=== PATIENT | female | born 1960 | race Caucasian/White ===

== ENCOUNTER 2021-06-15 12:10 | Outpatient (REF) | payer MEDICARE, BC, SELFPAY ==
[2021-06-15 14:09] LABS: Appearance Urine CLEAR; Color Urine YELLOW; Glucose Urine UA NEG (NEG); Leukocyte Esterase Urine NEG (NEG); Nitrite Urine NEG (NEG); Urine Blood NEG (NEG); Urine Ketones NEG (NEG); Urine Protein NEG (NEG-TRACE)
== END 2021-06-15 12:11 | disposition home or self-care (01) ==
LOC: HO.MANLNP 12:10
PROVIDERS: PCP Internal Medicine; Visit Provider Physician Assistant
DX: R30.9 Painful micturition, unspecified (principal)
CPT/HCPCS: 81003; 87086

== ENCOUNTER 2022-06-24 08:03 | Outpatient (REF) | payer MEDICARE, BC, SELFPAY ==
--- NOTE | ~2022-06-24 | XR_ITS ---
EXAMINATION: XR SHOULDER, LEFT CLINICAL INFORMATION: Pain COMPARISON: None TECHNIQUE: Three views of the left shoulder. FINDINGS: Bone alignment is normal. No fracture or dislocation is seen. There are small osteophytes along the inferior glenohumeral joint. Joint spaces are otherwise normal. Soft tissues are normal. XR/XR shoulder LT min 2V IMPRESSION: Mild degenerative changes.
== END 2022-06-24 08:04 | disposition home or self-care (01) ==
LOC: HO.HOSX 08:03
PROVIDERS: Visit Provider Orthopaedic Surgery
DX: M19.012 Primary osteoarthritis, left shoulder (principal); M77.8 Other enthesopathies, not elsewhere classified
CPT/HCPCS: 20610; 73030; 99202; J1100

== ENCOUNTER 2024-04-29 06:45 | Outpatient (REF) | payer MEDICARE, BC, SELFPAY ==
--- NOTE | ~2024-04-29 | XR_ITS ---
EXAMINATION: XR SHOULDER, RIGHT CLINICAL INFORMATION: Pain. COMPARISON: Radiographs dated 11 22. TECHNIQUE: AP external rotation, Grashey, scapular Y, and axillary views of the right shoulder. FINDINGS: There is mild bony demineralization. The glenohumeral joint is intact and shows moderate osteoarthritic change, with exuberant peripheral osteophyte formation at inferior articular surface of the humeral head. The acromioclavicular and coracoclavicular levels are normal. There is a distal acromial undersurface osteophyte, and there is cortical irregularity of the proximal right humerus. No fracture or dislocation is seen. This no focal soft tissue, gas or foreign body. XR/XR shoulder RT min 2V IMPRESSION: 1. There is marked osteoarthritic change of the right glenohumeral joint. 2. Findings suggest right rotator cuff impingement, without nellie calcific tendinitis noted.
== END 2024-04-29 06:46 | disposition home or self-care (01) ==
LOC: HO.HOSX 06:45
PROVIDERS: Visit Provider Orthopaedic Surgery
DX: M19.011 Primary osteoarthritis, right shoulder (principal)
CPT/HCPCS: 20610; 73030; 99212; J0665; J1100

== ENCOUNTER 2024-04-29 13:02 | Outpatient (AMB) | payer MEDICARE, BC, SELFPAY ==
--- NOTE | 2024-04-29 13:06 | A.OFFVIS_ITS ---
Vital Signs 04/29/24 13:10 Height 5 ft 6 in Weight 287 lb BMI 46.3 Intake Visit Reasons: New Prob - Right Shoulder Pain Intake Note: Bernarda is a 63 year old right hand dominant female who presents today for a new problem visit with complaints of right shoulder pain. No injury. She was last seen for her left shoulder on 06/24/22 where the left shoulder was injected which was helpful . MRI done at [facility] of the right shoulder on 03/12/24: Impression: 1. Severe arthritic changes at GH Joint 2. Diffuse Labral Tearing 3. No evidence of RTC tearing 4. Subluxation of tendon of the long head of the biceps, perched upon the anterior lip of the biciptal groove, exhibiting diffuse tendinopathy without full thickness diruption. Allergies walnut Allergy (Severe, Verified 06/24/22 09:06) THROAT SWELLING oxycodone [OXYCODONE] Allergy (Mild, Verified 06/24/22 09:06) ITCHING walnuts Allergy (Unknown, Uncoded 06/24/22 09:06) Anaphylaxis HPI HPI New Prob - Right Shoulder Pain: Details: Bernarda is a 63 year old right hand dominant female who presents today for a new problem visit with complaints of right shoulder pain. No injury. She was last seen for her left shoulder on 06/24/22 where the left shoulder was injected which was helpful . She describes right shoulder discomfort for months. She has been doing home exercises but describes pain at night and with overhead activity. [facility] Medical History (Updated 05/03/24 @ 10:35 by Jt Shannon MD) Rheumatoid arthritis Hypertension Surgical History (Updated 06/24/22 @ 09:09 by Catrina Mann CMA) Status post left breast lumpectomy H/O shoulder surgery H/O right mastectomy Previous section Social History (Updated 06/24/22 @ 09:09 by Catrina Mann CMA) Current occupational status: disabled Physical Exam Vital Signs: BMI result Body Mass Index 46.3 Extrem Other: /hp 4+/5 EC +H/N Results Reviewed Results Reviewed: MRI done at [facility] of the right shoulder on 03/12/24: Impression: 1. Severe arthritic changes at GH Joint 2. Diffuse Labral Tearing 3. No evidence of RTC tearing 4. Subluxation of tendon of the long head of the biceps, perched upon the anterior lip of the biciptal groove, exhibiting diffuse tendinopathy without full thickness diruption. Assessment & Plan Assessment & Plan (1) Primary osteoarthritis, right shoulder: Code(s): M19.011 - Primary osteoarthritis, right shoulder Category: Medical Plan: Bernarda is a 63 yo F iwth right shoulder OA. I injected her SAS as she is having night pain and pain with overhead activity. We discussed PT. At this point she can return to see me PRN. Arthroplasty is an option but not one that she is currently interested in. Orders: Orders XR shoulder RT min 2V 04/29/24 M25.519 - Pain in unspecified shoulder Coding Level of Care Code Est Pt Level 4 (03429) Diagnoses Primary osteoarthritis, right shoulder M19.011
[2024-04-29 13:10] VITALS: BMI 46.3
== END 2024-04-29 14:20 | disposition home or self-care (01) ==
PROVIDERS: PCP Internal Medicine; Visit Provider Orthopaedic Surgery
DX: M19.011 Primary osteoarthritis, right shoulder (principal)
CPT/HCPCS: 99214

== ENCOUNTER 2025-08-17 18:41 | Outpatient (REF) | payer MEDICARE, BC, SELFPAY ==
[2025-08-17 18:43] LABS: MANUAL DIFF FLAG NO
--- OUTSIDE RECORDS SUMMARY | 2025-08-17 18:47 | XMS_ITS | Encounter Summary ---
Author Organization [facility] Address [address] [place] [address] Phone Care Team Providers Care Lpn Or Medical Assistant Name Role Phone Kilo Horowitz MD Unavailable [email or web address] Bhavana Espinoza NP Unavailable [phone] BigLuciano quinn DO Primary Care Provider + Adrianne Mehta MD Unavailable [phone] Danielle Wright VENEER STACKER Unavailable [phone] Ashley Cabello MD Unavailable Jyoti Stone MD Unavailable [phone] Adrianne Mehta MD Unavailable [phone] Luciano Yuen DO Unavailable + Luciano Yuen DO Primary Care Provider + Luciano Yuen DO Unavailable + Encounter Details Date Type Department Care Team (Late st Contact Info) Description 06/15/2021 Procedure Pass [address] [address] Social History Tobacco Use Types Packs/Day Years Used Date Smoking Tobacco: Former Cigarettes 0.8 5 1 988 - 1992 Smokeless Tobacco: Never Alcohol Use Standard Drinks/Week Comments Yes 1 (1 standard drink = 0.6 oz pure alcohol) occasional glass of wine every few months Comments No Sex and Gender Information Value Date Recorded Sex Assigned at Not on file Legal Sex Female 9:48 PM EDT Gender Identity Not on file Sexual Orientation Not on file documented as of this encounter Plan of Treatment Upcoming Encounters Date Type Department Care Team (Late st Contact Info) Description 09/14/2025 2:00 PM EDT Office Visit [facility] [address] [place] [address] Adrianne Mehta MD [address] [place] [address] 09/28/2025 8:00 AM EST Office Visit [facility] [address] [facility] 3rd Floor, [address] [address] Felix Harvey MD [address] [place] [address] 10/14/2025 8:40 AM EST Office Visit [facility] Rhe[facility]ology [address] [place] [address] Katerine Velazquez MD, MPH [address] [place] [address] documented as of this encounter Visit Diagnoses Not on filedocumented in this encounter Care Teams Lpn Or Medical Assistant Relationship Specialty Start Date End Date Luciano Yuen DO [address] [place] [address] PCP - General Internal Medicine 03/18/19 12/09/24 Luciano Yuen DO [address] [place] [address] [place] [address] PCP - General Internal Medicine 12/10/24 Kilo Horowitz MD [email or web address] Historical LMR Provider 09/06/17 Bhavana Espinoza NP [address] [place] [address] Historical LMR Provider 09/06/17 2 Adrianne Mehta MD [address] [place] [address] [email or web address] Primary Oncologist Medical Oncology 06/13/21 06/11/22 Danielle Wright FNP [address] [place] [address] [email or web address] Nurse Practitioner Medical Oncology 09/07/21 Ashley Cabello MD [address] [place] [address] [address] [place] [address] [email or web address] General Surgery 09/11/21 Jyoti Stone MD [address] [place] [address] [email or web address] Oncology 01/01/22 Adrianne Mehta MD [address] [place] [address] Primary Oncologist Medical Oncology 06/13/21 Luciano Yuen DO [address] [place] [address] [place] [address] [email or web address] Insurance Assigned Provider 02/21/24 11/22/24 Luciano Yuen DO [address] [place] [address] [email or web address] Insurance Assigned Provider 02/20/25 documented as of this encounter Additional Source Comments The information contained in this document represents components of the legal health record. It is not the complete legal health record.[facility]
--- OUTSIDE RECORDS SUMMARY | 2025-08-17 18:47 | XMS_ITS | Encounter Summary ---
Author Organization [facility] Address [address] [place] [address] Phone Care Team Providers Care Manager Culture Name Role Phone Kilo Horowitz MD Unavailable [email or web address] Adrianne Mehta MD Unavailable [phone] Bhavana Espinoza MANAGER GROUP HOME Unavailable Bigda, Luciano A DO Primary Care Provider +[phone] Bigda, Luciano A DO Primary Care Provider + Bigda, Luciano A DO Unavailable Adrianne Mehta MD Unavailable [phone] Danielle Wright CAR VARNISHER Unavailable [phone] Ashley Cabello MD Unavailable Jyoti Stone MD Unavailable [phone] Adrianne Mehta MD Unavailable [phone] Bigda, Luciano A DO Unavailable + Bigda, Luciano A DO Primary Care Provider +[phone] Bigda, Luciano A DO Unavailable + Reason for Referral * MRI/CAT Scan - Closed Specialty Diagnoses / Procedures Referred By Contac t Referred To Contact Radiology Diagnoses Peripheral tear of medial meniscus of right knee as current injury, initial encounter Procedures MRI Knee (Right) Luciano Yuen DO Phone: tel: fax: [email or web address] Referral ID Status Reason Start Date Expiration Date Visits Re quested Visits Authorized [id number] Closed 04/08/2018 06/06/2018 1 1 Encounter Details Date Type Department Care Team (Late Contact Info) Description 04/07/2018 Ancillary Orders Virtual Department [address] [place] [address] Luciano Yuen DO [address] [facility] [place] [address] [place] [address] [email or web address] Peripheral tear of medial meniscus of right knee as current injury, initial encounter Social History Tobacco Use Types Packs/Day Years Used Date Smoking Tobacco: Never Smokeless Tobacco: Never Alcohol Use Standard Drinks/Week Comments No 0 (1 standard drink = 0.6 oz pur e alcohol) Comments No Sex and Gender Information Value Date Recorded Sex Assigned at Not on file Legal Sex Female 9:48 PM EDT Gender Identity Not on file Sexual Orientation Not on file documented as of this encounter Plan of Treatment Upcoming Encounters Date Type Department Care Team (Late Contact Info) Description 09/14/2025 2:00 PM EDT Office Visit [facility] at [address] [address] Adrianne Mehta MD [address] [place] [address] 09/28/2025 8:00 AM EST Office Visit [facility] [address] [place] [address] 3rd Floor, [address] [place] [address] Felix Harvey MD [address] [place] [address] 10/14/2025 8:40 AM EST Office Visit [facility] Rhe[facility] [address] [place] [address] Katerine Velazquez MD, MPH [address] [facility], [address] [place] [address] [email or web address] documented as of this encounter Results * MRI KNEE WITHOUT CONTRAST (RIGHT) (04/12/2018 8:50 AM EDT) Anatomical Region Laterality Modality Knee Right Magnetic Resonan ce 04/12/2018 4:39 PM EDT Impressions 04/12/2018 6:42 PM EDT 1. Limited study as described above. 2. Extrusion of the remaining posterior horn of the lateral meniscus. 3. Extrusion of the remaining anterior horn of the medial meniscus. 4. Probably complete tear of the anterior cruciate ligament. 5. Advanced tricompartmental cartilage loss with adjacent degenerative type changes of the bones as described above. 6. Focal longitudinal tear of the medial collateral ligament. 7. Suggestion of partial thickness tear of the lateral collateral ligament and popliteal tendon attachment as described above. POS - [id number] Edited by: Steffi Brantley on 04/12/2018 6:36 PM Narrative 04/12/2018 6:42 PM EDT EXAM: MRI KNEE WITHOUT CONTRAST (RIGHT) COMPARISON: Radiograph of the bilateral knees on March 03, 2017. TECHNIQUE: Exam performed on a 1.5 Telma high-field MRI scanner. Axial proton density with fat suppression, coronal proton density and proton density with fat suppression, sagittal T1, oblique sagittal proton density and proton density with fat suppression parallel to the plane of the ACL sequences were obtained. FINDINGS: Motion artifact partially limits evaluation. BONES AND SOFT TISSUES: No fracture or dislocation. Cystic changes surrounded by mild edema involving the medial femoral condyle and medial tibial plateau. Areas of bone marrow edema surrounding cystic changes are also noted in the anterior nonweight bearing and weight bearing aspects of lateral femoral condyle. Mild soft tissue swelling in the medial aspect of the knee. CARTILAGE: Patellofemoral compartment: Irregularity of the cartilage overlying the patella and trochlear region. Medial compartment: Near complete loss of the cartilage overlying the medial femoral condyle and medial tibial plateau. Lateral compartment: Near complete loss of the cartilage in the medial aspect of the lateral femoral condyle and lateral tibial plateau. FLUID: Small suprapatellar joint effusion. TENDONS AND LIGAMENTS: Longitudinal focal tear of the medial collateral ligament. Iliotibial band appears intact. Suggestion of partial thickness tear of the lateral collateral ligament at insertion of the lateral femoral condyle. Suggestion of partial thickness tear of the popliteal tendon attachment into the lateral femoral condyle. Posterior cruciate ligament is intact. The fibers of the anterior cruciate ligament are not identified. The quadriceps and patellar tendons are intact. MENISCI: Lateral meniscus: The anterior horn and body of the lateral meniscus are not seen, probably completely torn. Extrusion of the posterior horn of the meniscus. Medial meniscus: Extrusion of the anterior horn of the medial meniscus. Very small amount of residual meniscal material of the body and posterior horn. Procedure Note Zoë Alfaro MD - 04/12/2018 EXAM: MRI KNEE WITHOUT CONTRAST (RIGHT) COMPARISON: Radiograph of the bilateral knees on March 03, 2017. TECHNIQUE: Exam performed on a 1.5 Telma high-field MRI scanner. Axialproton density with fat suppression, coronal proton density and protondensity with fat suppression, sagittal T1, oblique sagittal proton densityand proton density with fat suppression parallel to the plane of the ACLsequences were obtained. FINDINGS: Motion artifact partially limits evaluation. BONES AND SOFT TISSUES: No fracture or dislocation. Cystic changessurrounded by mild edema involving the medial femoral condyle and medialtibial plateau. Areas of bone marrow edema surrounding cystic changes arealso noted in the anterior nonweight bearing and weight bearing aspects oflateral femoral condyle. Mild soft tissue swelling in the medial aspect ofthe knee. CARTILAGE: Patellofemoral compartment: Irregularity of the cartilage overlying thepatella and trochlear region. Medial compartment: Near complete loss of the cartilage overlying themedial femoral condyle and medial tibial plateau. Lateral compartment: Near complete loss of the cartilage in the medialaspect of the lateral femoral condyle and lateral tibial plateau. FLUID: Small suprapatellar joint effusion. TENDONS AND LIGAMENTS: Longitudinal focal tear of the medial collateral ligament. Iliotibial bandappears intact. Suggestion of partial thickness tear of the lateralcollateral ligament at insertion of the lateral femoral condyle.Suggestion of partial thickness tear of the popliteal tendon attachmentinto the lateral femoral condyle. Posterior cruciate ligament is intact. The fibers of the anterior cruciateligament are not identified. The quadriceps and patellar tendons are intact. MENISCI: Lateral meniscus: The anterior horn and body of the lateral meniscus arenot seen, probably completely torn. Extrusion of the posterior horn of themeniscus. Medial meniscus: Extrusion of the anterior horn of the medial meniscus.Very small amount of residual meniscal material of the body and posteriorhorn. IMPRESSION: 1. Limited study as described above. 2. Extrusion of the remaining posterior horn of the lateral meniscus. 3. Extrusion of the remaining anterior horn of the medial meniscus. 4. Probably complete tear of the anterior cruciate ligament. 5. Advanced tricompartmental cartilage loss with adjacent degenerativetype changes of the bones as described above. 6. Focal longitudinal tear of the medial collateral ligament. 7. Suggestion of partial thickness tear of the lateral collateralligament and popliteal tendon attachment as described above. POS - [id number] Edited by: Steffi Brantley on 04/12/2018 6:36 PM Luciano Yuen DO IM MR EXTREMITY Final Result documented in this encounter Visit Diagnoses Diagnosis Peripheral tear of medial meniscus of right knee as current injury, initial encounter Peripheral tear of medial meniscus of right knee as current injury, initial encounter documented in this encounter Care Teams Manager Culture Relationship Specialty Start Date End Date Luciano Yuen DO [address] [place] [address] PCP - General 10/16/17 03/17/19 Luciano Yuen DO [address] [place] [address] PCP - General Internal Medicine 03/18/19 12/09/24 Luciano Yuen DO [address] [place] [address] PCP - General Internal Medicine 12/10/24 Kilo Horowitz MD [email or web address] Historical LMR Provider 09/06/17 Adrianne Mehta MD [address] [place] [address] [email or web address] Historical LMR Provider 09/06/17 06/12/21 Bhavana Espinoza NP [address] [place] [address] Historical LMR Provider 09/06/17 2 Luciano Yuen DO [address] [place] [address] [email or web address] Insurance Assigned Provider 03/20/19 06/12/21 Adrianne Mehta MD [address] [place] [address] Primary Oncologist Medical Oncology 06/13/21 06/11/22 Danielle Wright, CAR VARNISHER [address] [place] [address] Nurse Practitioner Medical Oncology 09/07/21 Ashley Cabello MD [address] [facility] 8 [place] [address] [email or web address] General Surgery 09/11/21 Jyoti Stone MD [address] [place] [address] [email or web address] Radiation Oncology 01/01/22 Adrianne Mehta MD [address] [place] [address] [email or web address] Primary Oncologist Medical Oncology 06/13/21 Luciano Yuen DO [address] [place] [address] [email or web address] Insurance Assigned Provider 02/21/24 11/22/24 Luciano Yuen DO [address] [place] [address] [email or web address] Insurance Assigned Provider 02/20/25 documented as of this encounter Additional Source Comments The information contained in this document represents components of the legal health record. It is not the complete legal health record.[facility]
--- OUTSIDE RECORDS SUMMARY | 2025-08-17 18:47 | XMS_ITS | Encounter Summary ---
Author Organization [facility] Address [address] [place] [address] [address] [place] [address] Phone Care Team Providers Care Child Support Officer Name Role Phone Kilo Horowitz MD Unavailable [email or web address] Adrianne Mehta MD Unavailable [phone] Bhavana Espinoza MUSEUM SPECIALIST Unavailable Bigda, Luciano A DO Primary Care Provider [phone] Bigda, Luciano A DO Primary Care Provider [phone] Bigda, Luciano A DO Unavailable Adrianne Mehta MD Unavailable [phone] Danielle Wright TOPOGRAPHICAL SURVEYOR Unavailable [phone] Ashley Cabello MD Unavailable Jyoti Stone MD Unavailable [phone] Adrianne Mehta MD Unavailable [phone] Bigda, Luciano A DO Unavailable Bigda, Luciano A DO Primary Care Provider [phone] Bigda, Luciano A DO Unavailable Encounter Details Date Type Department Care Team (Late st Contact Info) Description 04/07/2018 Procedure Pass [facility], [address] [id number] Social History Tobacco Use Types Packs/Day Years [...] on file documented as of this encounter Last Filed Vital Signs Vital Sign Reading Time Taken Comments Blood Pressure - - Pulse - - Temperature - - Respiratory Rate - - Oxygen Saturation - - Inhaled Oxygen Concentration - - Weight 111.1 kg (245 lb) 04/09/2018 9:32 AM EDT Height 170.2 cm (5' 7 ) 04/09/2018 9:32 AM EDT Body Mass Index 38.37 04/09/2018 9:32 AM EDT documented in this encounter Plan of Treatment Upcoming Encounters Date Type Department Care Team (Late st Contact Info) Description 09/14/2025 2:00 PM EDT Office Visit [facility] at [address] [address] Adrianne Mehta MD [address] [place] [address] 09/28/2025 8:00 AM EST Office Visit [facility] [address] [place] [address] Dr 3rd Floor, [address] [address] Felix Harvey MD [address] [place] [address] 10/14/2025 8:40 AM EST Office Visit [facility] Rheumatology [address] [place] [address] [place] [address] Katerine Velazquez MD, MPH [address] [place] [address] documented as of this encounter Visit Diagnoses Not on filedocumented in this encounter Care Teams Child Support Officer Relationship Specialty Start Date End Date Luciano uYen DO [address] [place] [address] PCP - General 10/16/17 03/17/19 FrandyLuciano quinnDO [address] [place] [address] PCP - General Internal Medicine 03/18/19 12/09/24 Alpa Luciano JinDO [address] [place] [address] PCP - General Internal Medicine 12/10/24 Kilo Horowitz MD [email or web address] Historical LMR Provider 09/06/17 Adrianne Mehta MD [address] [place] [address] Historical LMR Provider 09/06/17 06/12/21 Bhavana Espinoza NP [address] [place] [address] Historical LMR Provider 09/06/17 Luciano Yuen DO [address] [place] [address] Insurance Assigned Provider 03/20/19 06/12/21 Adrianne Mehta MD [address] [place] [address] Primary Oncologist Medical Oncology 06/13/21 06/11/22 Danielle Wright FNP [address] [place] [address] [email or web address] Nurse Practitioner Medical Oncology 09/07/21 Ashley Cabello MD [address] [facility] [address] [place] [address] [email or web address] General Surgery 09/11/21 Jyoti Stone MD [address] [place] [address] [email or web address] Oncology 01/01/22 Adrianne Mehta MD [address] [place] [address] [email or web address] Primary Oncologist Medical Oncology 06/13/21 Luciano Yuen DO [address] [place] [address] [email or web address] Insurance Assigned Provider 02/21/24 11/22/24 Luciano Yuen DO [address] [place] [address] Insurance Assigned Provider 02/20/25 documented as of this encounter Additional Source Comments The information contained in this document represents components of the legal health record. It is not the complete legal health record.[facility]
--- OUTSIDE RECORDS SUMMARY | 2025-08-17 18:47 | XMS_ITS | Encounter Summary ---
Author Organization [facility] Address [address] [place] [address] [address] [place] [address] Phone Care Team Providers Care Planting Material Carrier Name Role Phone Alpa, Luciano A DO Unavailable Kilo Horowitz MD Unavailable [email or web address] Adrianne Mehta MD Unavailable Bhavana Espinoza NP Unavailable Bigda, Luciano A DO Primary Care Provider [phone] Bigda, Luciano A DO Primary Care Provider [phone] Bigda, Luciano A DO Unavailable Adrianne Mehta MD Unavailable Danielle Wright MACHINE FILLER SHREDDER Unavailable [phone] Ashley Cabello MD Unavailable Jyoti Stone MD Unavailable [phone] Adrianne Mehta MD Unavailable Bigda, Luciano A DO Unavailable Bigda, Luciano A DO Primary Care Provider [phone] Bigda, Luciano A DO Unavailable Encounter Details Date Type Department Care Team (Late st Contact Info) Description 12/08/2017 Ancillary Orders [facility] External Provider Virtual Department [address] [place] [address] Andres Gamez [address] [place] [phone] [email or web address] Social History Tobacco Use Types Packs/Day Years [...] Description 09/14/2025 2:00 PM EDT Office Visit [facility] at [address] [address] Adrianne Mehta MD [address] [place] [address] 09/28/2025 8:00 AM EST Office Visit [facility] [address] [place] [address] 3rd Floor, [address] [place] [address] Felix Harvey MD [address] [place] [address] 10/14/2025 8:40 AM EST Office Visit [facility] Rheumatology [address] [place] [address] Katerine Velazquez MD, MPH [address] [place] [address], [address] [address] documented as of this encounter Visit Diagnoses Not on filedocumented in this encounter Care Teams Planting Material Carrier Relationship Specialty Start Date End Date Luciano Yuen DO [address] [place] [address] PCP - General 10/16/17 03/17/19 Luciano Yuen DO [address] [place] [address] [email or web address] PCP - General Internal Medicine 03/18/19 12/09/24 Luciano Yuen DO [address] [place] [address] PCP - General Internal Medicine 12/10/24 Luciano Yuen DO [address] [place] [address] Historical LMR Provider 09/06/17 12/08/17 Kilo Horowitz MD [email or web address] Historical LMR Provider 09/06/17 Adrianne Mehta MD [address] [place] [address] [email or web address] Historical LMR Provider 09/06/17 06/12/21 Bhavana Espinoza NP [address] [place] [address] Historical LMR Provider 09/06/17 Luciano Yuen DO [address] [place] [address] [email or web address] Insurance Assigned Provider 03/20/19 06/12/21 Adrianne Mehta MD [address] [place] [phone] [email or web address] Primary Oncologist Medical Oncology 06/13/21 06/11/22 Danielle Wright FNP [address] [place] [address] Nurse Practitioner Medical Oncology 09/07/21 Ashley Cabello MD [address] [place] [address] [address] [place] [address] General Surgery 09/11/21 Jyoti Stone MD [address] [place] [address] [email or web address] Oncology 01/01/22 Adrianne Mehta MD [address] [place] [address] [email or web address] Primary Oncologist Medical Oncology 06/13/21 Luciano Yuen DO [address] [place] [address] Insurance Assigned Provider 02/21/24 11/22/24 Luciano Yuen DO [address] [place] [address] Insurance Assigned Provider 02/20/25 documented as of this encounter Additional Source Comments The information contained in this document represents components of the legal health record. It is not the complete legal health record.[facility]
--- OUTSIDE RECORDS SUMMARY | 2025-08-17 18:47 | XMS_ITS | Encounter Summary ---
Author Organization [facility] Address [address] [place] [address] [address] [place] [address] Phone Care Team Providers Care Travertine Installer Name Role Phone Kilo Horowitz MD Unavailable [email or web address] Adrianne Mehta MD Unavailable Bhavana Espinoza HEALTH CENTER MANAGER Unavailable Bigda, Luciano A DO Primary Care Provider [phone] Bigda, Luciano A DO Primary Care Provider [phone] Bigda, Luciano A DO Unavailable Adrianne Mehta MD Unavailable Danielle Wright CROP SETTING OUT MACHINE OPERATOR Unavailable [phone] Ashley Cabello MD Unavailable Jyoti Stone MD Unavailable [phone] Adrianne Mehta MD Unavailable Bigda, Luciano A DO Unavailable Bigda, Luciano A DO Primary Care Provider [phone] Bigda, Luciano A DO Unavailable Encounter Details Date Type Department Care Team (Late st Contact Info) Description 02/08/2019 Ancillary Orders Virtual Department [address] [place] [address] Luciano Yuen DO [address] [facility] [place] [address] [place] [address] Breast screening Social History Tobacco Use Types Packs/Day Years [...] Description 09/14/2025 2:00 PM EDT Office Visit [facility] at [address] [address] Adrianne Mehta MD [address] [place] [address] 09/28/2025 8:00 AM EST Office Visit [facility] [address] [place] [address] 3rd Floor, [address] [place] [address] Felix Harvey MD [address] [place] [address] 10/14/2025 8:40 AM EST Office Visit [facility] Rheumatology [address] [place] [address] Katerine Velazquez MD, MPH [address] [place] [address], [address] [address] documented as of this encounter Results * BI MAMMOGRAM SCREENING WITH TOMOSYNTHESIS WITH CAD (LEFT) (02/10/2019 12:48 PM EDT) Anatomical Region Laterality Modality Breast Left, Breast Bilateral Left Ma mmography 02/10/2019 5:01 PM EDT Impressions 02/10/2019 5:05 PM EDT LEFT BREAST: Negative, no evidence of malignancy. Normal interval follow-up is recommended in 12 months. Bi-RAD: BI-RADS CATEGORY: 1 - Negative. DENSITY: The breast tissue is heterogeneously dense, an appearance which lowers the sensitivity of mammography. POS - [id number] Narrative 02/10/2019 5:05 PM EDT STUDY: Unilateral left screening mammography with tomosynthesis and CAD History: Status post right mastectomy in 2002 for breast cancer. TECHNIQUE: Unilateral left full-field digital screening mammography is obtained and read in conjunction with computer-aided detection. Tomosynthesis as well as 2-D C view imaging were obtained. COMPARISON: Comparison made to multiple prior, most recent December 08, 2017, and most remote April 14, 2012. BREAST COMPOSITION: The breast is heterogeneously dense, which may obscure small masses. LEFT BREAST: No significant masses, calcifications or other abnormalities are seen. Procedure Note Zoë Alfaro MD - 02/10/2019 STUDY: Unilateral left screening mammography with tomosynthesis and CAD History: Status post right mastectomy in 2002 for breast cancer. TECHNIQUE: Unilateral left full-field digital screening mammography isobtained and read in conjunction with computer-aided detection.Tomosynthesis as well as 2-D C view imaging were obtained. COMPARISON: Comparison made to multiple prior, most recent November, and most remote April 14, 2012. BREAST COMPOSITION: The breast is heterogeneously dense, which may obscuresmall masses. LEFT BREAST: No significant masses, calcifications or otherabnormalities are seen. IMPRESSION: LEFT BREAST: Negative, no evidence of malignancy. Normal intervalfollow-up is recommended in 12 months. Bi-RAD: BI-RADS CATEGORY: 1 - Negative. DENSITY: The breast tissue is heterogeneously dense, an appearance whichlowers the sensitivity of mammography. POS - [id number] us Luciano A Bigda DO IMG MG EXAMS Final Result documented in this encounter Visit Diagnoses Diagnosis Breast screening Breast screening, unspecified Breast screening Breast screening, unspecified documented in this encounter Care Teams Travertine Installer Relationship Specialty Start Date End Date Luciano Yuen DO [address] [place] [address] PCP - General 10/16/17 03/17/19 Luciano Yuen DO [address] [place] [address] PCP - General Internal Medicine 03/18/19 12/09/24 Luciano Yuen DO [address] [place] [address] PCP - General Internal Medicine 12/10/24 Kilo Horowitz MD [email or web address] Historical LMR Provider 09/06/17 Adrianne Mehta MD [address] [place] [address] Historical LMR Provider 09/06/17 06/12/21 Bhavana Espinoza NP [address] [place] [address] Historical LMR Provider 09/06/17 2 Luciano Yuen DO [address] [place] [address] [email or web address] Insurance Assigned Provider 03/20/19 06/12/21 Adrianne Mehta MD [address] [place] [address] Primary Oncologist Medical Oncology 06/13/21 06/11/22 Danielle Wright FNP [address] [place] [address] [email or web address] Nurse Practitioner Medical Oncology 09/07/21 Ashley Cabello MD [address] [facility] [address] [place] [address] [email or web address] Surgery 09/11/21 Jyoti Stone MD [address] [place] [address] [email or web address] 01/01/22 Adrianne Mehta MD [address] [place] [address] [email or web address] Primary Oncologist Medical Oncology 06/13/21 Luciano Yuen DO [address] [place] [address] [email or web address] Insurance Assigned Provider 02/21/24 11/22/24 Luciano Yuen DO [address] [place] [address] [email or web address] Insurance Assigned Provider 02/20/25 documented as of this encounter Additional Source Comments The information contained in this document represents components of the legal health record. It is not the complete legal health record.[facility]
--- OUTSIDE RECORDS SUMMARY | 2025-08-17 18:47 | XMS_ITS | Clinical Summary ---
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 pending clinical course and findings of hand and foot plain films. Assessment & Plan (10/08/2022 10:31 PM EST): Seropositive RA Previously treated with TNFi Current tx MTX 20 mg weekly and Plaquenil 200 mg BID RA is active Will need to consider addition of biologic with permission from oncologist (remote hx of breast Cancer and recent hx of DCIS) I would favor Rituxan or perhaps consider Samson Pt will discuss with her oncologist and let me know decision For now continue MTX and Plaquenil Lab monitoring today Eye exam UTD Recommend UTD vaccinations Assessment & Plan (06/23/2022 2:48 PM EDT): Carries dx of seropositive RA Previously treated with TNF I Current tx MTX 17.5 mg weekly and Plaquenil 200 mg BID Appears RA somewhat active , (new CTS bilateral and tender joint Some pain 2/2 to osteoarthritis- :ow back , knees Tolerating low dose cymbalta 20 mg /day but has not noticed any improvement in pain. Increase dose to 30 mg/day - AE discussed and patient will let me know of any effects on mood - prednisone -restart at 5 mg day, taper after one month - Increase MTX 20 mg po weekly- split dose to help with absorption - Continue folic acid 1mg daily - Continue hydroxychloroquine -eye exam UTD - Monitoring labs due today Assessment & Plan (06/13/2021 9:54 AM EDT): Patient's rheumatoid arthritis is active but stable. Only extra-articular manifestation of xerostomia. She will remain on methotrexate. She will remain on folic acid. No evidence of toxicity. She may continue to use hydrocodone. Hospital Outpatient Visit on 04/12/2021 Component Date Value Ref Range Status 25 OH VIT D (TOTAL) 04/12/2021 35 30 - 60 ng/mL Final SODIUM 04/12/2021 139 133 - 146 mmol/L Final POTASSIUM 04/12/2021 4.7 3.3 - 5.1 mmol/L Final CHLORIDE 04/12/2021 104 96 - 108 mmol/L Final CO2 04/12/2021 27 21 - 35 mmol/L Final BUN 04/12/2021 22* 6 - 19 mg/dL Final CREATININE 04/12/2021 1.00 0.5 - 1.5 mg/dL Final GLUCOSE 04/12/2021 102* 70 - 99 mg/dL Final ALBUMIN 04/12/2021 3.7* 3.9 - 4.8 g/dL Final TOTAL PROTEIN 04/12/2021 7.4 6.5 - 8.0 g/dL Final CALCIUM 04/12/2021 9.3 8.4 - 10.3 mg/dL Final ALKALINE PHOSPHATASE 04/12/2021 93 39 - 117 U/L Final TOTAL BILIRUBIN 04/12/2021 0.3 0.0 - 1.2 mg/dL Final AST 04/12/2021 25 0 - 37 U/L Final ALT 04/12/2021 21 0 - 40 U/L Final GLOBULIN 04/12/2021 3.7 1 - 4.8 g/dL Final EGFR 04/12/2021 61 >59 mL/min/1.73m2 Final Estimated glomerular filtration rate calculated using the CKD-EPI equation. ANION GAP 04/12/2021 13 10 - 20 mmol/L Final C REACTIVE PROTEIN 04/12/2021 15.2* 0.0 - 4.0 mg/L Final WBC 04/12/2021 5.03 4.00 - 11.00 K/uL Final RBC 04/12/2021 4.10 3.72 - 5.30 M/uL Final HGB 04/12/2021 11.9 11.4 - 15.9 g/dL Final HCT 04/12/2021 37.0 34.2 - 46.8 % Final PLT 04/12/2021 316 140 - 430 K/uL Final MCV 04/12/2021 90.2 78.0 - 97.0 fL Final MCH 04/12/2021 29.0 25.0 - 33.0 pg Final MCHC 04/12/2021 32.2 32.0 - 36.0 g/dL Final RDW 04/12/2021 13.7 11.0 - 16.0 % Final MPV 04/12/2021 9.6 8.4 - 12.8 fl Final NRBC 04/12/2021 0.00 0 /100 WBCs Final ABSOLUTE NRBC 04/12/2021 0.00 0 K/uL Final DIFF METHOD 04/12/2021 Auto Final NEUTS 04/12/2021 60.6 43.0 - 75.0 % Final LYMPHS 04/12/2021 28.6 18.2 - 47.4 % Final MONOS 04/12/2021 7.4 4.00 - 11.00 % Final EOS 04/12/2021 2.4 0.0 - 8.0 % Final BASOS 04/12/2021 0.8 0.0 - 2.0 % Final Granulocytes, immature (%) 04/12/2021 0.2 0.0 - 0.9 % Final ABSOLUTE NEUTS 04/12/2021 3.05 1.80 - 7.70 K/uL Final ABSOLUTE LYMPHS 04/12/2021 1.44 1.00 - 3.10 K/uL Final ABSOLUTE MONOS 04/12/2021 0.37 0.20 - 0.80 K/uL Final ABSOLUTE EOS 04/12/2021 0.12 0.00 - 0.80 K/uL Final ABSOLUTE BASOS 04/12/2021 0.04 0.00 - 0.09 K/uL Final Granulocytes, immature 04/12/2021 0.01 0.00 - 0.05 K/uL Final Assessment & Plan (04/12/2021 9:34 AM EDT): Polyarticular erosive disease affecting large and small joints in the upper and lower portions of her body doing well on methotrexate at 20 mg weekly. No side effects. Spoke about potential side effects including hepatotoxicity and interstitial lung disease. She has had none of these. We will check her lab test. Previous lab work was reviewed. She will stay on the same dose. She will continue on folic acid. No visits with results within 3 Month(s) from this visit. Latest known visit with results is: Hospital Outpatient Visit on 01/03/2021 Component Date Value Ref Range Status 25 OH VIT D (TOTAL) 01/03/2021 35 30 - 60 ng/mL Final SODIUM 01/03/2021 135 133 - 146 mmol/L Final POTASSIUM 01/03/2021 4.4 3.3 - 5.1 mmol/L Final CHLORIDE 01/03/2021 100 96 - 108 mmol/L Final CO2 01/03/2021 28 21 - 35 mmol/L Final BUN 01/03/2021 17 6 - 19 mg/dL Final CREATININE 01/03/2021 0.90 0.5 - 1.5 mg/dL Final GLUCOSE 01/03/2021 96 70 - 99 mg/dL Final ALBUMIN 01/03/2021 3.7* 3.9 - 4.8 g/dL Final TOTAL PROTEIN 01/03/2021 6.8 6.5 - 8.0 g/dL Final CALCIUM 01/03/2021 9.7 8.4 - 10.3 mg/dL Final ALKALINE PHOSPHATASE 01/03/2021 87 39 - 117 U/L Final TOTAL BILIRUBIN 01/03/2021 0.2 0.0 - 1.2 mg/dL Final AST 01/03/2021 22 0 - 37 U/L Final ALT 01/03/2021 23 0 - 40 U/L Final GLOBULIN 01/03/2021 3.1 1 - 4.8 g/dL Final EGFR 01/03/2021 69 >59 mL/min/1.73m2 Final Estimated glomerular filtration rate calculated using the CKD-EPI equation. ANION GAP 01/03/2021 11 10 - 20 mmol/L Final C REACTIVE PROTEIN 01/03/2021 5.7* 0.0 - 4.0 mg/L Final Assessment & Plan (01/03/2021 11:50 AM EST): Her polyarticular seropositive erosive rheumatoid arthritis is active but stable. No extra-articular manifestations of disease. No toxicity to methotrexate. Previous lab work was reviewed and new lab work will be ordered for today. After full discussion risk and benefits methotrexate will be increased from 10 mg to 15 mg a week. Follow-up phone call to assess efficacy in 4 weeks. Understands risks of long- term use of methotrexate including possibility of interstitial lung disease, hepatotoxicity, and osteopenia as well as immunosuppression. Assessment & Plan (10/31/2020 11:02 AM EST): Seropositive rheumatoid arthritis affecting large and small joints in the upper and lower portions of her body. After full discussion risk and benefits start methotrexate 10 mg weekly with 1 mg of folic acid daily and continue on naproxen 500 g twice daily and Plaquenil 400 mg daily. Risks and benefits were discussed. Combination therapy reviewed. Lab work will be done prior to next visit. Previous lab work reviewed. No visits with results within 3 Month(s) from this visit. Latest known visit with results is: Hospital Outpatient Visit on 06/27/2020 Component Date Value Ref Range Status 25 OH VIT D (TOTAL) 06/27/2020 24* 30 - 60 ng/mL Final TSH 06/27/2020 1.47 0.27 - 4.20 uIU/mL Final C REACTIVE PROTEIN 06/27/2020 6.8* 0.0 - 4.0 mg/L Final WBC 06/27/2020 5.94 4.00 - 11.00 K/uL Final Note Reference Range updates to all CBC and Differential results. RBC 06/27/2020 4.36 3.72 - 5.30 M/uL Final HGB 06/27/2020 12.4 11.4 - 15.9 g/dL Final Note updated Reference Ranges for all CBC and Differential results. HCT 06/27/2020 38.7 34.2 - 46.8 % Final PLT 06/27/2020 298 140 - 430 K/uL Final MCV 06/27/2020 88.8 78.0 - 97.0 fL Final MCH 06/27/2020 28.4 25.0 - 33.0 pg Final MCHC 06/27/2020 32.0 32.0 - 36.0 g/dL Final RDW 06/27/2020 13.2 11.0 - 16.0 % Final MPV 06/27/2020 10.0 8.4 - 12.8 fl Final NRBC 06/27/2020 0.00 0 /100 WBCs Final ABSOLUTE NRBC 06/27/2020 0.00 0 K/uL Final DIFF METHOD 06/27/2020 Auto Final NEUTS 06/27/2020 49.1 43.0 - 75.0 % Final LYMPHS 06/27/2020 37.9 18.2 - 47.4 % Final MONOS 06/27/2020 9.4 4.00 - 11.00 % Final EOS 06/27/2020 2.7 0.0 - 8.0 % Final BASOS 06/27/2020 0.7 0.0 - 2.0 % Final Granulocytes, immature (%) 06/27/2020 0.2 0.0 - 0.9 % Final ABSOLUTE NEUTS 06/27/2020 2.92 1.80 - 7.70 K/uL Final ABSOLUTE LYMPHS 06/27/2020 2.25 1.00 - 3.10 K/uL Final ABSOLUTE MONOS 06/27/2020 0.56 0.20 - 0.80 K/uL Final ABSOLUTE EOS 06/27/2020 0.16 0.00 - 0.80 K/uL Final ABSOLUTE BASOS 06/27/2020 0.04 0.00 - 0.09 K/uL Final Granulocytes, immature 06/27/2020 0.01 0.00 - 0.05 K/uL Final SODIUM 06/27/2020 138 133 - 146 mmol/L Final POTASSIUM 06/27/2020 4.5 3.3 - 5.1 mmol/L Final CHLORIDE 06/27/2020 102 96 - 108 mmol/L Final CO2 06/27/2020 27 21 - 35 mmol/L Final BUN 06/27/2020 19 6 - 19 mg/dL Final CREATININE 06/27/2020 1.00 0.5 - 1.5 mg/dL Final GLUCOSE 06/27/2020 98 70 - 99 mg/dL Final ALBUMIN 06/27/2020 4.1 3.9 - 4.8 g/dL Final TOTAL PROTEIN 06/27/2020 7.2 6.5 - 8.0 g/dL Final CALCIUM 06/27/2020 9.7 8.4 - 10.3 mg/dL Final ALKALINE PHOSPHATASE 06/27/2020 79 39 - 117 U/L Final TOTAL BILIRUBIN 06/27/2020 0.3 0.0 - 1.2 mg/dL Final AST 06/27/2020 23 0 - 37 U/L Final ALT 06/27/2020 15 0 - 40 U/L Final GLOBULIN 06/27/2020 3.1 1 - 4.8 g/dL Final EGFR 06/27/2020 62 >59 mL/min/1.73m2 Final Estimated glomerular filtration rate calculated using the CKD-EPI equation. ANION GAP 06/27/2020 14 10 - 20 mmol/L Final Assessment & Plan (08/01/2020 2:53 PM EDT): Polyarticular active disease without extra-articular manifestations in a patient with a history of severe bilateral knee osteoarthritis and a history of breast cancer and moderate obesity. She will continue on hydrocodone 10 mg every 8 hours as needed. She will continue on 400 with a grams of hydroxychloroquine daily. She understands the long-term risks and she will get yearly eye exams to rule out retinal toxicity. Laboratory work was reviewed. Hospital Outpatient Visit on 06/27/2020 Component Date Value Ref Range Status 25 OH VIT D (TOTAL) 06/27/2020 24* 30 - 60 ng/mL Final TSH 06/27/2020 1.47 0.27 - 4.20 uIU/mL Final C REACTIVE PROTEIN 06/27/2020 6.8* 0.0 - 4.0 mg/L Final WBC 06/27/2020 5.94 4.00 - 11.00 K/uL Final Note Reference Range updates to all CBC and Differential results. RBC 06/27/2020 4.36 3.72 - 5.30 M/uL Final HGB 06/27/2020 12.4 11.4 - 15.9 g/dL Final Note updated Reference Ranges for all CBC and Differential results. HCT 06/27/2020 38.7 34.2 - 46.8 % Final PLT 06/27/2020 298 140 - 430 K/uL Final MCV 06/27/2020 88.8 78.0 - 97.0 fL Final MCH 06/27/2020 28.4 25.0 - 33.0 pg Final MCHC 06/27/2020 32.0 32.0 - 36.0 g/dL Final RDW 06/27/2020 13.2 11.0 - 16.0 % Final MPV 06/27/2020 10.0 8.4 - 12.8 fl Final NRBC 06/27/2020 0.00 0 /100 WBCs Final ABSOLUTE NRBC 06/27/2020 0.00 0 K/uL Final DIFF METHOD 06/27/2020 Auto Final NEUTS 06/27/2020 49.1 43.0 - 75.0 % Final LYMPHS 06/27/2020 37.9 18.2 - 47.4 % Final MONOS 06/27/2020 9.4 4.00 - 11.00 % Final EOS 06/27/2020 2.7 0.0 - 8.0 % Final BASOS 06/27/2020 0.7 0.0 - 2.0 % Final Granulocytes, immature (%) 06/27/2020 0.2 0.0 - 0.9 % Final ABSOLUTE NEUTS 06/27/2020 2.92 1.80 - 7.70 K/uL Final ABSOLUTE LYMPHS 06/27/2020 2.25 1.00 - 3.10 K/uL Final ABSOLUTE MONOS 06/27/2020 0.56 0.20 - 0.80 K/uL Final ABSOLUTE EOS 06/27/2020 0.16 0.00 - 0.80 K/uL Final ABSOLUTE BASOS 06/27/2020 0.04 0.00 - 0.09 K/uL Final Granulocytes, immature 06/27/2020 0.01 0.00 - 0.05 K/uL Final SODIUM 06/27/2020 138 133 - 146 mmol/L Final POTASSIUM 06/27/2020 4.5 3.3 - 5.1 mmol/L Final CHLORIDE 06/27/2020 102 96 - 108 mmol/L Final CO2 06/27/2020 27 21 - 35 mmol/L Final BUN 06/27/2020 19 6 - 19 mg/dL Final CREATININE 06/27/2020 1.00 0.5 - 1.5 mg/dL Final GLUCOSE 06/27/2020 98 70 - 99 mg/dL Final ALBUMIN 06/27/2020 4.1 3.9 - 4.8 g/dL Final TOTAL PROTEIN 06/27/2020 7.2 6.5 - 8.0 g/dL Final CALCIUM 06/27/2020 9.7 8.4 - 10.3 mg/dL Final ALKALINE PHOSPHATASE 06/27/2020 79 39 - 117 U/L Final TOTAL BILIRUBIN 06/27/2020 0.3 0.0 - 1.2 mg/dL Final AST 06/27/2020 23 0 - 37 U/L Final ALT 06/27/2020 15 0 - 40 U/L Final GLOBULIN 06/27/2020 3.1 1 - 4.8 g/dL Final EGFR 06/27/2020 62 >59 mL/min/1.73m2 Final Estimated glomerular filtration rate calculated using the CKD-EPI equation. ANION GAP 06/27/2020 14 10 - 20 mmol/L Final Assessment & Plan (06/27/2020 10:18 AM EDT): Severe polyarticular rheumatoid arthritis. Patient is Plaquenil be increased to 400 mg daily and she will remain stable on 500 g of naproxen sodium twice daily and 10 mg of hydrocodone as a rescue. Laboratory work was reviewed. No visits with results within 3 Month(s) from this visit. Latest known visit with results is: Hospital Outpatient Visit on 10/11/2019 Component Date Value Ref Range Status TSH 10/11/2019 1.24 0.27 - 4.20 uIU/mL Final C REACTIVE PROTEIN 10/11/2019 5.5* 0.0 - 4.0 mg/L Final ALKALINE PHOSPHATASE 10/11/2019 99 39 - 117 U/L Final TOTAL BILIRUBIN 10/11/2019 0.4 0.0 - 1.2 mg/dL Final DIRECT BILIRUBIN 10/11/2019 <0.2 0 - 0.3 mg/dL Final Bilirubin (Indirect) 10/11/2019 NOT CALCULATED 0 - 1.5 mg/dL Final AST 10/11/2019 19 0 - 37 U/L Final ALT 10/11/2019 19 0 - 40 U/L Final TOTAL PROTEIN 10/11/2019 7.3 6.5 - 8.0 g/dL Final ALBUMIN 10/11/2019 4.1 3.9 - 4.8 g/dL Final GLOBULIN 10/11/2019 3.2 1 - 4.8 g/dL Final A/G Ratio 10/11/2019 1.28 1.00 - 4.80 RATIO Final Assessment & Plan (01/05/2020 10:35 AM EST): Given this patient's ongoing cardiac risk factors I am going to stop the Xeljanz. We may consider using Cimzia. For now she will stay on hydroxychloroquine at 200 mg daily and naproxen sodium at 500 mg daily. She understands the potential interaction between that and Xarelto. No extra-articular manifestations of disease. Prior lab work was reviewed with her. Greater than 50% of this 28-minute visit was spent in [id number] conversation with the patient discussing the natural history and treatment of rheumatoid arthritis as well as risk factors regarding the Xeljanz and going over her history with biologic agents. Hospital Outpatient Visit on 10/11/2019 Component Date Value Ref Range Status TSH 10/11/2019 1.24 0.27 - 4.20 uIU/mL Final C REACTIVE PROTEIN 10/11/2019 5.5* 0.0 - 4.0 mg/L Final ALKALINE PHOSPHATASE 10/11/2019 99 39 - 117 U/L Final TOTAL BILIRUBIN 10/11/2019 0.4 0.0 - 1.2 mg/dL Final DIRECT BILIRUBIN 10/11/2019 <0.2 0 - 0.3 mg/dL Final Bilirubin (Indirect) 10/11/2019 NOT CALCULATED 0 - 1.5 mg/dL Final AST 10/11/2019 19 0 - 37 U/L Final ALT 10/11/2019 19 0 - 40 U/L Final TOTAL PROTEIN 10/11/2019 7.3 6.5 - 8.0 g/dL Final ALBUMIN 10/11/2019 4.1 3.9 - 4.8 g/dL Final GLOBULIN 10/11/2019 3.2 1 - 4.8 g/dL Final A/G Ratio 10/11/2019 1.28 1.00 - 4.80 RATIO Final Assessment & Plan (10/04/2019 10:04 AM EST): Polyarticular severe erosive rheumatoid arthritis. She will remain on Plaquenil and Xeljanz. She is doing well. We talked about potential toxicity of these medications. Laboratory work will be checked today. Previous laboratory work was reviewed. She has not had a flu vaccine yet. She is at risk. She understands the need for vaccination this week. Hospital Outpatient Visit on 09/30/2019 Component Date Value Ref Range Status Ventricular Rate EKG/MIN 09/30/2019 64 BPM Final Atrial Rate 09/30/2019 64 BPM Final ID Interval 09/30/2019 240 ms Final QRS Duration 09/30/2019 80 ms Final QT Interval 09/30/2019 412 ms Final QTC Interval 09/30/2019 425 ms Final P [place] 09/30/2019 53 degrees Final R Wave [place] 09/30/2019 16 degrees Final T Wave [place] 09/30/2019 32 degrees Final Ventricular Rate EKG/MIN 09/30/2019 69 BPM Final Atrial Rate 09/30/2019 68 BPM Final QRS Duration 09/30/2019 74 ms Final QT Interval 09/30/2019 390 ms Final QTC Interval 09/30/2019 417 ms Final R Wave [place] 09/30/2019 9 degrees Final T Wave [place] 09/30/2019 14 degrees Final Hospital Outpatient Visit on 09/29/2019 Component Date Value Ref Range Status WBC 09/29/2019 7.22 3.40 - 11.20 K/uL Final RBC 09/29/2019 4.35 3.80 - 4.80 M/uL Final HGB 09/29/2019 12.6 12.0 - 15.0 g/dL Final HCT 09/29/2019 39.3 36.0 - 46.0 % Final PLT 09/29/2019 355 130 - 400 K/uL Final MCV 09/29/2019 90.3 79.0 - 98.0 fL Final MCH 09/29/2019 29.0 27.0 - 34.8 pg Final MCHC 09/29/2019 32.1 31.5 - 36.0 g/dL Final RDW 09/29/2019 13.5 10.8 - 14.6 % Final MPV 09/29/2019 9.7 9.4 - 12.4 fl Final NRBC 09/29/2019 0.00 0.00 /100 WBCs Final ABSOLUTE NRBC 09/29/2019 0.00 0.00 K/uL Final DIFF METHOD 09/29/2019 Auto Final NEUTS 09/29/2019 46.2 45.30 - 77.70 % Final LYMPHS 09/29/2019 42.4* 12.30 - 39.70 % Final MONOS 09/29/2019 8.9 4.10 - 12.80 % Final EOS 09/29/2019 1.4 0 - 7.2 % Final BASOS 09/29/2019 0.7 0 - 2.80 % Final Granulocytes, immature (%) 09/29/2019 0.4 0.0 - 0.9 % Final ABSOLUTE NEUTS 09/29/2019 3.34 1.40 - 7.70 K/uL Final ABSOLUTE LYMPHS 09/29/2019 3.06 0.60 - 3.20 K/uL Final ABSOLUTE MONOS 09/29/2019 0.64* 0.11 - 0.59 K/uL Final ABSOLUTE EOS 09/29/2019 0.10 0.01 - 0.50 K/uL Final ABSOLUTE BASOS 09/29/2019 0.05 0.00 - 0.08 K/uL Final Granulocytes, immature 09/29/2019 0.03 0.00 - 0.05 K/uL Final SODIUM 09/29/2019 140 133 - 146 mmol/L Final CHLORIDE 09/29/2019 103 96 - 108 mmol/L Final POTASSIUM 09/29/2019 4.6 3.3 - 5.1 mmol/L Final CO2 09/29/2019 25 21 - 35 mmol/L Final BUN 09/29/2019 22* 6 - 19 mg/dL Final CREATININE 09/29/2019 1.00 0.5 - 1.5 mg/dL Final GLUCOSE 09/29/2019 98 70 - 99 mg/dL Final CALCIUM 09/29/2019 9.7 8.4 - 10.3 mg/dL Final EGFR 09/29/2019 62 >59 mL/min/1.73m2 Final If patient is black, multiply result by 1.159. Estimated glomerular filtration rate calculated using the CKD-EPI equation. ANION GAP 09/29/2019 17 10 - 20 mmol/L Final Hospital Outpatient Visit on 07/16/2019 Component Date Value Ref Range Status WBC 07/16/2019 6.76 3.40 - 11.20 K/uL Final RBC 07/16/2019 4.73 3.80 - 4.80 M/uL Final HGB 07/16/2019 13.7 12.0 - 15.0 g/dL Final HCT 07/16/2019 42.1 36.0 - 46.0 % Final PLT 07/16/2019 324 130 - 400 K/uL Final MCV 07/16/2019 89.0 79.0 - 98.0 fL Final MCH 07/16/2019 29.0 27.0 - 34.8 pg Final MCHC 07/16/2019 32.5 31.5 - 36.0 g/dL Final RDW 07/16/2019 13.4 10.8 - 14.6 % Final MPV 07/16/2019 9.7 9.4 - 12.4 fl Final NRBC 07/16/2019 0.00 0.00 /100 WBCs Final ABSOLUTE NRBC 07/16/2019 0.00 0.00 K/uL Final DIFF METHOD 07/16/2019 Auto Final NEUTS 07/16/2019 56.3 45.30 - 77.70 % Final LYMPHS 07/16/2019 32.7 12.30 - 39.70 % Final MONOS 07/16/2019 8.0 4.10 - 12.80 % Final EOS 07/16/2019 2.1 0 - 7.2 % Final BASOS 07/16/2019 0.6 0 - 2.80 % Final Granulocytes, immature (%) 07/16/2019 0.3 0.0 - 0.9 % Final ABSOLUTE NEUTS 07/16/2019 3.81 1.40 - 7.70 K/uL Final ABSOLUTE LYMPHS 07/16/2019 2.21 0.60 - 3.20 K/uL Final ABSOLUTE MONOS 07/16/2019 0.54 0.11 - 0.59 K/uL Final ABSOLUTE EOS 07/16/2019 0.14 0.01 - 0.50 K/uL Final ABSOLUTE BASOS 07/16/2019 0.04 0.00 - 0.08 K/uL Final Granulocytes, immature 07/16/2019 0.02 0.00 - 0.05 K/uL Final SODIUM 07/16/2019 139 133 - 146 mmol/L Final CHLORIDE 07/16/2019 102 96 - 108 mmol/L Final POTASSIUM 07/16/2019 4.5 3.3 - 5.1 mmol/L Final CO2 07/16/2019 27 21 - 35 mmol/L Final BUN 07/16/2019 27* 6 - 19 mg/dL Final CREATININE 07/16/2019 1.30 0.5 - 1.5 mg/dL Final GLUCOSE 07/16/2019 94 70 - 99 mg/dL Final CALCIUM 07/16/2019 10.1 8.4 - 10.3 mg/dL Final EGFR 07/16/2019 45* >59 mL/min/1.73m2 Final If patient is black, multiply result by 1.159. Estimated glomerular filtration rate calculated using the CKD-EPI equation. ANION GAP 07/16/2019 15 10 - 20 mmol/L Final Assessment & Plan (08/23/2019 9:15 AM EDT): Severe polyarticular seropositive disease affecting both large and small joints. While her CRP was moderately elevated 2 months ago I do not feel that she has active enough disease to warrant change in strategy. She will stay on 5 mg of Xeljanz twice daily pending review of lab work. She will avoid NSAIDs. She may increase the Vicodin to 3 times daily as needed at the discretion of her primary care physician given her increased pain. Laboratory tests were reviewed. Hospital Outpatient Visit on 07/16/2019 Component Date Value Ref Range Status WBC 07/16/2019 6.76 3.40 - 11.20 K/uL Final RBC 07/16/2019 4.73 3.80 - 4.80 M/uL Final HGB 07/16/2019 13.7 12.0 - 15.0 g/dL Final HCT 07/16/2019 42.1 36.0 - 46.0 % Final PLT 07/16/2019 324 130 - 400 K/uL Final MCV 07/16/2019 89.0 79.0 - 98.0 fL Final MCH 07/16/2019 29.0 27.0 - 34.8 pg Final MCHC 07/16/2019 32.5 31.5 - 36.0 g/dL Final RDW 07/16/2019 13.4 10.8 - 14.6 % Final MPV 07/16/2019 9.7 9.4 - 12.4 fl Final NRBC 07/16/2019 0.00 0.00 /100 WBCs Final ABSOLUTE NRBC 07/16/2019 0.00 0.00 K/uL Final DIFF METHOD 07/16/2019 Auto Final NEUTS 07/16/2019 56.3 45.30 - 77.70 % Final LYMPHS 07/16/2019 32.7 12.30 - 39.70 % Final MONOS 07/16/2019 8.0 4.10 - 12.80 % Final EOS 07/16/2019 2.1 0 - 7.2 % Final BASOS 07/16/2019 0.6 0 - 2.80 % Final Granulocytes, immature (%) 07/16/2019 0.3 0.0 - 0.9 % Final ABSOLUTE NEUTS 07/16/2019 3.81 1.40 - 7.70 K/uL Final ABSOLUTE LYMPHS 07/16/2019 2.21 0.60 - 3.20 K/uL Final ABSOLUTE MONOS 07/16/2019 0.54 0.11 - 0.59 K/uL Final ABSOLUTE EOS 07/16/2019 0.14 0.01 - 0.50 K/uL Final ABSOLUTE BASOS 07/16/2019 0.04 0.00 - 0.08 K/uL Final Granulocytes, immature 07/16/2019 0.02 0.00 - 0.05 K/uL Final SODIUM 07/16/2019 139 133 - 146 mmol/L Final CHLORIDE 07/16/2019 102 96 - 108 mmol/L Final POTASSIUM 07/16/2019 4.5 3.3 - 5.1 mmol/L Final CO2 07/16/2019 27 21 - 35 mmol/L Final BUN 07/16/2019 27* 6 - 19 mg/dL Final CREATININE 07/16/2019 1.30 0.5 - 1.5 mg/dL Final GLUCOSE 07/16/2019 94 70 - 99 mg/dL Final CALCIUM 07/16/2019 10.1 8.4 - 10.3 mg/dL Final EGFR 07/16/2019 45* >59 mL/min/1.73m2 Final If patient is black, multiply result by 1.159. Estimated glomerular filtration rate calculated using the CKD-EPI equation. ANION GAP 07/16/2019 15 10 - 20 mmol/L Final Hospital Outpatient Visit on 07/01/2019 Component Date Value Ref Range Status Body Surface Area 07/01/2019 2.3 m2 Final Height 07/01/2019 170 cm Final Weight 07/01/2019 124 kg Final Systolic BP 07/01/2019 128 mmHg Final Diastolic BP 07/01/2019 82 mmHg Final Interventricular Septum Thickness 07/01/2019 12 mm Final Left Ventricle Internal Diameter E* 07/01/2019 46 37 - 52 mm Final Left Ventricle Internal Diameter E* 07/01/2019 30 22 - 35 mm Final LVOT VTI REST 07/01/2019 139 mm Final Left Ventricular Outflow Tract Gil* 07/01/2019 0.7 m/s Final Left Ventricular Outflow Tract Deric* 07/01/2019 2 mmHg Final Left Ventricular Posterior Wall Th* 07/01/2019 11 mm Final Ejection Fraction 07/01/2019 57 50 - 75 Percent Final Left Atrium Dimension Anterior-Pos* 07/01/2019 39 15 - 40 mm Final Aortic Valve Peak Velocity 07/01/2019 115.0 cm/s Final Aortic Valve Peak Gradient 07/01/2019 5 mmHg Final Aortic Sinus Diameter 07/01/2019 26 mm Final Ascending Aorta Diameter 07/01/2019 29 mm Final Inferior Vena Cava Diameter 07/01/2019 16 0.0 - 21 mm Final Mitral Valve Deceleration Time 07/01/2019 162 ms Final Mitral Valve E Wave Speed 07/01/2019 79.1 cm/s Final Right Ventricle Basal Diameter 07/01/2019 30.4 25 - 41 mm Final Tricuspid Valve Peak Velocity 07/01/2019 1.8 m/s Final Raw LV EF% 07/01/2019 57 % Final Right Ventricle Peak Systolic Pres* 07/01/2019 16 mmHg Final Right Atrium Pressure Estimated 07/01/2019 3 mmHg Final Right Ventricle to Right Atrium Pr* 07/01/2019 13 mmHg Final Aortic Valve Sinus Index 1 07/01/2019 11 19 - 27 mm Final Ascending Aorta Diameter 07/01/2019 13 mm Final Aortic Sinus Diameter 07/01/2019 11 mm Final Ascending Aorta Index 07/01/2019 13 mm Final Left Atrial Volume 07/01/2019 58 mL Final Left Atrial Volume Index 07/01/2019 25.22 mL/m2 Final Assessment & Plan (05/13/2019 12:41 PM EDT): Continue Xeljanz 5 mg twice daily and hydrocodone as rescue medication mostly for relief of knee and neck pain. 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 Lab work will be checked and previous lab work was reviewed. No toxicity from medication. She understands the need for flu vaccine in the fall. I will see her back in July. No visits with results within 3 Month(s) from this visit. Latest known visit with results is: Hospital Outpatient Visit on 02/09/2019 Component Date Value Ref Range Status C REACTIVE PROTEIN 02/09/2019 9.4* 0.0 - 4.0 mg/L Final WBC 02/09/2019 6.30 3.40 - 11.20 K/uL Final RBC 02/09/2019 4.76 3.80 - 4.80 M/uL Final HGB 02/09/2019 13.2 12.0 - 15.0 g/dL Final HCT 02/09/2019 41.6 36.0 - 46.0 % Final PLT 02/09/2019 318 130 - 400 K/uL Final MCV 02/09/2019 87.4 79.0 - 98.0 fL Final MCH 02/09/2019 27.7 27.0 - 34.8 pg Final MCHC 02/09/2019 31.7 31.5 - 36.0 g/dL Final RDW 02/09/2019 12.6 10.8 - 14.6 % Final MPV 02/09/2019 9.1* 9.4 - 12.4 fl Final NRBC 02/09/2019 0.00 0.00 /100 WBCs Final ABSOLUTE NRBC 02/09/2019 0.00 0.00 K/uL Final DIFF METHOD 02/09/2019 Auto Final NEUTS 02/09/2019 59.6 45.30 - 77.70 % Final LYMPHS 02/09/2019 28.7 12.30 - 39.70 % Final MONOS 02/09/2019 7.1 4.10 - 12.80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 the age of 50, Z-scores (comparison to age, gender, and ethnicity matched reference population) are used: Above expected range for age (Z-score >= 2.0), Within expected range of age (Z-score 1.9 to -1.9), or Below expected range for age (Z-score <= -2.0). - The Bone Health and Osteoporosis Foundation recommends that treatment be considered in men aged more than 50 years and in postmenopausal women with ANY of the following: Prior hip or vertebral fractures; T-score of <= -2.5 at the PA spine or hip; or 10 year fracture probability by FRAX of >= 3% for the hip or >= 20% for major osteoporotic fracture. - The FRAX algorithm (https://www.ronan.ac.uk/FRAX/tool.aspx) is designed to predict 10-year fracture risk in treatment-naive adults between the ages of 40 and 90. It is not intended to be used in those receiving pharmacologic osteoporosis treatment. - Including race/ethnicity in the generation of T- or Z-scores or in the FRAX calculation is complicated, and currently undergoing active review to ensure that we can give patients the best information on their risk of fracture. -Some prior studies may not be compatible with our comparison software. -Click on View Full Report to see subsequent pages with images and prior bone density results. Reviewed By: Aravind Odonnell MD on 12/10/2024 08:42:55 Procedure Note Aravind Odonnell MD - 12/10/2024 Referred By: ANTHONY HAWKINS Indications: Postmenopausal Scanner: datapine A with serial# of [id number] located at [facility] Bone Density Scan (DXA) 12/10/24 Details of prior DXA scans are available by clicking View Image BMD T- Z- Skeletal Site gm/cm2 score score BMD Change Since Prior Scan ------ ----- PA Spine (L1 L3 L4) 1.194 1.30 3.00 N/A Total Hip (Left) 0.856 -0.70 0.50 N/A Femoral Neck (Left) 0.737 -1.00 0.50 N/A Total Hip (Right) 0.830 -0.90 0.30 N/A Femoral Neck (Right) 0.739 -1.00 0.50 N/A ------ ----- * Denotes significant change when >= 0.022 g/cm2 for the spine, 0.027g/cm2 for the total hip, 0.029 g/cm2 for the femoral neck. Interpretation: Normal bone mineral density. Technical Quality: The PA Spine scan was of marginal quality because of sclerosis or fracture (which increase BMD). FRAX: A FRAX(r) score is not provided because the patient has normal bone density. Additional Information: -World Health Organization criteria classify adults based on lowestT-score at PA spine, hip or forearm: Normal (T-score >= -1.0), Osteopenia (T-score between -1 and -2.5), or Osteoporosis (T-score <= -2.5). At [facility], T-scores are compared to peak bone density of a young white gender matched reference population. - For premenopausal women and men under the age of 50, Z-scores(comparison to age, gender, and ethnicity matched reference population) are used:Above expected range for age (Z-score >= 2.0), Within expected range of age (Z-score 1.9 to -1.9), or Below expected range for age (Z-score <= -2.0). - The Bone Health and Osteoporosis Foundation recommends that treatment be considered in men aged more than 50 years and in postmenopausal women with ANY of the following: Prior hip or vertebral fractures; T-score of <= -2.5 at the PA spine or hip; or 10 year fracture probability by FRAX of >= 3%for the hip or >= 20% for major osteoporotic fracture. - The FRAX algorithm (https://www.ronan.ac.uk/FRAX/tool.aspx) is designed to predict 10-year fracture risk in treatment-naive adultsbetween the ages of 40 and 90. It is not intended to be used in those receiving pharmacologic osteoporosis treatment. - Including race/ethnicity in the generation of T- or Z-scores or in the FRAX calculation is complicated, and currently undergoing active review to ensure that we can give patients the best information on their risk of fracture. -Some prior studies may not be compatible with our comparison software. -Click on View Full Report to see subsequent pages with images and prior bone density results. Reviewed By: Aravind Odonnell MD on 12/10/2024 08:42:55 IMPRESSION: Interpretation: Normal bone mineral density. us Anthony Hawkins MD, MPH IMG BD BONE DENSITY DEXA Final Result * (ABNORMAL) Lipid panel (01/03/2023 8:04 AM EST) HDL 57 mg/dL [facility] Comment: Interpretation <40 mg/dL: Low HDL cholesterol (major risk factor for CHD) Greater than or equal to 60 mg/dL: High HDL cholesterol ( negative risk factor for CHD) HDL - cholesterol is affected by a number of factors, e.g. smoking, excerise, hormones, sex and age. CHOLESTEROL 168 0 - 240 mg/dL [facility] TRIGLYCERIDES 156 30 - 160 mg/dL [facility] LDL 80 50 - 129 mg/dL [facility] Comment: LDL levels in terms of risk for coronary heart disease: <100 mg/dL: Optimal 100-129 mg/dL: Near or above optimal 130-159 mg/dL: Borderline high 160-189 mg/dL: High >190 mg/dL: Very High CARDIAC RISK RATIO 2.9(L) 3.3 - 4.4 C [facility] Blood 01/03/2023 8:04 AM EST 01/03/2023 8:10 AM EST us Felix Harvey MD LAB BLOOD ORDERABLES Final Result [address] [address] * ENDOSCOPY, COLON (05/04/2019 11:42 AM EDT) Narrative Transcriptions Burton Morales MD - 05/04/2019 11:42 AM EDT Patient Name: Bernarda Gentile Attending MD:: BURTON MORALES MD Procedure Date: 05/04/2019 11:42 AM Date of : 1960 Age: 58 Admit Type: Outpatient Gender: Female Room: [place] [address] Referring MD: ANGELICA GALE DO Exam Type: Colonoscopy Indications: Screening for colorectal malignant neoplasm, Screeningin patient at increased risk: Colorectal cancer in sister before age 60 Medications: Monitored Anesthesia Care Procedure: Informed consent was obtained from the patient after discussion of the indications, limitations,alternatives, benefits, and risks of the procedure. Risksspecifically discussed include but are not limited to medication reactions, missed lesions, bleeding, perforation, orthe need for emergent surgery. Throughout the procedure, the patient's blood pressure, pulse, end-tidal CO2, and oxygen saturations were monitored continuously. The Olympus adult variable colonoscope [id number] #5 was introduced through the anus and advanced to the cecum, identified by the appendiceal orifice. The colonoscopywas performed without difficulty. The patient tolerated the procedure well. The quality of the bowel preparationwas good. Complications: No immediate complications. Estimated blood loss:None. Findings: The perianal and digital rectal examinations werenormal. A 3 mm polyp was found in the rectum. The polyp was sessile. The polyp was removed with a cold biopsyforceps. Resection and retrieval were complete. The recto-sigmoid colon, sigmoid colon, descendingcolon, splenic flexure, transverse colon, hepatic flexure, ascending colon, cecum, appendiceal orifice, ileocecal valve, rectum (on retroflexion) and ascending colon (on retroflexion) appeared normal. Impression: - One 3 mm polyp in the rectum, removed with a coldbiopsy forceps. Resected and retrieved. - The recto-sigmoid colon, sigmoid colon, descending colon, splenic flexure, transverse colon, hepaticflexure, ascending colon, cecum, appendiceal orifice, ileocecal valve and rectum are normal. Recommendation: - Discharge patient to home. - Resume previous diet. - Continue present medications. - Await pathology results. - Repeat colonoscopy in 5 years for surveillance. - I will send you pathology results by letter. If youdo not get results in 3 weeks telephone my office. BURTON MORALES MD 05/04/2019 12:40:30 PM This report has been signed electronically. Number of Addenda: 0 Note Initiated On: 05/04/2019 11:42 AM Procedure Code(s): --- Professional --- 54173, Colonoscopy, flexible; with biopsy, single or multiple --- Technical --- 55920, Colonoscopy, flexible; with biopsy, single or multiple Diagnosis Code(s): --- Professional --- Z12.11, Encounter for screening for malignant neoplasm of colon Z80.0, Family history of malignant neoplasm of digestive organs K62.1, Rectal polyp --- Technical --- Z12.11, Encounter for screening for malignant neoplasm of colon Z80.0, Family history of malignant neoplasm of digestive organs K62.1, Rectal polyp CPT copyright 2016 [employer]. All rights reserved. The codes documented in this report are preliminary and upon unix analyst reviewmay be revised to meet current compliance requirements. [address] [place] [address] us Angelica Gale DO GI PROCEDURE ORDERABLES Final Re sult * Hepatitis C antibody, qualitative (11/25/2017 12:52 PM EST) HCV Negative Negative [facility] Comment: This is a screening test and should be confirmed with molecular testing Blood 11/25/2017 12:5 2 PM EST 11/25/2017 12:58 PM EST us Kilo Horowitz MD LAB BLOOD ORDERABLES Final Result [facility] [address] [place] [address] from Last 3 Months or Most Recently Relevant to Health Maintenance Insurance MEDICARE PART A & B [facility] MEDICARE PART A & [place] [address] [place] [address] MEDICARE PART A & B [facility] MEDICARE PART A & B [facility] MEDICARE PART A & B [facility] MEDICARE PART A & B [facility] MEDIC[facility] PART A & B [facility] Care Teams Stone Splitter Relationship Specialty Start Date End Date Angelica Gale DO [address] [place] [address] [email or web address] PCP - General Internal Medicine 12/10/24 Kilo Horowitz MD [email or web address] Historical LMR Provider 09/06/17 Danielle Wright FNP [address] [place] [address] [email or web address] Nurse Practitioner Medical Oncology 09/07/21 Ashley Cabello MD [address] [place] [address] [address] [place] [address] [email or web address] General Surgery 09/11/21 Jyoti Stone MD [address] [place] [address] [email or web address] Oncology 01/01/22 Adrianne Mehta MD [address] [place] [address] Primary Oncologist Medical Oncology 06/13/21 Angelica Gale DO [address] [place] [address] [email or web address] Insurance Assigned Provider 02/20/25 Additional Source Comments The information contained in this document represents components of the legal health record. It is not the complete legal health record.[facility]
--- OUTSIDE RECORDS SUMMARY | 2025-08-17 18:48 | XMS_ITS | Encounter Summary ---
Author Organization [facility] Address [address] [place] [address] [address] [place] [address] Phone Care Team Providers Care Conductor Pullman Name Role Phone FrandyLuciano quinn A DO Unavailable Kilo Horowitz MD Unavailable [email or web address] Adrianne Mehta MD Unavailable [phone] Bhavana Espinoza NP Unavailable Pcp, Unknown Primary Care Provider Unavailabl e Bigda, Luciano A DO Primary Care Provider [phone] Bigda, Luciano A DO Primary Care Provider [phone] Bigda, Luciano A DO Unavailable Adrianne Mehta MD Unavailable [phone] Danielle Wright MILLWORK ESTIMATOR Unavailable [phone] Ashley Cabello MD Unavailable Jyoti Stone MD Unavailable [phone] Adrianne Mehta MD Unavailable Bigda, Luciano A DO Unavailable Bigda, Luciano A DO Primary Care Provider [phone] Bigda, Luciano A DO Unavailable Encounter Details Date Type Department Care Team (Late st Contact Info) Description 09/06/2017 Ancillary Orders [facility] [address] [place] [address] Adrianne Mehta MD [address] [place] [address] Visit for screening mammogram Social History Tobacco Use Types Packs/Day Years Used Date Smoking Tobacco: Never Assessed Comments Unknown Sex and Gender Information Value Date Recorded Sex Assigned at Not on file Legal Sex Female 9:48 PM EDT Gender Identity Not on file Sexual Orientation Not on file documented as of this encounter Plan of Treatment Upcoming Encounters Date Type Department Care Team (Late st Contact Info) Description 09/14/2025 2:00 PM EDT Office Visit [facility] at [address] [address] Adrianne Mehta MD [address] [place] [address] 09/28/2025 8:00 AM EST Office Visit [facility] [address] [place] [address] 3rd Floor, [address] [place] [address] Felix Harvey MD [address] [place] [address], [address] [place] [address] 10/14/2025 8:40 AM EST Office Visit [facility] Rheumatology [address] [place] [address] Katerine Velazquez MD, MPH [address] [place] [address], [address] [place] [address] documented as of this encounter Results * BI MAMMOGRAM SCREENING WITH TOMOSYNTHESIS WITH CAD (LEFT) (12/08/2017 3:50 PM EST) Anatomical Region Laterality Modality Breast Left, Breast Bilateral Left Ma mmography 12/08/2017 8:51 PM EST Impressions 12/08/2017 8:53 PM EST No findings worrisome for malignancy. Annual unilateral screening is recommended. BI-RADS CATEGORY: 1 - Negative. DENSITY: There are scattered fibroglandular densities. POS [id number] Narrative 12/08/2017 8:53 PM EST COMPARISON: 04/10/2011 through 12/06/2016. Digital 3-D tomosynthesis with 2-D reconstructions in the CC and MLO view of the breast was obtained. Computer-aided detection system also utilized. The overall appearance is unchanged. No new mass, asymmetry, architectural distortion or worrisome calcifications have become apparent on this side. Procedure Note Torito Hernandez MD - 12/08/2017 COMPARISON: 04/10/2011 through 12/06/2016. Digital 3-D tomosynthesis with 2-D reconstructions in the CC and MLO viewof the breast was obtained. Computer-aided detection system alsoutilized. The overall appearance is unchanged. No new mass, asymmetry, architectural distortion or worrisomecalcifications have become apparent on this side. IMPRESSION: No findings worrisome for malignancy. Annual unilateral screening isrecommended. BI-RADS CATEGORY: 1 - Negative. DENSITY: There are scattered fibroglandular densities. POS CDHMAM2 Adrianne Mehta MD [facility] Final Result documented in this encounter Visit Diagnoses Diagnosis Visit for screening mammogram Visit for screening mammogram documented in this encounter Care Teams Conductor Pullman Relationship Specialty Start Date End Date Pcp, Unknown PCP - General 09/06/17 10/15/17 Luciano Yuen DO PCP - General 10/16/17 03/17/19 Luciano Yuen DO PCP - General Internal Medicine 03/18/19 12/09/24 Alpa Luciano DO Davin [address] [place] [address] [email or web address] PCP - General Internal Medicine 12/10/24 Luciano Yuen DO [address] [place] [address] [email or web address] Historical LMR Provider 09/06/17 12/08/17 Kilo Horowitz MD [email or web address] Historical LMR Provider 09/06/17 Adrianne Mehta MD [address] [place] [email or web address] Historical LMR Provider 09/06/17 06/12/21 Bhavana Espinoza NP [address] [place] [address] Historical LMR Provider 09/06/17 2 Luciano Yuen DO [address] [place] [address] [email or web address] Insurance Assigned Provider 03/20/19 06/12/21 Adrianne Mehta MD [address] [place] [address] [email or web address] Primary Oncologist Medical Oncology 06/13/21 06/11/22 Danielle Wright, MILLWORK ESTIMATOR [address] [place] [address] Nurse Practitioner Medical Oncology 09/07/21 Ashley Cabello MD [address] [place] [address] 8 [place] [address] General Surgery 09/11/21 Jyoti Stone MD [address] [place] [address] [email or web address] Oncology 01/01/22 Adrianne Mehta MD [address] [place] [address] Primary Oncologist Medical Oncology 06/13/21 Luciano Yuen DO [address] [place] [address] Insurance Assigned Provider 02/21/24 11/22/24 Luciano Yuen DO [address] [place] [address] Insurance Assigned Provider 02/20/25 documented as of this encounter Additional Source Comments The information contained in this document represents components of the legal health record. It is not the complete legal health record.[facility]
--- OUTSIDE RECORDS SUMMARY | 2025-08-17 18:48 | XMS_ITS | Data Portability ---
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) MDM MODERATE MUST MEET 2 OUT OF 3 ELEMENTS: PROBLEMS, DATA OR RISK ELEMENT 1: PROBLEMS ADDRESSED 1 OR MORE CHRONIC ILLNESS WITH EXACERBATION OR 2 OR MORE STABLE CHRONIC ILLNESSES OR 1 UNDIAGNOSED NEW PROBLEM OR 1 ACUTE ILLNESS W/SYMPTOMS OR 1 ACUTE COMPLICATED INJURY ELEMENT 2: DATA MUST MEET 1 OF 3 CATEGORIES CATEGORY 1: REVIEW OF PRIOR EXTERNAL NOTES, REVIEW OF RESULTS, ORDERING OF EACH TEST, ASSESSMENT REQUIRING INDEPENDENT HISTORIAN OR CATEGORY 2: INDEPENDENT INTERPRETATION OF TESTS BY ANOTHER PHYSICIAN OR SPECIALIST OR CATEGORY 3: DISCUSSION OF MGT OR TEST INTERPRETATION W/EXTERNAL PHYSICIAN OR SPECIALIST ELEMENT 3: RISK RISK OF COMPLICATIONS AND/OR MORBIDITY OR MORTALITY OF PATIENT MANAGEMENT PROVIDER MUST THOROUGHLY DOCUMENT EACH ELEMENT THAT IS COVERED Not available 07/11/2023 11:39:44 01/26/2024 01/26/2024 Patient agreed and verbally consents to this audio and video Telehealth appt via a secure platform [email or web address] Not available 01/26/2024 11:58:24 10/22/2024 10/22/2024 [id number] [place] [id number] (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) MDM HIGH MUST MEET 2 OUT OF 3 ELEMENTS: PROBLEMS, DATA OR RISK ELEMENT 1: PROBLEMS 1 OR MORE CHRONIC ILLNESS W/SEVERE EXACERBATION, PROGRESSION MAY REQUIRE HOSPITAL LEVEL CARE OR 1 ACUTE OR CHRONIC ILLNESS OR INJURY THAT POSES A THREAT TO LIFE OR BODILY FUNCTION ELEMENT 2: DATA: MUST MEET 2 OF 3 CATEGORIES CATEGORY 1 REVIEW OF PRIOR EXTERNAL NOTES REVIEW OF THE RESULTS ORDERING OF EACH TEST ASSESSMENT REQUIRING INDEPENDENT HISTORIAN(S) CATEGORY 2: INDEPENDENT INTERPRETATION OF TESTS BY ANOTHER PROVIDER/SPECIALI ST CATEGORY 3: DISCUSSION OF MGT OR TEST INTERPRETATION W/EXTERNAL PHYSICIAN/SPECIAL IST ELEMENT 3: RISK HIGH RISK OF MORBIDITY FROM ADDITIONAL DIAGNOSTIC TESTING OR TREATMENT PROVIDER MUST THOROUGHLY DOCUMENT EACH ELEMENT THAT IS COVERED Not available 10/22/2024 10:19:32 08/17/2025 08/17/2025 Patient presente d to office today for their Medicare Annual Wellness Visit. note she was spoken t about need for vaccine updates but pt is not interested . despite my warnings Education was provided on healthy nutrition, including a diet rich in fruits and vegetables, minimizing simple carbohydrates, salt, and saturated fats. Encouraged regular cardiovascular exercise such as walking at least 30 minutes daily, 5 times per week. Emphasized preventive health measures and educated pt on fall prevention and community-based lifestyle interventions to help reduce health risks and promote healthy living. Not available 08/17/2025 10:56:00 Plan of Treatment Reminders Order Date Submit Date Provider Last Modified By Organization Details Last Modified Time Details Appointments MEDICARE ANNUAL WELLNESS 2024 10:30A M DR GALE Not available Not available Not available Lab lipid panel, blood 2024 025 [facility], [address] [place] [address], [id number], 08/17/2025 10:58:29 CBC w/ auto diff 2024 025 [facility], [address] [place] [address], [place], [address], 08/17/2025 10:58:29 CMP, serum or plasma 2024 025 [facility], [address] [place] [address], [id number], 08/17/2025 10:58:29 vitamin D, 25-hydrox y, total, serum 2024 025 [facility], [address] [place] [address], [id number], 08/17/2025 10:59:00 lipid panel, blood 2022 023 [facility], [address] [place] [address], [address], 07/11/2023 11:45:25 CMP, serum or plasma 2022 023 [facility], [address] [place] [address], [address], 09/11/2023 17:11:06 Referral hand surgeon referral 2023 024 jose Andrea MD, [address] [place] [address], [id number], 11/02/2024 08:46:55 Procedures None recorded. Surgeries None recorded. Imaging XR, shoulder, 2 or more view 2023 024 [facility] Not available 01/30/2024 11:19:00 Medication Orders pramipexo le 0.5 mg tablet 2024 025 [facility], [address] [place], [address], 04/25/2025 10:01:19 Medrol (Omar) 4 mg tablets in a dose pack 2024 025 [place] [facility], [address] [place], [address], 08/17/2025 10:17:27 amoxicill in 400 mg/5 mL oral suspensio n 2024 025 [place] [facility], [address] [place], [address], 08/17/2025 10:17:12 tizanidin e 4 mg capsule 2023 024 [facility], [address] [place], [address], 08/17/2025 10:17:45 hydrocodo ne 10 mg-acetam inophen 325 mg tablet 2023 024 [facility], [address] [place], [address], 01/26/2024 12:01:24 Patient TargetsNo targets recorded. Patient Instructions Encounter Date Encounter Id Patient Instructions Last Modified By Organization Details Last Modified Time 10/22/2024 [id number] carpal tunnel syndrome: care instructions Not available 10/22/2024 10:18:03 carpal tunnel syndrome: exercises Not available 10/22/2024 10:18:04 pulse oximetry* Not available 10/22/2024 10:18:04 atrial fibrillation: care instructions Not available 10/22/2024 10:18:04 08/17/2025 [id number] pulse oximetry* [facility] Not available 08/17/2025 12:31:01 advance care planning: care instructions Not available 08/17/2025 10:57:02 Discussed and explained advance directives such as standard forms to the . Face to face discussion lasted for a duration of ___ minutes. [email or web address] Not available 08/01/2025 12:12:30 Reason for Referral Hand Surgeon Referral for Ca rpal tunnel syndrome of left wrist Referring Physician: Luciano Gale, Internal Medicine, Encounter Date: 10/22/2024 Results Created Date Observation Date Name Description Value Unit Range Abnormal Flag Note LastModifiedBy Organization Detail LastModifiedTime 10/22/20 24 10/22/2024 pulse oxime try* Result 98% Not Available [facility] [address] [facility] [address], [place], [address], 10/20/2024 16:47:56 08/17/20 25 08/17/2025 pulse oxime try* Result 96 Not Available [facility] [address] [facility] [address], [place], [address], 08/01/2025 12:15:45 01/30/20 24 01/26/2024 XR, shoul tutu, 2 or more view No observ ation record ed. [facility] [address] [place] [address], [address], 02/02/2024 10:23:09 03/16/20 24 03/14/2024 MRI, shoul tutu, w/o contr ast No observ ation record ed. [address], [address], 03/17/2024 10:23:46 04/12/20 25 04/08/2025 MAMMO , scree orsana, digit al, bilat eral No observ ation record ed. [facility] - Callback Orders Only [address] [place] [address], [id number], 04/12/2025 16:11:12 Result Notes None recorded. 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 732014195 Active 2017 Kim contreras [facility] 8 09:23:09 Cervical spondylo sis 392990634 Active 2017 M47.812 Kim contreras [facility] 8 09:24:53 Sleep disorder 39703980 [facility] 2017 [facility] 09:24[facility]06 Hyperten sive disorder 51723006 [facility] 2017 [facility] 09:24:19 Osteoart hritis of knee 064283156 Active 2017 Luciano Gale, DO [address] [place] [address], [address], [facility] 8 16:03:19 Degenera tion of cervical interver tebral disc 88562158 Active 2017 Luciano Gale, DO [address] [place] [address], [address], [facility] 8 12:23:48 Depressi ve disorder 60981878 Active 2018 Luciano Gale DO [address] [place] [address], [address], [facility] 9 10:07:00 Edema of lower extremit y 567067094 Active 2018 Luciano Gale DO [address] [place] [address], [address], [facility] 9 12:10:52 Atrial fibrilla tion 06631520 Active 2018 Luciano Gale DO [address] [place] [address], [address], [facility] 9 16:23:16 Follicul itis 12536739 Active 2018 Lcuiano Gale DO [address] [place] [address], [address], [facility] 9 11:30:18 Nummular eczema 78778468 Active 2020 Luciano Gale DO [address] [place] [address], [address], [facility] 1 11:47:46 Mass of soft tissue of left upper limb 42211612424 600020 Active 2021 KADY JULIAN [address] [place], [address], [facility] 2 11:21:11 Pain of shoulder region 37723208 Active 2021 KADY JULIAN [address] [place], [address], [facility] 2 11:23:48 Pain of shoulder region 33703645 Active 2021 KADY JULIAN [address] [place], [address], [facility] 2 11:23:54 Longitud inal split nail 69191292 Active 2021 KADY UJLIAN [address] [place], [address], [facility] 2 11:24:59 Pain of left shoulder joint 23331480103 619118 Active 2021 KADY JULIAN [address] [place], [address], [facility] 2 10:12:11 Subscapu fany tendinit is 215564495 Active 2021 KADY JULIAN [address] [place], [address], [facility] 2 13:58:19 Restless legs syndrome 44812271 Active 2022 KADY JULIAN [address] [place], [address], [facility] 5 09:59:43 Chronic kidney disease stage 2 132832363 Active 2022 KADY JULIAN [address] [place], [address], [facility] 3 09:42:38 Pain of right shoulder joint 83497429526 979255 Active 2023 KADY JULIAN [address] [facility], [address], [facility] 4 11:58:13 Glenoid labrum tear 382750520 Active 2023 KADY JULIAN [address] [place] [address], [address], [facility] 4 10:24:35 Carpal tunnel syndrome of left wrist 48507639367 9102 Active 2023 Luciano Gale DO [address] [place] [address], [address], [facility] 4 10:13:04 Lumbago with sciatica 243111458 Active 2023 Luciano Gale DO [address] [place] [address], [address], [facility] 4 10:16:31 Acute pharyngi tis 969270984 Active 2024 KADY JULIAN [address] [place] [address], [address], [facility] 5 09:57:29 Acute cough Active 2024 KADY JULIAN [address] [place] [address], [address], [facility] 5 09:57:40 Problem Notes None recorded. Medical Equipment None Reported. Allergies Allergen ID Allergen Name Allergen Category Reaction Reaction Severity Criticality Documentation Date Start Date Code Code System Note Provider Name and Address Organization Details Recorded Time 2989 oxycodone medicatio n itching Not available Not available 03/09/2019 7804 [facility] 9 11:44:44 Medications Name Sig Start Date Stop Date Status Note LastModified by Organization Details LastModified Time cyclobenz aprine 10 mg tablet Take 1 tablet 3 times a day by oral route as needed. 09/10 completed Not Available Not Available Not Available desonide 0.05 % topical cream APPLY SPARINGL Y AND RUB GENTLY INTO THE AFFECTED AREA(S) BY TOPICAL ROUTE 2 TIMES PER DAY 07/03 completed Not Available Not Available Not Available silver sulfadiaz ine 1 % topical cream APPLY A 1/16 INCH (1.5 MM) THICK LAYER TO ENTIRE BURN AREA BY TOPICAL ROUTE 2 TIMES A DAY. 08/17 completed Not Available Not Available Not Available clotrimaz ole-betam ethasone 1-0.5 % topical cream as needed 07/03 completed Not Available Not Available Not Available clonidine HCl 0.1 mg tablet TAKE ONE TABLET BY MOUTH TWICE A DAY active Not Available Not Available No t Available prednison e 10 mg tablet 03/25 completed Not Available Not Available Not Available citalopra m 40 mg tablet 03/25 completed Not Available Not Available Not Available diltiazem CD 180 mg capsule,e xtended release 24 hr TAKE TWO CAPSULES BY MOUTH EVERY DAY 07/03 completed Not Available Not Available Not Available tizanidin e 4 mg tablet 08/17 completed Not Available Not Available Not Available citalopra m 10 mg tablet 03/25 completed Not Available Not Available Not Available hydrocodo ne 5 mg-acetam inophen 325 mg tablet Take 2 tablets every 8 hours by oral route as needed. 06/07 completed Not Available Not Available Not Available diltiazem CD 240 mg capsule,e xtended release 24 hr Take 1 capsule every day by oral route for 30 days. 08/10 completed Not Available Not Available Not Available meloxicam 15 mg tablet 03/25 completed Not Available Not Available Not Available clonazepa m 0.5 mg tablet TAKE ONE TABLET BY MOUTH DAILY AT BEDTIME active Not Available Not Available No t Available prednison e 5 mg tablet TAKE ONE TABLET BY MOUTH EVERY DAY WITH BREAKFAS T 01/22 completed Not Available Not Available Not Available verapamil ER (SR) 180 mg tablet,ex tended release Take one tablet twice a day. 11/20 completed Not Available Not Available Not Available clobetaso l 0.05 % topical cream APPLY A THIN LAYER TO THE AFFECTED AREA(S) TOPICALL Y TWO TIMES A DAY 07/11 completed Not Available Not Available Not Available sulfameth oxazole 800 mg-trimet hoprim 160 mg tablet TAKE ONE TABLET BY MOUTH EVERY 12 HOURS FOR 7 DAYS 04/17 completed Not Available Not Available Not Available hydrocodo ne 10 mg-acetam inophen 325 mg tablet TAKE ONE TABLET BY MOUTH THREE TIMES A DAY. 2024 active the patient s UTD Not Available Not Available Not Available aspirin 81 mg tablet,de layed release Take 1 tablet every day by oral route. active Not Available Not Available No t Available tramadol 50 mg tablet Take 2 tablets every 6 hours by oral route for 7 days. 11/24 completed Not Available Not Available Not Available triamtere ne 37.5 mg-hydroc hlorothia zide 25 mg capsule 1 PO QD 07/03 completed Not Available Not Available Not Available pramipexo le 0.5 mg tablet TAKE ONE TABLET BY MOUTH EVERY DAY AT BEDTIME active Not Available Not Available No t Available oxycodone -acetamin ophen 5 mg-325 mg tablet 03/25 completed Not Available Not Available Not Available citalopra m 20 mg tablet 03/25 completed Not Available Not Available Not Available Vitamin C 1,000 mg tablet Take 1 tablet every day by oral route. active Not Available Not Available No t Available lorazepam 0.5 mg tablet TAKE ONE TABLET BY MOUTH THREE TIMES A DAY NEEDED FOR 7 DAYS 04/25 completed Not Available Not Available Not Available methocarb yudi 750 mg tablet Take 1 tablet every day by oral route at bedtime for 30 days. 06/25 completed Not Available Not Available Not Available methotrex ate sodium 2.5 mg tablet TAKE 5 TABLETS BY MOUTH 12.5MG TOTAL) ONCE A WEEK active Not Available Not Available No t Available baclofen 10 mg tablet Take 1 tablet 3 times a day by oral route as needed for 30 days. 10/29 completed Not Available Not Available Not Available hydrocodo ne 7.5 mg-acetam inophen 325 mg tablet TAKE ONE TABLET BY MOUTH EVERY 6 HOURS WITH MEALS FOR 7 DAYS 09/15 completed Not Available Not Available Not Available prednison e 2.5 mg tablet TAKE TWO TABLETS BY MOUTH EVERY DAY 04/17 completed Not Available Not Available Not Available cephalexi n 500 mg capsule Take 1 capsule 3 times a day by oral route for 10 days. 07/03 completed Not Available Not Available Not Available ropinirol e 0.5 mg tablet TAKE ONE TABLET BY MOUTH AT BEDTIME 04/25 completed Not Available Not Available Not Available clotrimaz ole-betam ethasone 1 %-0.05 % topical cream APPLY TO THE AFFECTED & SURROUND ING AREAS OF SKIN 2 TIMES A DAY (IN THE MORNING & EVENING) FOR 3 WEEKS. 01/22 completed Not Available Not Available Not Available lisinopri l 10 mg tablet TAKE 1 TABLET BY MOUTH EVERY DAY. active Not Available Not Available No t Available indometha nayan 50 mg capsule TAKE ONE CAPSULE BY MOUTH TWICE A DAY WITH MEALS NEEDED FOR PAIN active Not Available Not Available No t Available pramipexo le 0.25 mg tablet 03/25 completed Not Available Not Available Not Available omeprazol e 20 mg capsule,d elayed release Take as needed. 11/24 completed Not Available Not Available Not Available folic acid 1 mg tablet TAKE 1 TABLET BY MOUTH DAILY; EXCEPT THE DAY YOU TAKE YOUR METHOTRE XATE. active Not Available Not Available No t Available zinc 50 mg tablet Take 1 tablet every day by oral route. active Not Available Not Available No t Available lisinopri l 5 mg tablet Take one tablet by mouth every day with 10mg tablet for total of 15mg every day. 11/24 completed Not Available Not Available Not Available amoxicill in 400 mg/5 mL oral suspensio n TAKE 6.25 ML BY MOUTH EVERY 8 HOURS FOR 7 DAYS DISCARD BALANCE AFTER 7 DAYS)). 08/17 completed Not Available Not Available Not Available zolpidem 5 mg tablet 08/03 completed Not Available Not Available Not Available mirtazapi ne 15 mg tablet Take 1 tablet every day by oral route at bedtime for 30 days. 08/10 completed Not Available Not Available Not Available metoprolo l succinate ER 25 mg tablet,ex tended release 24 hr TAKE ONE TABLET BY MOUTH EVERY DAY active Not Available Not Available No t Available hydroxych loroquine 200 mg tablet TAKE ONE TABLET BY MOUTH TWICE A DAY active Not Available Not Available No t Available oxycodone -acetamin ophen 7.5 mg-325 mg tablet 03/25 completed Not Available Not Available Not Available methylpre dnisolone 4 mg tablets in a dose pack TAKE SIX TABLETS FOR 1 DAY, THEN FIVE TABLETS FOR 1 DAY, THEN FOUR TABLETS FOR 1 DAY,THEN THREE TABLETS FOR 1 DAY, THEN TWO TABLETS FOR 1 DA 08/17 completed Not Available Not Available Not Available Vitamin D2 1,250 mcg (50,000 unit) capsule TAKE 1 CAPSULE BY MOUTH ONCE A WEEK active Not Available Not Available No t Available etodolac 500 mg tablet Take one tablet twice a day. 11/24 completed Not Available Not Available Not Available naproxen 500 mg tablet TAKE ONE TABLET BY MOUTH TWICE A DAY WITH MEALS NEEDED FOR JOINT PAIN. 08/17 completed Not Available Not Available Not Available rosuvasta tin 20 mg tablet TAKE ONE TABLET BY MOUTH EVERY DAY active Not Available Not Available No t Available metoprolo l tartrate 25 mg tablet 09/10 completed Not Available Not Available Not Available duloxetin e 20 mg capsule,d elayed release TAKE ONE CAPSULE BY MOUTH AT BEDTIME 01/22 completed Not Available Not Available Not Available duloxetin e 30 mg capsule,d elayed release TAKE 1 CAPSULE BY MOUTH DAILY 10/22 completed Not Available Not Available Not Available duloxetin e 60 mg capsule,d elayed release TAKE ONE CAPSULE BY MOUTH EVERY DAY active Not Available Not Available No t Available tizanidin e 4 mg capsule Take 1 capsule every 6 hours by oral route as needed for 10 days. 08/17 completed Not Available Not Available Not Available [facility] 100,000 unit/gram topical powder APPLY TO THE AFFECTED AREA TOPICALL Y 2 TIMES A DAY. 08/17 completed Not Available Not Available Not Available multivita min take 1 tablet by mouth once a day 10/29 completed Not Available Not Available Not Available Humira Pen 40 mg/0.8 mL subcutane ous kit One pen twice a month. 11/24 completed Not Available Not Available Not Available Enbrel SureClick 50 mg/mL (1 mL) subcutane ous pen injector 03/25 completed Not Available Not Available Not Available oxycodone 10 mg tablet Take 1 tablet every 4 hours by oral route for 7 days. 08/03 completed Not Available Not Available Not Available bromelain s 100 mg chewable tablet Take 1 tablet every day by oral route. 04/17 completed Not Available Not Available Not Available Xarelto 20 mg tablet Take 1 tablet every day by oral route for 60 days. 07/03 completed Not Available Not Available Not Available Xeljanz 5 mg tablet Take 2 tablets twice a day by oral route for 30 days. 07/03 completed Not Available Not Available Not Available Afluria Quad 60 mcg (15 mcg x 4)/0.5 mL IM suspensio n 11/24 completed Not Available Not Available Not Available Fluzone Quad (PF) 60 mcg (15 mcg x 4)/0.5 mL IM syringe 07/03 completed Not Available Not Available Not Available Vitals Date Recorded Body height Body mass index (BMI) Body weight Heart rate Oxygen saturation Oxygen saturation in Arterial blood by Pulse oximetry Systolic And Diastolic Provider Name and Address Organization Details Last Updated DateTime 3 168.28 cm 46 kg/m2 404085. 01 g 88 /min 97 % 97 % 130/80 mm[Hg] Catrina Gomez [facility] 3 11:13:46 Date Recorded Body height Body mass index (BMI) Body weight Heart rate Oxygen saturation Oxygen saturation in Arterial blood by Pulse oximetry Systolic And Diastolic Provider Name and Address Organization Details Last Updated DateTime 5 168.91 cm 45.8 kg/m2 639910. 6 g 65 /min 96 % 96 % 144/92 mm[Hg] Salma Love [facility] 5 10:33:25 Date Recorded Body height Body mass index (BMI) Body weight Heart rate Oxygen saturation Oxygen saturation in Arterial blood by Pulse oximetry Systolic And Diastolic Provider Name and Address Organization Details Last Updated DateTime 4 168.91 cm 45.8 kg/m2 797671. 6 g 70 /min 98 % 98 % 138/86 mm[Hg] Luciano Gale, DO [address] [place], [address] [place] [address] Internal Medicine 4 09:55:25 Social History Question Answer Notes LastModified by Organizat ion Details LastModified Time Tobacco Smoking Status Former Smoker Not Available [facility] 09/19/2020 03:36:23 What Was The Date Of Your Most Recent Tobacco Screening? 08/17/2025 [email or web address] Information not available 08/17/2025 Sex: Unknown Functional Status Question Answer Note LastModified by Organization D etails LastModified Time Do you or have you ever used any other forms of tobacco or nicotine? 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 Family History Nothing Reported. Medical History No medical history recorded. Gynecological HistoryNo gynecological history recorded. Obstetrics History GPAL:G 0 P 0 0 0 0 Immunizations Vaccine Type Date Status Note Provider Nam e and Address Organization Details Recorded Time Tdap 6 completed Aileen contreras [facility] 08/11/2018 08:31:23 Influenza, split virus, quadrivalent, preservative 8 completed Aileen contreras [facility] 11/24/2018 13:52:49 Influenza, split virus, quadrivalent, preservative 0 completed Aileen contreras [facility] 01/18/2020 13:40:46 Past Encounters Encounter ID Performer Location Encounter Start Date Encounter Closed Date Diagnosis/Indication Diagnosis SNOMED-CT Code Diagnosis ICD10 Code Diagnosis IMO Codes Diagnosis Note [id number] Luciano Gale [facility] [address], [place] [address] 03/25/2018 11:33:30 03/25/2018 15:12:34 Hypertensive disorder 54202268 I10 will maintain and follow bp let me know if chelsie starts dropping and stays down Hypercholesterolemia 136 78527 E78.00 rechk next vist Sleep disorder 75699978 G47.9 doing great on her supplement s states going to use exclusivel y [id number] Luciano Gale DO [address], [place] [address] 04/06/2018 10:55:58 04/06/2018 13:21:41 Current tear of medial cartilage AND/OR meniscus of knee [id number] S83.211S needs referral joe 8310 Luciano Gale [facility] [address], [place] [address] 08/03/2018 11:47:58 08/03/2018 14:27:08 Osteoarthritis of knee 090507693 M17.0 is completely disabled by the end stage osteoarthr itis of knees both are i need of replacemen t encouraged to get disability Hypertensive disorder 38 828945 I10 will maintain and follow bp let me know if bp starts dropping and stays down Degenerati on of cervical intervertebral disc 40855760 M50.30 will need to pursue PT but she is in such pain that she will need to go back to pain management and will eventually need an MRI to assess the degree of impairment [id number] Luciano Gale DO [facility] Medicine [address] [facility],[place] [address] 09/01/2018 15:31:11 09/02/2018 09:37:56 Osteoarthritis of knee 466221215 M17.0 is completely disabled by the end stage osteoarthr itis of knees both are i need of replacemen t encouraged to get disability waiting for appt for knee replace surgery will be on e30th will provide with pain med for now is no longer able to take nsaids cleared for surgery Morbid obesity 183902523 E66.01 Hypertensive disorder 38 982069 I10 will maintain and follow bp let me know if bp starts dropping and stays down [id number] Luciano Gale [facility] Medicine [address] [facility],[place] [address] 11/24/2018 13:47:33 11/24/2018 16:48:29 Osteoarthritis of knee 758879207 M17.0 is completely disabled by the end stage osteoarthr itis of knees both are i need of replacemen t encouraged to get disability is unable to get surgery due to poor dentition condition await this and in meantime must wean off vicodin and find other means of treatment long discuss of how to wean slowly off vicodin cutting down 1 pill pe r weak will provide with adjunct treatment to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
--- OUTSIDE RECORDS SUMMARY | 2025-08-17 18:48 | XMS_ITS | Encounter Summary ---
Author Organization [facility] Address [address] [place] [address] [place] [address] Phone Care Team Providers Care Ribbon Lap Machine Tender Name Role Phone Kilo Horowitz MD Unavailable [email or web address] Luciano Yuen DO Primary Care Provider +41 Danielle Wright CAR INSPECTOR Unavailable [phone] Ashley Cabello MD Unavailable Jyoti Stone MD Unavailable [phone] Adrianne Mehta MD Unavailable [phone] Luciano Yuen DO Unavailable Luciano Yuen DO Primary Care Provider + Frandyda, Luciano Jin DO Unavailable Encounter Details Date Type Department Care Team (Late st Contact Info) Description 08/06/2022 Procedure Pass [facility], [facility] 30 [place] [address] Social History Tobacco Use Types Packs/Day Years [...] 09/14/2025 2:00 PM EDT Office Visit [facility] 30 [place] [address] Adrianne Mehta MD 30 [place] [address] [email or web address] 09/28/2025 8:00 AM EST Office Visit [facility] [address] [place] [address] 3rd Floor, [address] [address] Felix Harvey MD [address] [place] [address] [email or web address] 10/14/2025 8:40 AM EST Office Visit [facility] Rheumatology 22 [place] [address] Katerine Velazquez MD, MPH [address] [place] [address], [address] [address] documented as of this encounter Visit Diagnoses Not on filedocumented in this encounter Care Teams Ribbon Lap Machine Tender Relationship Specialty Start Date End Date Luciano Yuen DO PCP - General Internal Medicine 03/18/19 12/09/24 Luciano Yuen DO [address] [place] [address] [place] [address] PCP - General Internal Medicine 12/10/24 Kilo Horowitz MD [email or web address] Historical LMR Provider 09/06/17 Danielle Wright FNP 30 [place] [address] Nurse Practitioner Medical Oncology 09/07/21 Ashley Cabello MD [address] [facility], [address] [place] [address] [email or web address] General Surgery 09/11/21 Jyoti Stone MD [address] [place] [address] [email or web address] du Radiation Oncology 01/01/22 Adrianne Mehta MD 30 [place] [address] Primary Oncologist Medical Oncology 06/13/21 Luciano Yuen DO 179 [place] [address] Insurance Assigned Provider 02/21/24 11/22/24 Luciano Yuen DO 179 [place] [address] Insurance Assigned Provider 02/20/25 documented as of this encounter Additional Source Comments The information contained in this document represents components of the legal health record. It is not the complete legal health record.[facility]
--- OUTSIDE RECORDS SUMMARY | 2025-08-17 18:48 | XMS_ITS | Encounter Summary ---
Author Organization [facility] Address [address] [place] [address] [address] [place] [address] Phone Care Team Providers Care Cto Name Role Phone Kilo Horowitz MD Unavailable [email or web address] Luciano Yuen DO Primary Care Provider +95 Danielle Wright MATZO FORMING MACHINE OPERATOR Unavailable [phone] Ashley Cabello MD Unavailable Jyoti Stone MD Unavailable [phone] Adrianne Mehta MD Unavailable [phone] Luciano Yuen DO Unavailable Luciano Yuen DO Primary Care Provider + Bigda, Luciano Jin DO Unavailable Encounter Details Date Type Department Care Team (Late st Contact Info) Description 09/05/2023 Procedure Pass [facility], [facility] 30 [place] [address] Social History Tobacco Use Types Packs/Day Years Used Date Smoking Tobacco: Former Cigarettes 0.8 5 1 8 - 1992 Smokeless Tobacco: Never Alcohol Use Standard Drinks/Week Comments Not Currently [...] Description 09/14/2025 2:00 PM EDT Office Visit [facility] at [address] [address] Adrianne Mehta MD [address] [place] [address] [email or web address] 09/28/2025 8:00 AM EST Office Visit [facility] [address] [place] [address] 3rd Floor, [address] [address] Felix Harvey MD [address] [place] [address] 10/14/2025 8:40 AM EST Office Visit [facility] Medical [facility] Rheumatology [address] [place] [address] Katerine Velazquez MD, MPH [address] [place] [address] documented as of this encounter Visit Diagnoses Not on filedocumented in this encounter Care Teams Cto Relationship Specialty Start Date End Date Luciano Yuen DO PCP - General Internal Medicine 03/18/19 12/09/24 Luciano Yuen DO [address] [place] [address] [place] [address] [email or web address] PCP - General Internal Medicine 12/10/24 Kilo Horowitz MD [email or web address] Historical LMR Provider 09/06/17 Danielle Wright FNP [address] [place] [address] [email or web address] Nurse Practitioner Medical Oncology 09/07/21 Ashley Cabello MD [address] [place] [address] [email or web address] General Surgery 09/11/21 Jyoti Stone MD [address] [place] [address] [email or web address] Radiation Oncology 01/01/22 Adrianne Mehta MD [address] [place] [address] [email or web address] Primary Oncologist Medical Oncology 06/13/21 Luciano Yuen DO 179 [place] [address] [email or web address] Insurance Assigned Provider 02/21/24 11/22/24 Luciano Yuen DO 179 [place] [address] [email or web address] Insurance Assigned Provider 02/20/25 documented as of this encounter Additional Source Comments The information contained in this document represents components of the legal health record. It is not the complete legal health record.[facility]
--- OUTSIDE RECORDS SUMMARY | 2025-08-17 18:48 | XMS_ITS | Encounter Summary ---
Author Organization [facility] Address [address] [place] [address] Phone Care Team Providers Care Medical Interpreter Name Role Phone Kilo Horowitz MD Unavailable [email or web address] Bhavana Espinoza NP Unavailable [phone] BigLuciano quinn DO Primary Care Provider +52 Adrianne Mehta MD Unavailable Danielle Wright VASC TECH Unavailable Ashley Cabello MD Unavailable Jyoti Stone MD Unavailable [phone] Adrianne Mehta MD Unavailable [phone] Luciano Yuen DO Unavailable Luciano Yuen DO Primary Care Provider +[phone] Luciano Yuen DO Unavailable Encounter Details Date Type Department Care Team (Latest Contact Info) Description 06/15/2021 Transcribe Orders Virtual Department 30 [place] [address] Ellen Johnson PA [address] [place] [address] [place] [address] LLQ pain (Primary Dx) Social History Tobacco Use Types Packs/Day Years Used Date Smoking Tobacco: Former Cigarettes Smokeless Tobacco: Never Comments:quit 28 yrs ago Alcohol Use Standard Drinks/Week Comments Yes 0 (1 standard drink = 0.6 oz pur e alcohol) very rare Comments No Sex and Gender Information Value Date Recorded Sex Assigned at Not on file Legal Sex Female 9:48 PM EDT Gender Identity Not on file Sexual Orientation Not on file documented as of this encounter Plan of Treatment Upcoming Encounters Date Type Department Care Team (Late st Contact Info) Description 09/14/2025 2:00 PM EDT Office Visit [facility] [place] [facility] 30 [place] [address] Adrianne Mehta MD [address] [place] [address] 09/28/2025 8:00 AM EST Office Visit [facility] [address] [place] [address] 3rd Floor, [address] [address] Felix Harvey MD [address] [place] [address] 10/14/2025 8:40 AM EST Office Visit [facility] Medical [facility] Rheumatology [address] [place] [address] Katerine Velazquez MD, MPH [address] [place] [address] documented as of this encounter Visit Diagnoses Diagnosis LLQ pain- Primary Abdominal pain, left lower quadrant documented in this encounter Care Teams Medical Interpreter Relationship Specialty Start Date End Date Luciano Yuen DO [address] [place] [address] PCP - General Internal Medicine 03/18/19 12/09/24 Luciano Yuen DO [address] [place] [address] [place] [address] [email or web address] PCP - General Internal Medicine 12/10/24 Kilo Horowitz MD [email or web address] Historical LMR Provider 09/06/17 Bhavana Espinoza NP [address] [place] [address] Historical LMR Provider 09/06/17 2 Adrianne Mehta MD 30 [place] [address] [email or web address] Primary Oncologist Medical Oncology 06/13/21 06/11/22 Danielle Wright FNP 30 [place] [address] [email or web address] Nurse Practitioner Medical Oncology 09/07/21 Ashley Cabello MD [address] [place] [address] 8 [place] [address] General Surgery 09/11/21 Jyoti Stone MD [address] [place] [address] [email or web address] Radiation Oncology 01/01/22 Adrianne Mehta MD 30 [place] [address] [email or web address] Primary Oncologist Medical Oncology 06/13/21 Luciano Yuen DO [address] [place] [address] [place] [address] [email or web address] Insurance Assigned Provider 02/21/24 11/22/24 Luciano uYen DO [address] [place] [address] [email or web address] Insurance Assigned Provider 02/20/25 documented as of this encounter Additional Source Comments The information contained in this document represents components of the legal health record. It is not the complete legal health record.[facility]
--- OUTSIDE RECORDS SUMMARY | 2025-08-17 18:48 | XMS_ITS | Encounter Summary ---
Author Organization [facility] Address [address] [place] [address] Phone Care Team Providers Care Core Filer Name Role Phone Kilo Horowitz MD Unavailable [email or web address] Bhavana Espinoza NP Unavailable [phone] Luciano Yuen DO Primary Care Provider [phone] Adrianne Mehta MD Unavailable Danielle Wright MANAGER SOFTWARE DEVELOPMENT Unavailable Ashley Cabello MD Unavailable Jyoti Stone MD Unavailable [phone] Adrianne Mehta MD Unavailable Luciano Yuen DO Unavailable Luciano Yuen DO Primary Care Provider [phone] Luciano Yuen DO Unavailable Encounter Details Date Type Department Care Team (Late st Contact Info) Description 07/26/2021 Ancillary Orders Virtual Department 30 [place] [address] Luciano Yuen DO [address] [place] [address] Abnormal mammogram Social History Tobacco Use Types Packs/Day [...] Description 09/14/2025 2:00 PM EDT Office [facility] 30 [place] [address] Adrianne Mehta MD [address] [place] [address] 09/28/2025 8:00 AM EST Office Visit [facility] [address] [place] [address] 3rd Floor, [address] [place] [address] Felix Harvey MD [address] [place] [address] 10/14/2025 8:40 AM EST Office Visit [facility] Rheumatology [address] [place] [address] Katerine Velazquez MD, MPH [address] [place] [address], [address] [address] documented as of this encounter Results * (ABNORMAL) BI MAMMOGRAM DIAGNOSTIC WITH TOMOSYNTHESIS WITH CAD (LEFT) (07/31/2021 9:08 AM EDT) Anatomical Region Laterality Modality Breast Left Left Mammography 07/31/2021 9:15 AM EDT Impressions 07/31/2021 9:22 AM EDT New clustered microcalcifications noted the 6 clock position in the left breast in an area of just under a centimeter sufficiently suspicious that stereotactic biopsy is recommended. BI-RADS CATEGORY: 4B - Moderate suspicion for malignancy. LEFT RECOMMENDATION DUE DATE: At This Time Left sterotactic core breast biopsy Narrative 07/31/2021 9:22 AM EDT Additional views of the left breast are obtained to supplement screening examination of July 25. Comparison made to other prior as well. The additional views include magnification CC and true lateral views as well as a full-field true lateral view with tomosynthesis. The additional views confirm the presence of new clustered largely punctate microcalcification without discrete mass in area measuring approximately 8 x 4 x 4 mm. The calcifications are sufficiently suspicious that stereotactic biopsy is recommended. Findings and recommendations are discussed with the patient and a message regarding the need for biopsy is called to Dr. Yuen service. us Luciano Yuen DO IMG MG EXAMS Final Result documented in this encounter Visit Diagnoses Diagnosis Abnormal mammogram Abnormal mammogram, unspecified Abnormal mammogram Abnormal mammogram, unspecified documented in this encounter Care Teams Core Filer Relationship Specialty Start Date End Date Luciano Yuen DO [address] [place] [address] PCP - General Internal Medicine 03/18/19 12/09/24 Luciano Yuen DO [address] [place] [address] PCP - General Internal Medicine 12/10/24 Kilo Horowitz MD [email or web address] Historical LMR Provider 09/06/17 Bhavana Espinoza NP [address] [place] [address] Historical LMR Provider 09/06/17 2 Adrianne Mehta MD [address] [place] [email or web address] Primary Oncologist Medical Oncology 06/13/21 06/11/22 Danielle Wright FNP 30 [place] [address] Nurse Practitioner Medical Oncology 09/07/21 Ashley Cabello MD [address] [place] [address] [address] [place] [address] General Surgery 09/11/21 Jyoti Stone MD [address] [place] [address] [email or web address] Radiation Oncology 01/01/22 Adrianne Mehta MD 30 [place] [address] Primary Oncologist Medical Oncology 06/13/21 Luciano Yuen DO 179 [place] [address] Insurance Assigned Provider 02/21/24 11/22/24 Luciano Yuen DO 179 [place] [address] Insurance Assigned Provider 02/20/25 documented as of this encounter Additional Source Comments The information contained in this document represents components of the legal health record. It is not the complete legal health record.[facility]
--- OUTSIDE RECORDS SUMMARY | 2025-08-17 18:48 | XMS_ITS | Encounter Summary ---
Author Organization [facility] Address [address] [place] [address] [place] [address] Phone Care Team Providers Care Bin Worker Name Role Phone Kilo Horowitz MD Unavailable [email or web address] Luciano Yuen DO Primary Care Provider +-[phone] Danielle Wright MERCHANDISE DISTRIBUTOR Unavailable [phone] Ashley Cabello MD Unavailable Jyoti Stone MD Unavailable [phone] Adrianne Mehta MD Unavailable [phone] [place], Luciano Jin DO Unavailable Luciano Yuen DO Primary Care Provider +[phone] Bigda, Luciano A DO Unavailable Encounter Details Date Type Department Care Team (Latest Contact Info) Description 01/22/2023 Transcribe Orders Virtual Department 30 [place] [address] Ellen Johnson PA [address] [facility] [place] [address] Arthritis, juvenile rheumatoid, polyarticular (Primary Dx) Social History Tobacco Use Types [...] Description 09/14/2025 2:00 PM EDT Office Visit [facility] 30 [place] [address] Adrianne Mehta MD [address] [place] [address] 09/28/2025 8:00 AM EST Office Visit [facility] 22 [facility] 3rd Floor, [address] [place] [address] Felix Harvey MD [address] [place] [address] 10/14/2025 8:40 AM EST Office Visit [facility] Rheumatology [address] [place] [address] Katerine Velazquez MD, MPH [address] [place] [address], [address] [address] documented as of this encounter Results * XR HAND 3 OR MORE VIEWS (BILATERAL) (05/14/2023 10:43 AM EDT) Anatomical Region Laterality Modality Hand Left Computed Radiogr aphy 05/15/2023 12:4 8 AM EDT Impressions 05/15/2023 12:52 AM EDT 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 Progressive severe osteoarthritis at the base of the thumbs. Right worse than left degenerative change of the distal radioulnar joint. Similar symmetric mild to moderate degenerative changes of the distal interphalangeal joints, consistent with osteoarthritis. No findings to suggest superimposed active inflammatory arthropathy. Narrative 05/15/2023 12:52 AM EDT XR HAND 3 OR MORE VIEWS (BILATERAL) COMPARISON: HAND 3 V RT FINDINGS: RIGHT HAND: Bones demineralized. No acute fracture or dislocation. There is progressive radial subluxation at the first metacarpal phalangeal joint. Severe joint space narrowing at the first CMC. Moderate to severe joint space narrowing at the STT and distal radioulnar joint. Mild to moderate interphalangeal joint space narrowing at the DIP joints. No periarticular bone loss or erosion. LEFT HAND: Bones demineralized. No acute fracture or dislocation. Severe joint space narrowing at the first CMC. Moderate to severe joint space narrowing at the STT. Moderate joint space narrowing at the distal radioulnar joint. Mild to moderate joint space narrowing at the distal interphalangeal joints. No periarticular bone loss or erosion. Procedure Note Violet To MD - 05/15/2023 XR HAND 3 OR MORE VIEWS (BILATERAL) COMPARISON: HAND 3 V RT FINDINGS: RIGHT HAND: Bones demineralized. No acute fracture or dislocation. Thereis progressive radial subluxation at the first metacarpal phalangealjoint. Severe joint space narrowing at the first CMC. Moderate to severejoint space narrowing at the STT and distal radioulnar joint. Mild tomoderate interphalangeal joint space narrowing at the DIP joints. Noperiarticular bone loss or erosion. LEFT HAND: Bones demineralized. No acute fracture or dislocation. Severejoint space narrowing at the first CMC. Moderate to severe joint spacenarrowing at the STT. Moderate joint space narrowing at the distalradioulnar joint. Mild to moderate joint space narrowing at the distalinterphalangeal joints. No periarticular bone loss or erosion. 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 Progressive severe osteoarthritis at the base of the thumbs. Right worse than left degenerative change of the distal radioulnarjoint. Similar symmetric mild to moderate degenerative changes of the distalinterphalangeal joints, consistent with osteoarthritis. No findings to suggest superimposed active inflammatory arthropathy. us Ellen HILLMAN IMG XR UPPER EXTREMITY Marina l Result documented in this encounter Visit Diagnoses Diagnosis Arthritis, juvenile rheumatoid, polyarticular- Primary Polyarticular juvenile rheumatoid arthritis, acute Arthritis, juvenile rheumatoid, polyarticular Polyarticular juvenile rheumatoid arthritis, acute documented in this encounter Care Teams Bin Worker Relationship Specialty Start Date End Date Luciano Yuen DO PCP - General Internal Medicine 03/18/19 12/09/24 Luciano Yuen DO [address] [place] [address] [place] [address] PCP - General Internal Medicine 12/10/24 Kilo Horowitz MD [email or web address] Historical LMR Provider 09/06/17 Danielle Wright FNP [address] [place] [address] Nurse Practitioner Medical Oncology 09/07/21 Ashley Cabello MD [address] [place] [address] 8 [place] [address] General Surgery 09/11/21 Jyoti Stone MD [address] [place] [address] [email or web address] Radiation Oncology 01/01/22 Adrianne Mehta MD [address] [place] [address] [email or web address] Primary Oncologist Medical Oncology 06/13/21 Luciano Yune DO 179 [place] [address] Insurance Assigned Provider 02/21/24 11/22/24 Luciano Yuen DO 179 [place] [address] Insurance Assigned Provider 02/20/25 documented as of this encounter Additional Source Comments The information contained in this document represents components of the legal health record. It is not the complete legal health record.[facility]
--- OUTSIDE RECORDS SUMMARY | 2025-08-17 18:48 | XMS_ITS | Encounter Summary ---
Author Organization [facility] Address [address] [place] [address] Phone Care Team Providers Care Port Steward Name Role Phone Kilo Horowitz MD Unavailable [email or web address] Luciano Yuen DO Primary Care Provider [phone] Adrianne Mehta MD Unavailable [phone] Danielle Wright BIOMEDICAL ENGINEER Unavailable [phone] Ashley Cabello MD Unavailable Jyoti Stone MD Unavailable [phone] Adrianne Mehta MD Unavailable [phone] Luciano Yuen DO Unavailable + Luciano Yuen DO Primary Care Provider + BigLuciano quinn DO Unavailable + Reason for Referral * MRI/CAT Scan - Closed Specialty Diagnoses / Procedures Referred By Contronan t Referred To Contact Radiology Diagnoses Left shoulder pain, unspecified chronicity Procedures MRI Shoulder (Left) Ellen Johnson PA Phone: tel: fax: [address] [address] Phone: tel: Referral ID Status Reason Start Date Expiration Date Visits Re quested Visits Authorized [id number] Closed 04/29/2022 04/29/2023 1 1 Encounter Details Date Type Department Care Team (Latest Contact Info) Description 04/29/2022 Transcribe Orders [facility] Department [address] [place] [address] Ellen Johnson PA [address] [facility] [place] [address] [place] [address] Left shoulder pain, unspecified chronicity (Primary Dx) Social History Tobacco Use Types [...] Description 09/14/2025 2:00 PM EDT Office Visit [facility] at [address] [address] Adrianne Mehta MD [address] [place] [address] 09/28/2025 8:00 AM EST Office Visit [facility] [address] [place] [address] 3rd Floor, [address] [address] Felix Harvey MD [address] [place] [address] 10/14/2025 8:40 AM EST Office Visit [facility] Rheumatology [address] [place] [address] Katerine Velazquez MD, MPH [address] [place] [address] .Data Expedition documented as of this encounter Results * MRI SHOULDER WITHOUT CONTRAST (LEFT) (05/16/2022 7:17 AM EDT) Anatomical Region Laterality Modality Shoulder Left Magnetic Resonan ce 05/16/2022 7:44 AM EDT Impressions 05/16/2022 7:49 AM EDT Subscapularis tendinosis with a high-grade, partial thickness interstitial tear, intra-articular biceps tendinosis, and medial subluxation of the long head of biceps tendon. Severe glenohumeral osteoarthritis. Narrative 05/16/2022 7:49 AM EDT MRI SHOULDER WITHOUT CONTRAST (LEFT) TECHNIQUE: Multi-sequence, multi-planar MRI of the shoulder without intravenous contrast. COMPARISON: XR SHOULDER 2 OR MORE VIEWS (LEFT) FINDINGS: Coracoacromial Arch: Acromioclavicular joint is intact. There is trace subacromial-subdeltoid bursal fluid. Rotator Cuff: There is subscapularis tendinosis with a high-grade, partial thickness interstitial tear and medial subluxation of the long head of biceps tendon. There is supraspinatus and infraspinatus tendinosis. No focal muscle atrophy. Glenoid Labrum and Biceps Tendon: No displaced labral tear. There is intra- articular biceps tendinosis and medial subluxation of the tendon into the subscapularis tear. There is associated biceps tenosynovitis. Bones: Traction-related cystic change at the rotator cuff insertion. Glenohumeral Joint: There is broad, full-thickness glenoid and humeral cartilage loss. Joint effusion with synovitis and loose bodies. Small amount of fluid in the subcoracoid bursa. Procedure Note Ester Oreilly MD - 05/16/2022 MRI SHOULDER WITHOUT CONTRAST (LEFT) TECHNIQUE: Multi-sequence, multi-planar MRI of the shoulder withoutintravenous contrast. COMPARISON: XR SHOULDER 2 OR MORE VIEWS (LEFT) FINDINGS: Coracoacromial Arch: Acromioclavicular joint is intact. There is tracesubacromial-subdeltoid bursal fluid. Rotator Cuff: There is subscapularis tendinosis with a high-grade, partialthickness interstitial tear and medial subluxation of the long head ofbiceps tendon. There is supraspinatus and infraspinatus tendinosis. Nofocal muscle atrophy. Glenoid Labrum and Biceps Tendon: No displaced labral tear. There isintra- articular biceps tendinosis and medial subluxation of the tendoninto the subscapularis tear. There is associated biceps tenosynovitis. Bones: Traction-related cystic change at the rotator cuff insertion. Glenohumeral Joint: There is broad, full-thickness glenoid and humeralcartilage loss. Joint effusion with synovitis and loose bodies. Smallamount of fluid in the subcoracoid bursa. IMPRESSION: Subscapularis tendinosis with a high-grade, partial thickness interstitialtear, intra-articular biceps tendinosis, and medial subluxation of thelong head of biceps tendon. Severe glenohumeral osteoarthritis. Ellen HILLMAN IMG MR EXTREMITY Final Resu lt documented in this encounter Visit Diagnoses Diagnosis Left shoulder pain, unspecified chronicity- Primary Left shoulder pain, unspecified chronicity documented in this encounter Care Teams [place] Relationship Specialty Start Date End Date Luciano Yuen DO [email or web address] PCP - General Internal Medicine 03/18/19 12/09/24 Luciano Yuen DO [address] [place] [address] PCP - General Internal Medicine 12/10/24 Kilo Horowitz MD [email or web address] Historical LMR Provider 09/06/17 Adrianne Mehta MD [address] [place] [address] Primary Oncologist Medical Oncology 06/13/21 06/11/22 Danielle Wright FNP [address] [place] [address] Nurse Practitioner Medical Oncology 09/07/21 Ashley Cabello MD 264 [facility] 8 [place] [address] [email or web address] General Surgery 09/11/21 Jyoti Stone MD [address] [place] [address] [email or web address] Oncology 01/01/22 Adrianne Mehta MD [address] [place] [address] Primary Oncologist Medical Oncology 06/13/21 Luciano Yuen DO [address] [place] [address] Insurance Assigned Provider 02/21/24 11/22/24 Luciano Yuen DO [address] [place] [address] [email or web address] Insurance Assigned Provider 02/20/25 documented as of this encounter Additional Source Comments The information contained in this document represents components of the legal health record. It is not the complete legal health record.[facility]
--- OUTSIDE RECORDS SUMMARY | 2025-08-17 18:48 | XMS_ITS | Encounter Summary ---
Author Organization [facility] Address [address] [place] [address] [place] [address] Phone Care Team Providers Care Tobacco Acreage Measurer Name Role Phone AlpaLuciano A DO Unavailable Kilo Horowitz MD Unavailable [email or web address] Adrianne Mehta MD Unavailable [phone] Bhavana Espinoza NP Unavailable Pcp, Unknown Primary Care Provider Unavailabl e Bigda, Luciano A DO Primary Care Provider [phone] Bigda, Luciano A DO Primary Care Provider [phone] Bigda, Luciano A DO Unavailable Adrianne Mehta MD Unavailable [phone] Danielle Wright MEDICAL OFFICE RECEPTIONIST Unavailable [phone] Ashley Cabello MD Unavailable Jyoti Stone MD Unavailable [phone] Adrianne Mehta MD Unavailable [phone] Bigda, Luciano A DO Unavailable Bigda, Luciano A DO Primary Care Provider [phone] Bigda, Luciano A DO Unavailable Encounter Details Date Type Department Care Team (Late st Contact Info) Description 09/06/2017 Ancillary Orders [facility] at [address] [address] Adrianne Mehta MD [address] [place] [address] Social History Tobacco Use Types Packs/Day Years [...] Description 09/14/2025 2:00 PM EDT Office Visit [facility] at [address] [address] Adrianne Mehta MD [address] [place] [address] 09/28/2025 8:00 AM EST Office Visit [facility] [address] [place] [address] 3rd Floor, [address] [place] [address] Felix Harvey MD [address] [place] [address] 10/14/2025 8:40 AM EST Office Visit [facility] Rheumatology [address] [place] [address] Katerine Velazquez MD, MPH [address] [place] [address] documented as of this encounter Visit Diagnoses Not on filedocumented in this encounter Care Teams Tobacco Acreage Measurer Relationship Specialty Start Date End Date Pcp, Unknown PCP - General 09/06/17 10/15/17 Luciano Yuen DO PCP - General 10/16/17 03/17/19 Luciano Yuen DO PCP - General Internal Medicine 03/18/19 12/09/24 Luciano Yuen DO [address] [place] [address] PCP - General Internal Medicine 12/10/24 Luciano Yuen DO [address] [place] [address] Historical LMR Provider 09/06/17 12/08/17 Kilo Horowitz MD [email or web address] Historical LMR Provider 09/06/17 Adrianne Mehta MD [address] [place] [address] [email or web address] Historical LMR Provider 09/06/17 06/12/21 Bhavana Espinoza NP [address] [place] [address] Historical LMR Provider 09/06/17 2 Luciano Yuen DO [address] [place] [address] [email or web address] Insurance Assigned Provider 03/20/19 06/12/21 Adrianne Mehta MD [address] [place] [address] Primary Oncologist Medical Oncology 06/13/21 06/11/22 Danielle Wright FNP [address] [place] [address] Nurse Practitioner Medical Oncology 09/07/21 Ashley Cabello MD [address] [place] [address] [address] [place] [address] [email or web address] General Surgery 09/11/21 Jyoti Stone MD [address] [place] [address] [email or web address] Oncology 01/01/22 Adrianne Mehta MD [address] [place] [address] Primary Oncologist Medical Oncology 06/13/21 Luciano Yuen DO [address] [place] [address] Insurance Assigned Provider 02/21/24 11/22/24 Luciano Yuen DO [address] [place] [address] Insurance Assigned Provider 02/20/25 documented as of this encounter Additional Source Comments The information contained in this document represents components of the legal health record. It is not the complete legal health record.[facility]
--- OUTSIDE RECORDS SUMMARY | 2025-08-17 18:48 | XMS_ITS | Encounter Summary ---
Author Organization [facility] Address [address] [place] [address] 9[address] [place] [address] Phone Care Team Providers Care Cryptologic Linguist Name Role Phone Kilo Horowitz MD Unavailable [email or web address] [email or web address] Adrianne Mehta MD Unavailable Bhavana Espinoza NP Unavailable Luciano Yuen DO Primary Care Provider [phone] Luciano Yuen DO Unavailable Adrianne Mehta MD Unavailable Danielle Wright ACCOUNTING OFFICER Unavailable Ashley Cabello MD Unavailable Jyoti Stone MD Unavailable [phone] Adrianne Mehta MD Unavailable Luciano Yuen DO Unavailable Luciano Yuen A DO Primary Care Provider [phone] BigdaLuciano DO Unavailable Encounter Details Date Type Department Care Team (Late st Contact Info) Description 03/31/2019 Transcribe Orders [facility] [address] [place], [place] [phone] Luciano Yuen DO [address] [place] [address] Social History Tobacco Use Types Packs/Day Years [...] Description 09/14/2025 2:00 PM EDT Office Visit [facility] at [address] [address] Adrianne Mehta MD [address] [place] [address] [email or web address] 09/28/2025 8:00 AM EST Office Visit [facility] [address] [place] [address] 3rd Floor, [address] [address] Felix Harvey MD [address] [place] [address] [email or web address] 10/14/2025 8:40 AM EST Office Visit [facility] Rheumatology [address] [place] [address] Katerine Velazquez MD, MPH [address] [place] [address], [address] [address] documented as of this encounter Visit Diagnoses Not on filedocumented in this encounter Care Teams Cryptologic Linguist Relationship Specialty Start Date End Date Luciano Yuen DO [address] [place] [address] PCP - General Internal Medicine 03/18/19 12/09/24 Luciano Yuen DO [address] [place] [address] [email or web address] PCP - General Internal Medicine 12/10/24 Kilo Horowitz MD [email or web address] Historical LMR Provider 09/06/17 Ardianne Mehta MD [address] [place] [address] [email or web address] Historical LMR Provider 09/06/17 06/12/21 Bhavana Espinoza NP [address] [place] [address] Historical LMR Provider 09/06/17 2 Luciano Yuen DO [address] [place] [address] [email or web address] Insurance Assigned Provider 03/20/19 06/12/21 Adrianne Mehta MD [address] [place] [address] Primary Oncologist Medical Oncology 06/13/21 06/11/22 Danielle Wright, ACCOUNTING OFFICER [address] [place] [address] Nurse Practitioner Medical Oncology 09/07/21 Ashley Cabello MD [address] [place] [address] 8 [place] [address] General Surgery 09/11/21 Jyoti Stone MD [address] [place] [address] [email or web address] Oncology 01/01/22 Adrianne Mehta MD [address] [place] [address] [email or web address] Primary Oncologist Medical Oncology 06/13/21 Luciano Yuen DO [address] [place] [address] [email or web address] Insurance Assigned Provider 02/21/24 11/22/24 Luciano Yuen DO [address] [place] [address] [email or web address] Insurance Assigned Provider 02/20/25 documented as of this encounter Additional Source Comments The information contained in this document represents components of the legal health record. It is not the complete legal health record.[facility]
--- OUTSIDE RECORDS SUMMARY | 2025-08-17 18:48 | XMS_ITS | Encounter Summary ---
Author Organization [facility] Address [address] [place] [address] Phone Care Team Providers Care Office Machines Wirer Name Role Phone Kilo Horowitz MD Unavailable [email or web address] Luciano Yuen DO Primary Care Provider [phone] Adrianne Mehta MD Unavailable [phone] Danielle Wright BAG MACHINE OPERATOR HELPER Unavailable [phone] Ashley Cabello MD Unavailable Jyoti Stone MD Unavailable [phone] Adrianne Mehta MD Unavailable [phone] Luciano Yuen DO Unavailable Luciano Yuen DO Primary Care Provider + Luciano Yuen DO Unavailable + Encounter Details Date Type Department Care Team (Latest Contact Info) Description 04/17/2022 Transcribe Orders Virtual Department [address] [place] [address] Ellen Johnson PA [address] [place] [address] [place] [address] Localized swelling, mass and lump, left upper limb (Primary Dx); Left shoulder pain, unspecified chronicity Social History Tobacco Use Types Packs/Day Years Used Date Smoking Tobacco: Former Cigarettes 0.8 5 1 988 - 1993 Smokeless Tobacco: Never Alcohol Use Standard Drinks/Week [...] Description 09/14/2025 2:00 PM EDT Office Visit [facility] at [address] [address] Adrianne Mehta MD [address] [place] [address] [email or web address] 09/28/2025 8:00 AM EST Office Visit [facility] [address] [place] [address] 3rd Floor, [address] [place] [address] Felix Harvey MD [address] [place] [address] 10/14/2025 8:40 AM EST Office Visit [facility] Rheumatology [address] [place] [address] Katerine Velazquez MD, MPH [address] [place] [address], [address] [address] documented as of this encounter Results * US UPPER EXTREMITY NON-VASCULAR LIMITED (LEFT) (04/25/2022 2:19 PM EDT) Anatomical Region Laterality Modality Shoulder Left, Arm Left, Elb ow Left, Forearm Left, Wrist Left, Hand Left Ultrasound 04/25/2022 5:52 PM EDT Impressions 04/25/2022 5:54 PM EDT 3.4 x 3.2 cm lipoma corresponding to the palpable area. Narrative 04/25/2022 5:54 PM EDT TECHNIQUE: US UPPER EXTREMITY NON-VASCULAR LIMITED (LEFT) Focused sonographic evaluation of the left upper extremity COMPARISON: None FINDINGS: Targeted ultrasound examination of the palpable area indicated by the patient over the upper lateral arm demonstrates a relatively well-defined echogenic subcutaneous mass measuring 3.4 x 3.2 x 1.8 cm, without significant internal vascularity, most consistent with lipoma. No other cystic or solid mass. Procedure Note Clay Carrillo MD - 04/25/2022 TECHNIQUE: US UPPER EXTREMITY NON-VASCULAR LIMITED (LEFT) Focused sonographic evaluation of the left upper extremity COMPARISON: None FINDINGS: Targeted ultrasound examination of the palpable area indicated by thepatient over the upper lateral arm demonstrates a relatively well-definedechogenic subcutaneous mass measuring 3.4 x 3.2 x 1.8 cm, withoutsignificant internal vascularity, most consistent with lipoma. No othercystic or solid mass. IMPRESSION: 3.4 x 3.2 cm lipoma corresponding to the palpable area. Ellen Jung HILLMAN IMG US EXTREMITY Final Resu lt * XR SHOULDER 2 VIEWS (LEFT) (04/25/2022 2:03 PM EDT) Anatomical Region Laterality Modality Shoulder Left Computed Radiogr aphy 04/26/2022 2:50 PM EDT Impressions 04/26/2022 2:51 PM EDT No findings to account for pain. Narrative 04/26/2022 2:51 PM EDT COMPARISON: 07/21/2009. LEFT SHOULDER RADIOGRAPH FINDINGS: 5 images obtained. Port-A-Cath has been removed since the prior study. No acute fracture or malalignment. Joint spaces are preserved. No destructive or suspicious bone lesions. No rotator cuff calcifications. Imaged left lung is clear. Procedure Note Zeb Rosa MD - 04/26/2022 COMPARISON: 07/21/2009. LEFT SHOULDER RADIOGRAPH FINDINGS: 5 images obtained. Port-A-Cath has been removed since the prior study. No acute fracture ormalalignment. Joint spaces are preserved. No destructive or suspiciousbone lesions. No rotator cuff calcifications. Imaged left lung is clear. IMPRESSION: No findings to account for pain. us Ellen HILLMAN IMG XR UPPER EXTREMITY Marina l Result documented in this encounter Visit Diagnoses Diagnosis Localized swelling, mass and lump, left upper limb- Primary Left shoulder pain, unspecified chronicity Left shoulder pain, unspecified chronicity Localized swelling, mass and lump, left upper limb documented in this encounter Care Teams Office Machines Wirer Relationship Specialty Start Date End Date Luciano Yuen DO PCP - General Internal Medicine 03/18/19 12/09/24 Luciano Yuen DO [address] [place] [address] [place] [address] PCP - General Internal Medicine 12/10/24 Kilo Horowitz MD [email or web address] Historical LMR Provider 09/06/17 Adrianne Mehta MD [address] [place] [phone] [email or web address] Primary Oncologist Medical Oncology 06/13/21 06/11/22 Danielle Wright FNP [address] [place] [address] Nurse Practitioner Medical Oncology 09/07/21 Ashley Cabello MD [address] [place] [address] 8 [place] [address] General Surgery 09/11/21 Jyoti Stone MD [address] [place] [address] [email or web address] 01/01/22 Adrianne Mehta MD [address] [place] [address] Primary Oncologist Medical Oncology 06/13/21 Luciano Yuen DO [address] [place] [address] Insurance Assigned Provider 02/21/24 11/22/24 Luciano Yuen DO [address] [place] [address] Insurance Assigned Provider 02/20/25 documented as of this encounter Additional Source Comments The information contained in this document represents components of the legal health record. It is not the complete legal health record.[facility]
--- OUTSIDE RECORDS SUMMARY | 2025-08-17 18:48 | XMS_ITS | Encounter Summary ---
Author Organization [facility] Address [address] [place] [address] 9[address] [place] [address] Phone Care Team Providers Care Produce Team Member Name Role Phone Kilo Horowitz MD Unavailable [email or web address] Adrianne Mehta MD Unavailable Bhavana Espinoza NP Unavailable Luciano Yuen DO Primary Care Provider [phone] [place], Luciano Jin DO Unavailable Adrianne Mehta MD Unavailable Danielle Wright PRODUCT SAFETY TESTER Unavailable Ashley Cabello MD Unavailable Jyoti Stone MD Unavailable [phone] Adrianne Mehta MD Unavailable BigLuciano quinn DO Unavailable [place], Luciano A DO Primary Care Provider [phone] BigdaLuciano A DO Unavailable Encounter Details Date Type Department Care Team (Late st Contact Info) Description 05/07/2021 Transcribe Orders [facility] Department [address] [place] [address] Luciano Yuen DO [address] [facility] [place] [address] [place] [address] [email or web address] Low back pain, unspecified back pain laterality, unspecified chronicity, unspecified whether sciatica present (Primary Dx) Social History Tobacco Use Types [...] Description 09/14/2025 2:00 PM EDT Office Visit [facility] at [address] [address] Adrianne Mehta MD [address] [place] [address] [email or web address] 09/28/2025 8:00 AM EST Office Visit [facility] [address] [place] [address] 3rd Floor, [address] [place] [address] Felix Harvey MD [address] [place] [address] [email or web address] 10/14/2025 8:40 AM EST Office Visit [facility] Rheumatology [address] [place] [address] [place] [address] Katerine Velazquez MD, MPH [address] [place] [address], [address] [address] [email or web address] documented as of this encounter Visit Diagnoses Diagnosis Low back pain, unspecified back pain laterality, unspecified chronicity, unspecified whether sciatica present- Primary documented in this encounter Care Teams Produce Team Member Relationship Specialty Start Date End Date Luciano Yuen DO [address] [place] [address] [email or web address] PCP - General Internal Medicine 03/18/19 12/09/24 Luciano Yuen DO [address] [place] [address] [email or web address] PCP - General Internal Medicine 12/10/24 Kilo Horowitz MD [email or web address] Historical LMR Provider 09/06/17 Adrianne Mehta MD [address] [place] [address] [email or web address] Historical LMR Provider 09/06/17 06/12/21 Bhavana Espinoza NP [address] [place] [address] Historical LMR Provider 09/06/17 Luciano Yuen DO [address] [place] [address] [email or web address] Insurance Assigned Provider 03/20/19 06/12/21 Adrianne Mehta MD [address] [place] [address] [email or web address] Primary Oncologist Medical Oncology 06/13/21 06/11/22 Danielle Wright FNP [address] [place] [address] [email or web address] Nurse Practitioner Medical Oncology 09/07/21 Ashley Cabello MD [address] [place] [address] 8 [place] [address] [email or web address] General Surgery 09/11/21 Jyoti Stone MD [address] [place] [address] [email or web address] Oncology 01/01/22 Adrianne Mehta MD [address] [place] [address] Primary Oncologist Medical Oncology 06/13/21 Luciano Yuen DO 179 [facility] [place] [address] Insurance Assigned Provider 02/21/24 11/22/24 Luciano Yuen DO [address] [place] [address] Insurance Assigned Provider 02/20/25 documented as of this encounter Additional Source Comments The information contained in this document represents components of the legal health record. It is not the complete legal health record.[facility]
--- OUTSIDE RECORDS SUMMARY | 2025-08-17 18:48 | XMS_ITS | Continuity of Care Document ---
Author Organization [facility] Address [address] [facility] [place] [address] Care Team Providers Care Locomotive Engineer Name Role Phone JIA GARCIA Generator Repairer [phone] Assessment Encounter Date Assessment Date Assessment LastModified by Organization Details LastModified Time 08/17/2025 08/17/2025 Patient presente d to office [...] Not available Lab lipid panel, blood 2024 [facility], [address] [place] [address], [place], [address], 08/17/2025 10:58:29 CBC w/ auto diff 2024 025 [facility], [address] [place] [address], [place], [address], 08/17/2025 10:58:29 CMP, serum or plasma 2024 025 [facility], [address] [place] [address], [place], [address], 08/17/2025 10:58:29 vitamin D, 25-hydrox y, total, serum 2024 025 [facility], [address] [place] [address], [place], [address], 08/17/2025 10:59:00 Referral None recorded. Procedures None recorded. Surgeries None recorded. Imaging None recorded. Medication Orders None recorded. Patient TargetsNo targets recorded. Patient Instructions Encounter Date Encounter Id Patient Instructions Last Modified By Organization Details Last Modified Time 08/17/2025 [id number] pulse oximetry* DEEP Not available 08/17/2025 12:31:01 advance care planning: care instructions Not available 08/17/2025 10:57:02 Discussed and explained advance directives such as standard forms to the . Face to face discussion lasted for a duration of ___ minutes. [email or web address] Not available 08/01/2025 12:12:30 Reason for Referral None Reported. Results Created Date Observation Date Name Description Value Unit Range Abnormal Flag Note LastModifiedBy Organization Detail LastModifiedTime 08/17/2008/17/2025 pulse oxime try* Result 96 Not Available [facility] [address] [facility] [address], [place], [address], 08/01/2025 12:15:45 Result Notes None recorded. Problems Name Problem SNOMED Code Status Onset Date Resolution Date Notes Provider Name and Address Organization Details Recorded Time Carcinom a of breast 449508742 Active 2017 Age 43 s/pmastec edwige Kim contreras [facility] 8 09:20:56 Morbid obesity 703140587 Active 2017 Kim contreras [facility] Internal [facility] 8 09:21:09 Migraine 20654791 Active 2017 opthalmic Kim contreras [facility] 8 09:21:38 Hypercho lesterol emia 80329343 Active 2017 Kim Igel null, [facility] 8 09:22:00 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 008328221 Active 2017 Kim Igel null, [facility] 8 09:23:09 Cervical spondylo sis 007369737 Active 2017 M47.812 Kim Igel null, [facility] 8 09:24:53 Sleep disorder 88200205 Active 2017 Kim Igel null, [facility] 8 09:24:06 Hyperten sive disorder 12522089 Active 2017 Kim Igel null, [facility] 8 09:24:19 Osteoart hritis of knee 372246199 Active 2017 Luciano Gale, DO [address] [place] [address], [address], [facility] 8 16:03:19 Degenera tion of cervical interver tebral disc 03027334 Active 2017 Luciano Gale DO [address] [place], [address], [facility] 8 12:23:48 Depressi ve disorder 02699327 Active 2018 Luciano Gale, DO [address] [place], [address], [facility] 9 10:07:00 Edema of lower extremit y 497458454 Active 2018 Luciano Gale DO [address] [place], [address], [facility] 9 12:10:52 Atrial fibrilla tion 92202478 Active 2018 Luciano Gale DO [address] [place], [address], [facility] 9 16:23:16 Follicul itis 60808966 Active 2018 Luciano Gale, DO [address] [place], [address], [facility] 9 11:30:18 Nummular eczema 46615308 Active 2020 Luciano Gale, DO [address] [place], [address], [facility] 1 11:47:46 Mass of soft tissue of left upper limb 44324537241 687519 Active 2021 KADY JULIAN [address] [place], [address], [facility] 2 11:21:11 Pain of shoulder region 17305348 Active 2021 KADY JULIAN [address] [place] [address], [address], [facility] 2 11:23:48 Pain of shoulder region 97693571 Active 2021 KADY JULIAN [address] [place], [address], [facility] 2 11:23:54 Longitud inal split nail 42194742 Active 2021 KADY JULIAN [address] [place] [address], [address], [facility] 2 11:24:59 Pain of left shoulder joint 36064616940 505333 Active 2021 KADY JULIAN [address] [place], [address], [facility] 2 10:12:11 Subscapu fany tendinit is 814040456 Active 2021 KADY JULIAN [address] [place], [address], [facility] 2 13:58:19 Restless legs syndrome 16018480 Active 2022 KADY JULIAN [address] [place] [address], [address], [facility] 5 09:59:43 Chronic kidney disease stage 2 744311943 Active 2022 KADY JULIAN [address] [place] [address], [address], [facility] 3 09:42:38 Pain of right shoulder joint 21464646122 398105 Active 2023 KADY JULIAN [address] [place] [address], [address], [facility] 4 11:58:13 Glenoid labrum tear 278879692 Active 2023 KADY JULIAN [address] [place] [address], [address], [facility] 4 10:24:35 Carpal tunnel syndrome of left wrist 81253297334 9102 Active 2023 Luciano Gale DO [address] [place] [address], [address], [facility] 4 10:13:04 Lumbago with sciatica 728352367 Active 2023 Luciano Gale DO [address] [place] [address], [address], [facility] 4 10:16:31 Acute pharyngi tis 165143764 Active 2024 KADY JULIAN [address] [place] [address], [address], [facility] 5 09:57:29 Acute cough Active 2024 KADY JULIAN [address] [place] [address], [address], [facility] 5 09:57:40 Problem Notes None recorded. Medical Equipment None Reported. Allergies Allergen ID Allergen Name Allergen Category Reaction Reaction Severity Criticality Documentation Date Start Date Code Code System Note Provider Name and Address Organization Details Recorded Time 298 oxycodone medicatio n itching Not available Not available 03/09/2019 7804 RxNorm Lou contreras [place] [facility] 9 11:44:44 Medications Name Sig Start Date [...] completed Not Available Not Available Not Available Nyamyc 100,000 unit/gram topical powder APPLY TO THE [...] Updated DateTime 5 168.91 cm 45.8 kg/m2 304636. 6 g 65 /min 96 % 96 % 144/92 mm[Hg] Salma Hernández [facility] 5 10:33:25 Social History Question Answer Notes LastModified by [...] other forms of tobacco or nicotine? 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 Family History Nothing Reported. Medical History No medical history recorded. Gynecological HistoryNo gynecological history recorded. Obstetrics History GPAL:G 0 P 0 0 0 0 Immunizations Vaccine Type Date Status Note Provider Nam e and Address Organization Details Recorded Time Tdap 6 completed Aileen contreras [facility] 08/11/2018 08:31:23 Influenza, split virus, quadrivalent, preservative 8 completed Aileen contreras [facility] 11/24/2018 13:52:49 Influenza, split virus, quadrivalent, preservative 0 completed Aileen contreras [facility] 01/18/2020 13:40:46 Past Encounters Encounter ID Performer Location Encounter Start Date Encounter Closed Date Diagnosis/Indication Diagnosis SNOMED-CT Code Diagnosis ICD10 Code Diagnosis IMO Codes Diagnosis Note [id number] Luciano Gale [facility] [address],[place] [address] 08/17/2025 10:09:28 08/17/2025 12:40:06 Screening for cardiovascular system disease 212670647 Z13.6 Screening for malignant neoplasm of colon 201775131 Z12.11 did receive the letter for colonoscop y last year but she didnt gostates is not worried about this and prob will not go Screening for osteoporosis 939462197 Z13.820 utd Screening mammography 24 575265 Z12.31 utd Depression screening 171 752934 Z13.31 neg Atrial fibrillation 4943 6004 I48.91 on low dose asacont with the diltiazem as the VR is now 70's and is almost regular if the above diltiazem is unhelpful we will once again go back to the verapamil Hypertensive disorder 38 540266 I10 is on 360mg of cardizem will not increase any furtherbps have been oklisinopr il is working well and the dose is quite low Preventive procedure 169 436444 Z00.00 17345960 overall is about at baseline she is impeded bc of the arthritis and this is not getting any better Health Concerns Section Related Observation LastModified by Organization Detai ls LastModified Time None Recorded Concern Status LastModified by Organization Details LastModified Time None Recorded Payers Encounter Date Sequence Insurance Name Policy Number Policy Nicole Covered Member ID Nicole Member ID Guarantor Name 08/17/2025 1 [place] [employer] Bernarda Gentile [id number] Felix Gentile 08/17/2025 2 [place] [id number] Bernarda Gentile [id number] Felix Krupa Notes Date Note Type Note Provider Name and Address Organization Details Recorded Time 5 text/htm l Care Management - HypertensionReported by Patient Care Management - Atrial FibrillationReported by Patient Medicare Annual Wellness VisitReported by PatientROS as noted in the HPI Luciano Gale, DO [address] [place] [address], [place], [address], [facility] 08/17/2025 10:59:02 OBGyn Episode No OBEpisode recorded.
--- OUTSIDE RECORDS SUMMARY | 2025-08-17 18:48 | XMS_ITS | Encounter Summary ---
Author Organization [facility] Address [address] [place] [address] Phone Care Team Providers Care Map Clerk Name Role Phone Kilo Horowitz MD Unavailable [email or web address] Luciano Yuen DO Primary Care Provider [phone] Danielle Wright SPLITTING MACHINE OPERATOR HELPER Unavailable [phone] Ashley Cabello MD Unavailable Jyoti Stone MD Unavailable [phone] Adrianne Mehta MD Unavailable [phone] Alpa, Luciano Jin DO Unavailable Luciano Yuen DO Primary Care Provider [phone] Bigda, Luciano Jin DO Unavailable Encounter Details Date Type Department Care Team (Late st Contact Info) Description 01/26/2024 Ancillary Orders [facility], X-Ray - [facility] [address] [place] [address] Ellen Johnson PA [address] [place] [address] [place] [address] Right shoulder pain, unspecified chronicity (Primary Dx) Social [...] Description 09/14/2025 2:00 PM EDT Office Visit [facility] at [address] [address] Adrianne Mehta MD [address] [place] [address] 09/28/2025 8:00 AM EST Office Visit [facility] [address] [place] [address] 3rd Floor, [address] [place] [address] Felix Harvey MD [address] [place] [address] 10/14/2025 8:40 AM EST Office Visit [facility] Rheumatology [address] [place] [address] Katerine Velazquez MD, MPH [address] [place] [address], [address] [address] documented as of this encounter Results * XR SHOULDER 2 VIEWS (RIGHT) (01/26/2024 1:34 PM EDT) Anatomical Region Laterality Modality Shoulder Right Computed Radiogr aphy 01/30/2024 10:2 3 AM EDT Impressions 01/30/2024 11:14 AM EDT Osteoarthritic changes at the glenohumeral joint, including severe joint space narrowing. Fairly mild degenerative change at the acromioclavicular joint. Narrative 01/30/2024 11:14 AM EDT XR SHOULDER 2 OR MORE VIEWS (RIGHT) Referring clinician's provided indication for this examination in Epic: Pain COMPARISON: None. FINDINGS: No fracture, subluxation or dislocation. Fairly severe joint space narrowing at the glenohumeral joint. Mild marginal spurring. Mild degenerative spurring at the acromioclavicular joint. No evidence of erosions. No significant soft tissue calcifications. Procedure Note Burton Zamora MD - 01/30/2024 XR SHOULDER 2 OR MORE VIEWS (RIGHT) Referring clinician's provided indication for this examination in Epic:Pain COMPARISON: None. FINDINGS: No fracture, subluxation or dislocation. Fairly severe joint spacenarrowing at the glenohumeral joint. Mild marginal spurring. Milddegenerative spurring at the acromioclavicular joint. No evidence oferosions. No significant soft tissue calcifications. IMPRESSION: Osteoarthritic changes at the glenohumeral joint, including severe jointspace narrowing. Fairly mild degenerative change at the acromioclavicularjoint. Ellen HILLMAN IMG XR UPPER EXTREMITY Marina l Result documented in this encounter Visit Diagnoses Diagnosis Right shoulder pain, unspecified chronicity- Primary Right shoulder pain, unspecified chronicity documented in this encounter Care Teams Map Clerk Relationship Specialty Start Date End Date Luciano Yuen DO PCP - General Internal Medicine 03/18/19 12/09/24 Luciano Yuen DO [address] [facility] [place] [address] [email or web address] PCP - General Internal Medicine 12/10/24 Kilo Horowitz MD [email or web address] Historical LMR Provider 09/06/17 Danielle Wright FNP [address] [place] [address] [email or web address] Nurse Practitioner Medical Oncology 09/07/21 Ashley Cabello MD [address] [place] [address] [address] [place] [address] [email or web address] Surgery 09/11/21 Jyoti Stone MD [address] [place] [address] [email or web address] Oncology 01/01/22 Adrianne Metha MD [address] [place] [email or web address] Primary Oncologist Medical Oncology 06/13/21 Luciano Yuen DO [address] [place] [address] [email or web address] Insurance Assigned Provider 02/21/24 11/22/24 Luciano Yuen DO [address] [place] [address] [email or web address] Insurance Assigned Provider 02/20/25 documented as of this encounter Additional Source Comments The information contained in this document represents components of the legal health record. It is not the complete legal health record.[facility]
--- OUTSIDE RECORDS SUMMARY | 2025-08-17 18:48 | XMS_ITS | Encounter Summary ---
Author Organization [facility] Address [address] [place] [address] Phone Care Team Providers Care Meter Reading Clerk Name Role Phone Kilo Horowitz MD Unavailable [email or web address] Bhavana Espinoza NP Unavailable [phone] BigLuciano quinn DO Primary Care Provider + Adrianne Mehta MD Unavailable [phone] Danielle Wright ENVIRONMENTAL HEALTH SPECIALIST Unavailable [phone] Ashley Cabello MD Unavailable Jyoti Stone MD Unavailable [phone] Adrianne Mehta MD Unavailable [phone] Luciano Yuen DO Unavailable + Luciano Yuen DO Primary Care Provider + Luciano Yuen DO Unavailable Encounter Details Date Type Department Care Team (Late st Contact Info) Description 06/15/2021 Procedure Pass [facility], [address] [address] Social History Tobacco Use Types [...] Description 09/14/2025 2:00 PM EDT Office Visit [facility] 30 [place] [address] Adrianne Mehta MD [address] [place] [email or web address] 09/28/2025 8:00 AM EST Office Visit [facility] [address] [facility] 3rd Floor, [facility] [address] [place] [address] Felix Harvey MD [address] [place] [address] 10/14/2025 8:40 AM EST Office Visit [facility] Rheumatology [address] [place] [address] Katerine Velazquez MD, MPH [address] [place] [address] documented as of this encounter Visit Diagnoses Not on filedocumented in this encounter Care Teams Meter Reading Clerk Relationship Specialty Start Date End Date Luciano Yuen DO [address] [place] [address] PCP - General Internal Medicine 03/18/19 12/09/24 Luciano Yuen DO [address] [place] [address] [place] [address] PCP - General Internal Medicine 12/10/24 Kilo Horowitz MD [email or web address] Historical LMR Provider 09/06/17 Bhavana Espinoza NP [address] [place] [address] Historical LMR Provider 09/06/17 2 Adrianne Mehta MD 30 [place] [address] [email or web address] Primary Oncologist Medical Oncology 06/13/21 06/11/22 Danielle Wright FNP [address] [place] [address] Nurse Practitioner Medical Oncology 09/07/21 Ashley Cabello MD [address] [place] [address] 8 [place] [address] General Surgery 09/11/21 Jyoti Stone MD [address] [place] [address] [email or web address] 01/01/22 Adrianne Mehta MD [address] [place] [address] [email or web address] Primary Oncologist Medical Oncology 06/13/21 Luciano Yuen DO [address] [facility] [place] [address] [email or web address] Insurance Assigned Provider 02/21/24 11/22/24 Luciano Yuen DO [address] [place] [address] [email or web address] Insurance Assigned Provider 02/20/25 documented as of this encounter Additional Source Comments The information contained in this document represents components of the legal health record. It is not the complete legal health record.[facility]
--- OUTSIDE RECORDS SUMMARY | 2025-08-17 18:48 | XMS_ITS | Encounter Summary ---
Author Organization [facility] Address [address] [place] [address] [address] [place] [address] Phone Care Team Providers Care Senior Court Office Assistant Name Role Phone Kilo Horowitz MD Unavailable [email or web address] Adrianne Mehta MD Unavailable [phone] Bhavana Espinoza ECOMMERCE ANALYST Unavailable Bigda, Luciano A DO Primary Care Provider [phone] Bigda, Luciano A DO Primary Care Provider [phone] Bigda, Luciano A DO Unavailable Adrianne Mehta MD Unavailable [phone] Danielle Wright AREA FORESTER Unavailable [phone] Ashley Cabello MD Unavailable Jyoti Stone MD Unavailable [phone] Adrianne Mehta MD Unavailable [phone] Bigda, Luciano A DO Unavailable Bigda, Luciano A DO Primary Care Provider [phone] Bigda, Luciano A DO Unavailable Encounter Details Date Type Department Care Team (Late st Contact Info) Description 03/03/2019 Procedure Pass [facility] Endoscopy Admitting Dept Virtual Department [address] [place] [address] Social History Tobacco Use Types Packs/Day [...] Description 09/14/2025 2:00 PM EDT Office Visit [facility] [address] [place] [address] Adrianne Mehta MD [address] [place] [address] 09/28/2025 8:00 AM EST Office Visit [facility] [address] [place] [address] 3rd Floor, [address] [place] [address] Felix Harvey MD [address] [place] [address] 10/14/2025 8:40 AM EST Office Visit [facility] Rheumatology [address] [place] [address] Katerine Velazquez MD, MPH [address] [place] [address] documented as of this encounter Visit Diagnoses Not on filedocumented in this encounter Care Teams Senior Court Office Assistant Relationship Specialty Start Date End Date Luciano Yuen DO [address] [place] [address] PCP - General 10/16/17 03/17/19 Luciano Yuen DO [address] [place] [address] PCP - General Internal Medicine 03/18/19 12/09/24 Luciano Yuen DO [address] [place] [address] PCP - General Internal Medicine 12/10/24 Kilo Horowitz MD [email or web address] Historical LMR Provider 09/06/17 Adrianne Mehta MD [address] [place] [address] [email or web address] Historical LMR Provider 09/06/17 06/12/21 Bhavana Espinoza NP [address] [place] [address] Historical LMR Provider 09/06/17 Luciano Yuen DO [address] [place] [address] [email or web address] Insurance Assigned Provider 03/20/19 06/12/21 Adrianne Mehta MD [address] [place] [address] [email or web address] Primary Oncologist Medical Oncology 06/13/21 06/11/22 Danielle Wright FNP 30 [place] [address] [email or web address] Nurse Practitioner Medical Oncology 09/07/21 Ashley Cabello MD [address] [place] [address] 8 [place] [address] [email or web address] General Surgery 09/11/21 Jyoti Stone MD [address] [place] [address] [email or web address] 01/01/22 Adrianne Mehta MD [address] [place] [address] @[email or web address] Primary Oncologist Medical Oncology 06/13/21 Luciano Yuen DO [address] [place] [address] [email or web address] Insurance Assigned Provider 02/21/24 11/22/24 Luciano Yuen DO [address] [place] [address] [email or web address] Insurance Assigned Provider 02/20/25 documented as of this encounter Additional Source Comments The information contained in this document represents components of the legal health record. It is not the complete legal health record.[facility]
--- OUTSIDE RECORDS SUMMARY | 2025-08-17 18:48 | XMS_ITS | Encounter Summary ---
Author Organization [facility] Address [address] [place] [address] Phone Care Team Providers Care Fish Grader Name Role Phone Kilo Horowitz MD Unavailable [email or web address] Luciano Yuen DO Primary Care Provider + Adrianne Mehta MD Unavailable [phone] Danielle Wright BRANCH SERVICE REPRESENTATIVE Unavailable [phone] Ashley Cabello MD Unavailable Jyoti Stone MD Unavailable [phone] Adrianne Mehta MD Unavailable [phone] Luciano Yuen DO Unavailable + Luciano Yuen DO Primary Care Provider + Luciano Yuen DO Unavailable + Encounter Details Date Type Department Care Team (Late st Contact Info) Description 04/29/2022 Procedure Pass [address] [address] Social History Tobacco Use Types Packs/Day Years [...] Description 09/14/2025 2:00 PM EDT Office Visit [facility] 30 [place] [address] Adrianne Mehta MD [address] [place] [address] 09/28/2025 8:00 AM EST Office Visit [facility] [address] [place] [address] 3rd Floor, [address] [address] Felix Harvey MD [address] [place] [address] [email or web address] 10/14/2025 8:40 AM EST Office Visit [facility] Rheumatology [address] [place] [address] Katerine Velazquez MD, MPH [address] [place] [address], [address] [address] [email or web address] documented as of this encounter Visit Diagnoses Not on filedocumented in this encounter Care Teams Fish Grader Relationship Specialty Start Date End Date Luciano Yuen DO PCP - General Internal Medicine 03/18/19 12/09/24 Luciano Yuen DO [address] [place] [address] [place] [address] PCP - General Internal Medicine 12/10/24 Kilo Horowitz MD [email or web address] Historical LMR Provider 09/06/17 Adrianne Mehta MD 30 [place] [address] [email or web address] Primary Oncologist Medical Oncology 06/13/21 06/11/22 Danielle Wright FNP 30 [place] [address] [email or web address] Nurse Practitioner Medical Oncology 09/07/21 Ashley Cabello MD [address] [facility] 8 [place] [address] [email or web address] General Surgery 09/11/21 Jyoti Stone MD [address] [place] [address] [email or web address] Radiation Oncology 01/01/22 Adrianne Mehta MD 30 [place] [address] [email or web address] Primary Oncologist Medical Oncology 06/13/21 Luciano Yuen DO [address] [place] [address] Insurance Assigned Provider 02/21/24 11/22/24 Luciano Yuen DO [address] [place] [address] [email or web address] Insurance Assigned Provider 02/20/25 documented as of this encounter Additional Source Comments The information contained in this document represents components of the legal health record. It is not the complete legal health record.[facility]
--- OUTSIDE RECORDS SUMMARY | 2025-08-17 18:48 | XMS_ITS | Encounter Summary ---
Author Organization [facility] Address [address] [place] [address] [place] [address] Phone Care Team Providers Care Cut Off Man Name Role Phone Kilo Horowitz MD Unavailable [email or web address] Luciano Yuen DO Primary Care Provider [phone] Danielle Wright SOCK KNITTING MACHINE OPERATOR Unavailable [phone] Ashley Cabello MD Unavailable Jyoti Stone MD Unavailable [phone] Adrianne Mehta MD Unavailable [phone] Alpa, Luciano Jin DO Unavailable Luciano Yuen DO Primary Care Provider [phone] Bigda, Luciano A DO Unavailable Encounter Details Date Type Department Care Team (Latest Contact Info) Description 05/14/2023 Ancillary Orders [facility], X-Ray - [facility] [address] [place] [address] Ellen Johnson PA [address] [place] [address] [address] [place], [place] [phone] Arthritis, juvenile rheumatoid, polyarticular Social History Tobacco Use Types Packs/Day Years Used Date Smoking Tobacco: Former Cigarettes 0.8 5 1 988 - 1992 Smokeless Tobacco: Never Alcohol Use Standard Drinks/Week Comments Yes 1 (1 standard drink = 0.6 oz pure alcohol) occasional glass of wine every few months Education Answer Date Recorded Are you interested [...] Visit [facility] at [address] [address] Adrianne Mehta MD [address] [place] [address] 09/28/2025 8:00 AM EST Office Visit [facility] [address] [place] 3rd Floor, [address] [place] [address] Felix Harvey MD [address] [place] [address] 10/14/2025 8:40 AM EST Office Visit [facility] Rheumatology [address] [place] [address] Katerine Velazquez MD, MPH [address] [place] [address], [address] [address] documented as of this encounter Results * XR FOOT 3 OR MORE VIEWS (LEFT) (05/14/2023 10:46 AM EDT) Anatomical Region Laterality Modality Foot Left Computed Radiogr aphy 05/15/2023 12:5 3 AM EDT Impressions 05/15/2023 12:54 AM EDT Mild to moderate mid and forefoot degenerative change. No findings to suggest active inflammatory arthropathy. Narrative 05/15/2023 12:54 AM EDT XR FOOT 3 OR MORE VIEWS (LEFT) COMPARISON: None FINDINGS: Bones demineralized. No acute fracture or dislocation. No subluxation. No significant soft tissue swelling. Mild to moderate joint space narrowing at the tarsometatarsal and interphalangeal joints. No periarticular bone loss or erosion. Calcific enthesopathy of the Achilles tendon attachment with associated plantar calcaneal spur. Procedure Note Violet To MD - 05/15/2023 XR FOOT 3 OR MORE VIEWS (LEFT) COMPARISON: None FINDINGS: Bones demineralized. No acute fracture or dislocation. No subluxation. Nosignificant soft tissue swelling. Mild to moderate joint space narrowingat the tarsometatarsal and interphalangeal joints. No periarticular boneloss or erosion. Calcific enthesopathy of the Achilles tendon attachment with associatedplantar calcaneal spur. IMPRESSION: Mild to moderate mid and forefoot degenerative change. No findings to suggest active inflammatory arthropathy. Ellen HILLMAN IMG XR LOWER EXTREMITY Marina l Result * XR FOOT 3 OR MORE VIEWS (RIGHT) (05/14/2023 10:45 AM EDT) Anatomical Region Laterality Modality Foot Right Computed Radiogr aphy 05/15/2023 12:5 2 AM EDT Impressions 05/15/2023 12:53 AM EDT Oblique fracture through the fourth proximal phalangeal diaphysis with mild apex medial angulation. Narrative 05/15/2023 12:53 AM EDT XR FOOT 3 OR MORE VIEWS (RIGHT) COMPARISON: None FINDINGS: Bones demineralized. There is an oblique fracture through the fourth proximal phalangeal diaphysis without intra-articular involvement and overlying soft tissue swelling. There is mild apex medial angulation. No additional fractures. Mild interphalangeal and first metatarsophalangeal joint space narrowing. Mild dorsal spurring at the talonavicular joint. Calcific enthesopathy of the Achilles tendon attachment with associated plantar calcaneal spur. Procedure Note Violet To MD - 05/15/2023 XR FOOT 3 OR MORE VIEWS (RIGHT) COMPARISON: None FINDINGS: Bones demineralized. There is an oblique fracture through the fourthproximal phalangeal diaphysis without intra-articular involvement andoverlying soft tissue swelling. There is mild apex medial angulation. Noadditional fractures. Mild interphalangeal and first metatarsophalangealjoint space narrowing. Mild dorsal spurring at the talonavicular joint. Calcific enthesopathy of the Achilles tendon attachment with associatedplantar calcaneal spur. IMPRESSION: Oblique fracture through the fourth proximal phalangeal diaphysis withmild apex medial angulation. Ellen HILLMAN IMG XR LOWER EXTREMITY Marina l Result documented in this encounter Visit Diagnoses Diagnosis Arthritis, juvenile rheumatoid, polyarticular Polyarticular juvenile rheumatoid arthritis, acute Arthritis, juvenile rheumatoid, polyarticular Polyarticular juvenile rheumatoid arthritis, acute Arthritis, juvenile rheumatoid, polyarticular Polyarticular juvenile rheumatoid arthritis, acute documented in this encounter Care Teams Cut Off Man Relationship Specialty Start Date End Date Luciano Yuen DO PCP - General Internal Medicine 03/18/19 12/09/24 Luciano Yuen DO [address] [place] [address] PCP - General Internal Medicine 12/10/24 Kilo Horowitz MD [email or web address] Historical LMR Provider 09/06/17 Danielle Wright FNP 30 [place] [address] Nurse Practitioner Medical Oncology 09/07/21 Ashley Cabello MD [address] [place] [address] 8 [place] [address] [email or web address] General Surgery 09/11/21 Jyoti Stone MD [address] [place] [address] [email or web address] Radiation Oncology 01/01/22 Adrianne Mehta MD [address] [place] [address] [email or web address] Primary Oncologist Medical Oncology 06/13/21 Luciano Yuen DO [address] [place] [address] Insurance Assigned Provider 02/21/24 11/22/24 Luciano Yuen DO [address] [place] [address] Insurance Assigned Provider 02/20/25 documented as of this encounter Additional Source Comments The information contained in this document represents components of the legal health record. It is not the complete legal health record.[facility]
--- OUTSIDE RECORDS SUMMARY | 2025-08-17 18:48 | XMS_ITS | Encounter Summary ---
Author Organization [facility] Address [address] [place] [address] [address] [place] [address] Phone Care Team Providers Care Diamond Selector Name Role Phone Kilo Horowitz MD Unavailable [email or web address] Luciano Yuen DO Primary Care Provider [phone] Danielle Wright CLAIMS CONFIGURATION ANALYST Unavailable [phone] Ashley Cabello MD Unavailable Jyoti Stone MD Unavailable [phone] Adrianne Mehta MD Unavailable [phone] Luciano Yuen DO Unavailable Luciano Yuen DO Primary Care Provider + Bigda, Luciano Jin DO Unavailable Encounter Details Date Type Department Care Team (Late st Contact Info) Description 02/02/2024 Procedure Pass [facility], [address] [address] Social History Tobacco Use Types Packs/Day Years [...] PM EDT Office Visit [facility] at [address] [address] Adrianne Mehta MD [address] [place] [address] 09/28/2025 8:00 AM EST Office Visit [facility] [address] [place] [address] 3rd Floor, [address] [address] Felix Harvey MD [address] [place] [address] 10/14/2025 8:40 AM EST Office Visit [facility]ology [address] [place] [address] Katerine Velazquez MD, MPH [address] [place] [address] documented as of this encounter Visit Diagnoses Not on filedocumented in this encounter Care Teams Diamond Selector Relationship Specialty Start Date End Date Luciano Yuen DO PCP - General Internal Medicine 03/18/19 12/09/24 Luciano Yuen DO [address] [place] [address] [place] [address] [email or web address] PCP - General Internal Medicine 12/10/24 Kilo Horowitz MD [email or web address] Historical LMR Provider 09/06/17 Danielle Wright FNP [address] [place] [address] [email or web address] Nurse Practitioner Medical Oncology 09/07/21 Ashley Cabello MD [address] [place] [address] [email or web address] General Surgery 09/11/21 Jyoti Stone MD [address] [place] [address] [email or web address] Radiation Oncology 01/01/22 Adrianne Mehta MD [address] [place] [address] [email or web address] Primary Oncologist Medical Oncology 06/13/21 Luciano Yuen DO [address] [place] [address] [email or web address] Insurance Assigned Provider 02/21/24 11/22/24 Luciano Yuen DO [address] [place] [address] [email or web address] Insurance Assigned Provider 02/20/25 documented as of this encounter Additional Source Comments The information contained in this document represents components of the legal health record. It is not the complete legal health record.[facility]
--- OUTSIDE RECORDS SUMMARY | 2025-08-17 18:48 | XMS_ITS | Encounter Summary ---
Author Organization [facility] Address [address] [place] [address] [address] [place] [address] Phone Care Team Providers Care Fountain Attendant Name Role Phone Kilo Horowitz MD Unavailable [email or web address] Adrianne Mehta MD Unavailable Bhavana Espinoza NP Unavailable Bigda, Luciano A DO Primary Care Provider [phone] Bigda, Luciano A DO Unavailable Adrianne Mehta MD Unavailable Danielle Wright HELP DESK ASSISTANT Unavailable Ashley Cabello MD Unavailable Jyoti Stone MD Unavailable + Adrianne Mehta MD Unavailable Bigda, Luciano A DO Unavailable Bigda, Luciano A DO Primary Care Provider [phone] Bigda, Luciano A DO Unavailable Encounter Details Date Type Department Care Team (Late st Contact Info) Description 05/04/2019 Procedure Pass [facility]oscopy Admitting Dept [facility] Department [address] [place] [address] [phone] Social History Tobacco Use Types Packs/Day Years [...] Description 09/14/2025 2:00 PM EDT Office Visit [facility] 30 [place] [address] Adrianne Mehta MD [address] [place] [address] 09/28/2025 8:00 AM EST Office Visit [facility] [address] [place] [address] 3rd Floor, [address] [address] Felix Harvey MD [address] [place] [address] 10/14/2025 8:40 AM EST Office Visit [facility] Rheumatology [address] [place] [address] Katerine Velazquez MD, MPH [address] [place] [address] documented as of this encounter Visit Diagnoses Not on filedocumented in this encounter Care Teams Fountain Attendant Relationship Specialty Start Date End Date Luciano Yuen DO [address] [place] [address] PCP - General Internal Medicine 03/18/19 12/09/24 Luciano Yuen DO [address] [place] [address] [place] [address] PCP - General Internal Medicine 12/10/24 Kilo Horowitz MD [email or web address] Historical LMR Provider 09/06/17 Adrianne Mehta MD [address] [place] [address] [email or web address] Historical LMR Provider 09/06/17 06/12/21 Bhavana Espinoza NP [address] [place] [address] Historical LMR Provider 09/06/17 2 Luciano Yuen DO [address] [place] [address] [email or web address] Insurance Assigned Provider 03/20/19 06/12/21 Adrianne Mehta MD 30 [place] [address] Primary Oncologist Medical Oncology 06/13/21 06/11/22 Danielle Wright, KHADRA [address] [place] [address] Nurse Practitioner Medical Oncology 09/07/21 Ashley Cabello MD [address] [place] [address] 8 [place] [address] [email or web address] General Surgery 09/11/21 Jyoti Stone MD [address] [place] [address] [email or web address] Radiation Oncology 01/01/22 Adrianne Mehta MD [address] [place] [address] [email or web address] Primary Oncologist Medical Oncology 06/13/21 Luciano Yuen DO [address] [place] [address] [email or web address] Insurance Assigned Provider 02/21/24 11/22/24 Luciano Yuen DO [address] [place] [address] [email or web address] Insurance Assigned Provider 02/20/25 documented as of this encounter Additional Source Comments The information contained in this document represents components of the legal health record. It is not the complete legal health record.[facility]
--- OUTSIDE RECORDS SUMMARY | 2025-08-17 18:48 | XMS_ITS | Encounter Summary ---
Author Organization [facility] Address [address] [place] [address] [address] [place] [address] Phone Care Team Providers Care Programmer Operator Numerical Control Name Role Phone Kilo Horowitz MD Unavailable [email or web address] Adrianne Mehta MD Unavailable Bhavana Espinoza NP Unavailable Bigda, Luciano A DO Primary Care Provider [phone] Bigda, Luciano A DO Unavailable Adrianne Mehta MD Unavailable Danielle Wright RADIOLOGY CT TECHNOLOGIST Unavailable Ashley Cabello MD Unavailable Jyoti Stone MD Unavailable + Adrianne Mehta MD Unavailable Bigda, Luciano A DO Unavailable Bigda, Luciano A DO Primary Care Provider [phone] Bigda, Luciano A DO Unavailable Encounter Details Date Type Department Care Team (Late st Contact Info) Description 03/18/2019 Procedure Pass [facility], [address] [address] Social History Tobacco Use Types Packs/Day Years [...] Description 09/14/2025 2:00 PM EDT Office Visit [facility] [address] [place] [address] Adrianne Mehta MD [address] [place] [address] [email or web address] 09/28/2025 8:00 AM EST Office Visit [facility] [address] [place] [address] 3rd Floor, [address] [address] Felix Harvey MD [address] [place] [address] 10/14/2025 8:40 AM EST Office Visit [facility] Rheumatology [address] [place] [address] Katerine Velazquez MD, MPH [address] [place] [address] documented as of this encounter Visit Diagnoses Not on filedocumented in this encounter Care Teams Programmer Operator Numerical Control Relationship Specialty Start Date End Date Luciano Yuen DO [address] [place] [address] [email or web address] PCP - General Internal Medicine 03/18/19 12/09/24 Luciano Yuen DO [address] [place] [address] [place] [address] PCP - General Internal Medicine 12/10/24 Kilo Horowitz MD [email or web address] LMR Provider 09/06/17 Adrianne Mehta MD [address] [place] [address] [email or web address] Historical LMR Provider 09/06/17 06/12/21 Bhavana Espinoza NP [address] [place] [address] Historical LMR Provider 09/06/17 2 Luciano Yuen DO [address] [place] [address] [email or web address] Insurance Assigned Provider 03/20/19 06/12/21 Adrianne Mehta MD 30 [place] [address] Primary Oncologist Medical Oncology 06/13/21 06/11/22 Danielle Wright, RADIOLOGY CT TECHNOLOGIST 30 [place] [address] Nurse Practitioner Medical Oncology 09/07/21 Ashley Cabello MD 264 [facility] 8 [place] [address] [email or web address] General Surgery 09/11/21 Jyoti Stone MD [address] [place] [address] [email or web address] Radiation Oncology 01/01/22 Adrianne Mehta MD [address] [place] [address] [email or web address] Primary Oncologist Medical Oncology 06/13/21 Luciano Yuen DO [address] [place] [address] [email or web address] Insurance Assigned Provider 02/21/24 11/22/24 Luciano Yuen DO [address] [place] [address] [email or web address] Insurance Assigned Provider 02/20/25 documented as of this encounter Additional Source Comments The information contained in this document represents components of the legal health record. It is not the complete legal health record.[facility]
--- OUTSIDE RECORDS SUMMARY | 2025-08-17 18:48 | XMS_ITS | Encounter Summary ---
Author Organization [facility] Address [address] [place] [address] Phone Care Team Providers Care Fountain Attendant Name Role Phone Kilo Horowitz MD Unavailable [email or web address] Bhavana Espinoza NP Unavailable [phone] Luciano Yuen DO Primary Care Provider [phone] Adrianne Mehta MD Unavailable [phone] Danielle Wright BUSINESS DEPARTMENT CHAIR Unavailable Ashley Cabello MD Unavailable Jyoti Stone MD Unavailable [phone] Adrianne Mehta MD Unavailable Luciano Yuen DO Unavailable Luciano Yuen DO Primary Care Provider [phone] Luciano Yuen DO Unavailable Encounter Details Date Type Department Care Team (Late st Contact Info) Description 06/15/2021 Ancillary Orders Virtual Department [address] [place] [address] Luciano Yuen DO [address] [place] [address] [email or web address] Breast screening Social History Tobacco Use Types [...] Description 09/14/2025 2:00 PM EDT Office Visit [facility] 30 [place] [address] Adrianne Mehta MD [address] [place] [address] 09/28/2025 8:00 AM EST Office Visit [facility] [address] [place] [address] 3rd Floor, [address] [address] Felix Harvey MD [address] [place] [address] 10/14/2025 8:40 AM EST Office Visit [facility] Rheumatology [address] [place] [address] Katerine Velazquez MD, MPH [address] [place] [address] documented as of this encounter Visit Diagnoses Diagnosis Breast screening Breast screening, unspecified documented in this encounter Care Teams Fountain Attendant Relationship Specialty Start Date End Date Luciano Yuen DO [address] [place] [address] PCP - General Internal Medicine 03/18/19 12/09/24 Luciano Yuen DO [address] [place] [address] [email or web address] PCP - General Internal Medicine 12/10/24 Kilo Horowitz MD [email or web address] Historical LMR Provider 09/06/17 Olga Bhavana JEANNINE Willams [address] [place] [address] Historical LMR Provider 09/06/17 2 Adrianne Mehta MD 30 [place] [address] [email or web address] Primary Oncologist Medical Oncology 06/13/21 06/11/22 Danielle Wright FNP 30 [place] [address] [email or web address] Nurse Practitioner Medical Oncology 09/07/21 Ashley Cabello MD [address] [place] [address] 8 [place] [address] General Surgery 09/11/21 Jyoti Stone MD [address] [place] [address] [email or web address] Oncology 01/01/22 Adrianne Mehta MD 30 [place] [address] Primary Oncologist Medical Oncology 06/13/21 Luciano Yuen DO 179 [facility] [place] [address] [email or web address] Insurance Assigned Provider 02/21/24 11/22/24 Luciano Yuen DO [address] [place] [address] [email or web address] Insurance Assigned Provider 02/20/25 documented as of this encounter Additional Source Comments The information contained in this document represents components of the legal health record. It is not the complete legal health record.[facility]
--- OUTSIDE RECORDS SUMMARY | 2025-08-17 18:48 | XMS_ITS | Encounter Summary ---
Author Organization [facility] Address [address] [place] [address] Phone Care Team Providers Care Rn Shift Mgr Name Role Phone Kilo Horowitz MD Unavailable [email or web address] Bhavana Espinoza NP Unavailable [phone] Luciano Yuen DO Primary Care Provider + Adrianne Mehta MD Unavailable [phone] Danielle Wright ONLINE MARKETING DIRECTOR Unavailable [phone] Ashley Cabello MD Unavailable Jyoti Stone MD Unavailable [phone] Adrianne Mehta MD Unavailable [phone] Luciano Yuen DO Unavailable + Luciano Yuen DO Primary Care Provider + Luciano Yuen DO Unavailable Encounter Details Date Type Department Care Team (Late st Contact Info) Description 08/30/2021 Procedure Pass [place] Admitting Dept - Virtual Department 30 [place] [address] Social History Tobacco Use Types Packs/Day Years Used Date Smoking Tobacco: Former Cigarettes 0.8 5 1 8 - 1992 Smokeless Tobacco: Never Alcohol Use Standard Drinks/Week Comments Not Currently 0 (1 standard drink = 0.6 oz pur e alcohol) 1 drink every few months Comments No Sex and Gender Information Value Date Recorded Sex Assigned at Not on file Legal Sex Female 9:48 PM EDT Gender Identity Not on file Sexual Orientation Not on file documented as of this encounter Functional Status * Calculated C-SSRS Risk Score (Lifetime/Recent) Answer Date of Assessment Author No Risk Indicated 08/30/2021 8:17 AM EDT Leeanne Galarza RN * [place] Suicide Severity Rating Scale (Screener/Recent Self-Report) Question Answer Date of Assessment Author 2. Non-Specific Active Suici malina Thoughts (Past 1 Month) No 08/30/2021 8:17 AM EDT Ashleigh Mills RN documented as of this encounter Plan of Treatment Upcoming Encounters Date Type Department Care Team (Late st Contact Info) Description 09/14/2025 2:00 PM EDT Office Visit [facility] at [address] [address] Adrianne Mehta MD [address] [place] [address] [email or web address] 09/28/2025 8:00 AM EST Office Visit [facility] [address] [place] [address] 3rd Floor, [address] [address] Felix Harvey MD [address] [place] [address] 10/14/2025 8:40 AM EST Office Visit [facility] Rheumatology [address] [place] [address] Katerine Velazquez MD, MPH [address] [place] [address] documented as of this encounter Visit Diagnoses Not on filedocumented in this encounter Care Teams Rn Shift Mgr Relationship Specialty Start Date End Date Luciano Yuen DO [address] [place] [address] [email or web address] PCP - General Internal Medicine 03/18/19 12/09/24 Luciano Yuen DO [address] [place] [address] [place] [address] PCP - General Internal Medicine 12/10/24 Kilo Horowitz MD [email or web address] Historical LMR Provider 09/06/17 Bhavana Espinoza NP [address] [place] [address] Historical LMR Provider 09/06/17 Adrianne Mehta MD [address] [place] [address] [email or web address] Primary Oncologist Medical Oncology 06/13/21 06/11/22 Danielle Wright FNP 30 [place] [address] [email or web address] Nurse Practitioner Medical Oncology 09/07/21 Ashley Cabello MD [address] [place] [address] 8 [place] [address] [email or web address] General Surgery 09/11/21 Jyoti Stone MD [address] [place] [address] [email or web address] Oncology 01/01/22 Adrianne Mehta MD 30 [place] [address] [email or web address] Primary Oncologist Medical Oncology 06/13/21 Luciano Yuen DO 179 [place] [address] Insurance Assigned Provider 02/21/24 11/22/24 Luciano Yuen DO 179 [place] [address] Insurance Assigned Provider 02/20/25 documented as of this encounter Additional Source Comments The information contained in this document represents components of the legal health record. It is not the complete legal health record.[facility]
--- OUTSIDE RECORDS SUMMARY | 2025-08-17 18:48 | XMS_ITS | Encounter Summary ---
Author Organization [facility] Address [address] [place] [address] Phone Care Team Providers Care Block Layer Name Role Phone Kilo Horowitz MD Unavailable [email or web address] Bhavana Espinoza NP Unavailable [phone] BigLuciano quinn A DO Primary Care Provider [phone] Adrianne Mehta MD Unavailable Danielle Wright FOUNDRY MELT SUPERVISOR Unavailable Ashley Cabello MD Unavailable Jyoti Stone MD Unavailable [phone] Adrianne Mehta MD Unavailable [phone] BigLuciano quinn DO Unavailable BigLuciano quinn A DO Primary Care Provider [phone] Bigda, Luciano A DO Unavailable Encounter Details Date Type Department Care Team (Latest Contact Info) Description 07/19/2021 Transcribe Orders Virtual Department 30 [place] [address] Ellen Johnson PA [address] [place] [address] [place] [address] Painful micturition, unspecified (Primary Dx); Pelvic and perineal pain Social History Tobacco Use Types Packs/Day Years [...] [facility] at [address] [address] Adrianne Mehta MD [address] [place] [address] [email or web address] 09/28/2025 8:00 AM EST Office Visit [facility] [address] [place] [address] 3rd Floor, [address] [place] [address] Felix Harvey MD [address] [place] [address] 10/14/2025 8:40 AM EST Office Visit [facility] Rheumatology [address] [place] [address] Katerine Velazquez MD, MPH [address] [place] [address], [address] [address] documented as of this encounter Results * US PELVIS TRANSABDOMINAL PLUS TRANSVAGINAL (08/02/2021 12:12 PM EDT) Anatomical Region Laterality Modality Pelvis, Uterus/Adnexa Ultrasound 08/02/2021 2:20 PM EDT Impressions 08/02/2021 2:22 PM EDT No abnormalities on pelvic ultrasound. Narrative 08/02/2021 2:22 PM EDT HISTORY: Left flank, pelvic and perineal pain. EXAM: Transabdominal and transvaginal pelvic ultrasounds. COMPARISON: None FINDINGS: Uterus: Uterus is normal in size and echogenicity. It measures 8.3 cm x 3.8 cm x 3.7 cm. Endometrial stripe normal measuring 3 mm in thickness. No evidence of uterine masses. Ovaries: Neither ovary is visualized. No evidence of adnexal masses. Other: No evidence of free fluid or other pelvic masses. Procedure Note Burton Zamora MD - 08/02/2021 HISTORY: Left flank, pelvic and perineal pain. EXAM: Transabdominal and transvaginal pelvic ultrasounds. COMPARISON: None FINDINGS: Uterus: Uterus is normal in size and echogenicity. It measures 8.3 cm x3.8 cm x 3.7 cm. Endometrial stripe normal measuring 3 mm in thickness. Noevidence of uterine masses. Ovaries: Neither ovary is visualized. No evidence of adnexal masses. Other: No evidence of free fluid or other pelvic masses. IMPRESSION: No abnormalities on pelvic ultrasound. us Ellen [facility] US PELVIS Final Resul t * US Kidneys and Bladder (08/02/2021 12:11 PM EDT) Anatomical Region Laterality Modality Abdomen, Kidney Ultrasound 08/02/2021 2:22 PM EDT Impressions 08/02/2021 2:24 PM EDT 1. Mild pelvocaliectasis on the left compared with the right. Otherwise, normal study of the kidneys. 2. No definite bladder abnormalities. Narrative 08/02/2021 2:24 PM EDT HISTORY: Left flank, pelvic and perineal pain. COMPARISON: None. FINDINGS: Right Kidney: The kidney is normal in size and echogenicity. It measures 11.4 cm in the long axis. No evidence of masses, calculi, pelvocaliectasis or significant cortical thinning. Left Kidney: The kidney is normal in size and echogenicity. It measures 11.9 cm in the long axis. Very mild pelvocaliectasis compared with the right. This is present prior to and following voiding. No evidence of masses or calculi. No evidence of significant cortical thinning. Bladder: The bladder slightly under distended with a pre-void bladder volume measuring 244 cc. The bladder is normal in configuration. Neither ureteral jet is visualized. No evidence of filling defects within the bladder lumen. Post void residual measures 7 cc. Procedure Note Burton Zamora MD - 08/02/2021 HISTORY: Left flank, pelvic and perineal pain. COMPARISON: None. FINDINGS: Right Kidney: The kidney is normal in size and echogenicity. It pmfuvxwp56.4 cm in the long axis. No evidence of masses, calculi, pelvocaliectasisor significant cortical thinning. Left Kidney: The kidney is normal in size and echogenicity. It efkydgad28.9 cm in the long axis. Very mild pelvocaliectasis compared with theright. This is present prior to and following voiding. No evidence ofmasses or calculi. No evidence of significant cortical thinning. Bladder: The bladder slightly under distended with a pre-void bladdervolume measuring 244 cc. The bladder is normal in configuration. Neitherureteral jet is visualized. No evidence of filling defects within thebladder lumen. Post void residual measures 7 cc. IMPRESSION: 1. Mild pelvocaliectasis on the left compared with the right. Otherwise,normal study of the kidneys. 2. No definite bladder abnormalities. Ellen [facility] Final Resul t documented in this encounter Visit Diagnoses Diagnosis Painful micturition, unspecified- Primary Pelvic and perineal pain Pelvic and perineal pain Painful micturition, unspecified documented in this encounter Care Teams Block Layer Relationship Specialty Start Date End Date Luciano Yuen DO [address] [place] [address] PCP - General Internal Medicine 03/18/19 12/09/24 Luciano Yuen DO [facility] [place] [address] [email or web address] PCP - General Internal Medicine 12/10/24 Kilo Horowitz MD [email or web address] Historical LMR Provider 09/06/17 Bhavana Espinoza NP [address] [place] [address] Historical LMR Provider 09/06/17 2 Adrianne Mehta MD 30 [place] [address] [email or web address] Primary Oncologist Medical Oncology 06/13/21 06/11/22 Danielle Wright FNP 30 [place] [address] Nurse Practitioner Medical Oncology 09/07/21 Ashley Cabello MD [address] [place] [address] 8 [place] [address] [email or web address] General Surgery 09/11/21 Jyoti Stone MD [address] [place] [address] [email or web address] Radiation Oncology 01/01/22 Adrianne Mehta MD 30 [place] [address] [email or web address] Primary Oncologist Medical Oncology 06/13/21 Luciano Yuen DO [address] [place] [address] Insurance Assigned Provider 02/21/24 11/22/24 Luciano Yuen DO [address] [place] [address] Insurance Assigned Provider 02/20/25 documented as of this encounter Additional Source Comments The information contained in this document represents components of the legal health record. It is not the complete legal health record.[facility]
--- OUTSIDE RECORDS SUMMARY | 2025-08-17 18:48 | XMS_ITS | Encounter Summary ---
Author Organization [facility] Address [address] [place] [address] [address] [place] [address] Phone Care Team Providers Care Vp Software Name Role Phone Kilo Horowitz MD Unavailable [email or web address] Luciano Yuen DO Primary Care Provider [phone] Danielle Wright PROMOTION OFFICER Unavailable [phone] Ashley Cabello MD Unavailable Jyoti Stone MD Unavailable [phone] Adrianne Mehta MD Unavailable [phone] [place]cheyenne, Luciano Jin DO Unavailable Bigcheyenne, Luciano Jin DO Primary Care Provider + Bigda, Luciano A DO Unavailable Reason for Referral * MRI/CAT Scan - Closed Specialty Diagnoses / Procedures Referred By Contac t Referred To Contact Radiology Diagnoses Right shoulder pain, unspecified chronicity Procedures MRI Shoulder (Right) Ellen Johnson PA [address] [facility] [place] [address] [place] [address] Phone: tel: fax: Referral ID Status Reason Start Date Expiration Date Visits Re quested Visits Authorized [id number] Closed 02/02/2024 02/01/2025 1 1 Encounter Details Date Type Department Care Team (Latest Contact Info) Description 02/02/2024 Transcribe Orders Virtual Department [address] [place] [address] Ellen Johnson PA [address] [facility] [place] [address] [place] [address] Right shoulder pain, unspecified chronicity (Primary Dx) [...] Description 09/14/2025 2:00 PM EDT Office Visit [facility] [address] [place] [address] Adrianne Mehta MD [address] [place] [address] 09/28/2025 8:00 AM EST Office Visit [facility] [address] [place] [address] 3rd Floor, [address] [place] [address] Felix Harvey MD [address] [place] [address], [address] [address] 10/14/2025 8:40 AM EST Office Visit [facility] Rheumatology [address] [place] [address] Katerine Velazquez MD, MPH [address] [facility], [address] [place] [address] documented as of this encounter Results * MRI SHOULDER WITHOUT CONTRAST (RIGHT) (03/14/2024 7:21 AM EDT) Anatomical Region Laterality Modality Shoulder Right Magnetic Resonan ce 03/15/2024 5:49 PM EDT Impressions 03/16/2024 5:19 PM EDT 1. Severe arthritic change about the glenohumeral joint. 2. Diffuse labral tearing. 3. No evidence of rotator cuff tear. 4. Subluxation of tendon of the long head of the biceps, perched upon anterior lip of the bicipital groove, exhibiting diffuse tendinopathy, without full-thickness disruption. Narrative 03/16/2024 5:19 PM EDT MRI SHOULDER WITHOUT CONTRAST (RIGHT) Referring clinician's provided indication for this examination in Epic: Outside Radiology Order; right shoulder pain Additional clinical information: Right shoulder pain with decreased range of motion. Previous shoulder surgery. TECHNIQUE: Multi-sequence, multi-planar MRI of the shoulder without intravenous contrast. COMPARISON: Plain films right shoulder 01/26/2024. FINDINGS: Coracoacromial Arch: Mild degenerative change about normally aligned AC joint. Mild joint space irregularity and fluid bright signal intra-articularly. No downward spurring. Rotator Cuff: Altered signal affects distal fibers of the subscapularis tendon without discrete tear. No tear identified affecting supra spinatus, infraspinatus and teres minor tendons. Normal muscle signal maintained. Glenoid Labrum and Biceps Tendon: Diffuse alteration in labral signal. No separation of biceps tendon anchor. Tendon of the long head of the biceps is perched upon anterior lip of the bicipital groove and exhibits focal tendon thickening. No complete disruption. Tracking of fluid bright signal from joint spaces into biceps tendon sheath. Bones: Subchondral signal changes affect the humeral head maximal superior medially and affect the bony glenoid midportion and inferiorly. Remodeling of glenoid fossa and medial humeral head. Moderate to large inferior medial humeral head osteophyte. Glenohumeral Joint: Diffuse loss of hyaline cartilage overlying the humeral head and throughout the glenoid fossa with concomitant remodeling of bone and reactive marrow changes. Soft tissues: 2.0 x 2.5 x 5.5 cm lipoma is interposed between the metadiaphyseal region of the proximal humerus and overlying deltoid muscle. Procedure Note Duy Fink MD - 03/16/2024 MRI SHOULDER WITHOUT CONTRAST (RIGHT) Referring clinician's provided indication for this examination in Epic:Outside Radiology Order; right shoulder pain Additional clinical information: Right shoulder pain with decreased rangeof motion. Previous shoulder surgery. TECHNIQUE: Multi-sequence, multi-planar MRI of the shoulder withoutintravenous contrast. COMPARISON: Plain films right shoulder 01/26/2024. FINDINGS: Coracoacromial Arch: Mild degenerative change about normally aligned ACjoint. Mild joint space irregularity and fluid bright signalintra-articularly. No downward spurring. Rotator Cuff: Altered signal affects distal fibers of the subscapularistendon without discrete tear. No tear identified affecting supra spinatus,infraspinatus and teres minor tendons. Normal muscle signal maintained. Glenoid Labrum and Biceps Tendon: Diffuse alteration in labral signal. Noseparation of biceps tendon anchor. Tendon of the long head of the bicepsis perched upon anterior lip of the bicipital groove and exhibits focaltendon thickening. No complete disruption. Tracking of fluid bright signalfrom joint spaces into biceps tendon sheath. Bones: Subchondral signal changes affect the humeral head maximal superiormedially and affect the bony glenoid midportion and inferiorly. Remodelingof glenoid fossa and medial humeral head. Moderate to large inferiormedial humeral head osteophyte. Glenohumeral Joint: Diffuse loss of hyaline cartilage overlying thehumeral head and throughout the glenoid fossa with concomitant remodelingof bone and reactive marrow changes. Soft tissues: 2.0 x 2.5 x 5.5 cm lipoma is interposed between themetadiaphyseal region of the proximal humerus and overlying deltoidmuscle. IMPRESSION: 1. Severe arthritic change about the glenohumeral joint. 2. Diffuse labral tearing. 3. No evidence of rotator cuff tear. 4. Subluxation of tendon of the long head of the biceps, perched uponanterior lip of the bicipital groove, exhibiting diffuse tendinopathy,without full-thickness disruption. Ellenchris Feng Alex HILLMAN IMG MR EXTREMITY Final Resu lt documented in this encounter Visit Diagnoses Diagnosis Right shoulder pain, unspecified chronicity- Primary Right shoulder pain, unspecified chronicity documented in this encounter Care Teams Vp Software Relationship Specialty Start Date End Date Luciano Yuen DO PCP - General Internal Medicine 03/18/19 12/09/24 Luciano Yuen DO [address] [place] [address] [place] [address] PCP - General Internal Medicine 12/10/24 Kilo Horowitz MD [email or web address] Historical LMR Provider 09/06/17 Danielle Wright FNP [address] [place] [address] Nurse Practitioner Medical Oncology 09/07/21 Ashley Cabello MD [address] [place] [address] 8 [place] [address] General Surgery 09/11/21 Jyoti Stone MD [address] [place] [address] [email or web address] Oncology 01/01/22 Adrianne Mehta MD [address] [place] [address] Primary Oncologist Medical Oncology 06/13/21 Luciano Yuen DO [address] [place] [address] Insurance Assigned Provider 02/21/24 11/22/24 Luciano Yuen DO [address] [place] [address] Insurance Assigned Provider 02/20/25 documented as of this encounter Additional Source Comments The information contained in this document represents components of the legal health record. It is not the complete legal health record.[facility]
--- OUTSIDE RECORDS SUMMARY | 2025-08-17 18:48 | XMS_ITS | Encounter Summary ---
Author Organization [facility] Address [address] [place] [address] Phone Care Team Providers Care Resort Keeper Name Role Phone Kilo Horowitz MD Unavailable [email or web address] Bhavana Espinoza NP Unavailable [phone] Luciano Yuen DO Primary Care Provider + Adrianne Mehta MD Unavailable [phone] Danielle Wright MULTISKILL OPERATOR Unavailable [phone] Ashley Cabello MD Unavailable Jyoti Stone MD Unavailable [phone] Adrianne Mehta MD Unavailable [phone] Luciano Yuen DO Unavailable + Luciano Yuen DO Primary Care Provider + Luciano Yuen DO Unavailable + Reason for Referral * Outpatient Procedure - Closed Specialty Diagnoses / Procedures Referred By Yolanda an Referred To Contact Radiology Diagnoses Abnormal mammogram Procedures Mammogram Needle Localization (Left) Ashley Cabello MD Phone: tel: fax: mailto: Referral ID Status Reason Start Date Expiration Date Visits Re quested Visits Authorized [id number] Closed 08/06/2021 08/06/2022 1 1 Encounter Details Date Type Department Care Team (Latest Contact Info) Description 08/06/2021 Transcribe Orders Virtual Department [address] [place] [address] Ashley Cabello MD [address] [place] [address], [address] [place] [address] Abnormal mammogram (Primary Dx) Social History Tobacco Use Types [...] Description 09/14/2025 2:00 PM EDT Office Visit [facility] [address] [place] [address] Adrianne Mehta MD 30 [place] [address] 09/28/2025 8:00 AM EST Office Visit [facility] [address] [place] [address] 3rd Floor, [address] [place] [address] Felix Harvey MD [address] [place] [address], [facility] [address] [place] [address] 10/14/2025 8:40 AM EST Office Visit [facility] Rheumatology [address] [place] [address] [place] [address] Katerine Velazquez MD, MPH [address] [facility], [address] [place] [address] (work) [email or web address] documented as of this encounter Results * Mammogram Needle Localization (Left) (08/30/2021 10:04 AM EDT) Anatomical Region Laterality Modality Breast Left, Breast Bilateral Left Ma mmography 08/30/2021 9:43 AM EDT Impressions 08/30/2021 12:36 PM EDT 1. Successful mammographic-guided needle localization of the grouped calcifications in the left breast. 2. Satisfactory surgical specimen containing the grouped calcifications. Narrative 08/30/2021 12:36 PM EDT MAMMOGRAPHIC-GUIDED LEFT BREAST NEEDLE LOCALIZATION AND SPECIMEN RADIOGRAPH INDICATION: Diagnostic mammogram on July 31, 2021 shows grouped calcifications at 6 o'clock position at 8 cm from the nipple in the left breast, for which a biopsy was recommended. Patient is not a candidate for stereotactic needle core biopsy, therefore, is here in preparation for a wire localization followed by excisional biopsy. COMPARISON: Diagnostic mammogram in July 31, 2021. PROCEDURE: Mammographic-Guided left Breast Needle Localization: The procedure, with its potential risks (including but not limited to pain, bleeding, infection and allergic reaction) and complications, was discussed with the patient, including the option of not performing the procedure. Written informed consent was obtained. The procedure site was marked by the attending physician. The inferior aspect of the patient's left breast was prepped with ChloraPrep using standard sterile technique. A full stop time-out was performed to verify patient identity, procedure, site and side. Under local anesthesia with 5 cc of lidocaine 1% buffered with Sodium bicarbonate 4.2% and mammographic guidance, a 19G 5-cm Bard Chesbrough needle was advanced towards the area of grouped calcifications using a inferior approach. A 15-cm localization wire was then deployed with the thick portion located adjacent to the area of calcifications. At the time of termination of the procedure, about 11 cm of the wire length is external to the skin. The patient tolerated the procedure well without any acute postprocedural complications. The patient subsequently proceeded to operating room. Estimated blood loss: None Surgical Specimen Radiograph: Radiographic image of the surgical specimen from the left breast was obtained. The surgical specimen contains the grouped calcifications as well as the double aminata and distal end of the localization wire. Findings communicated to Dr Cabello at the time of interpretation of the specimen image. Procedure Note Zoë Alfaro MD - 08/30/2021 MAMMOGRAPHIC-GUIDED LEFT BREAST NEEDLE LOCALIZATION AND SPECIMENRADIOGRAPH INDICATION: Diagnostic mammogram on July 31, 2021 shows groupedcalcifications at 6 o'clock position at 8 cm from the nipple in the leftbreast, for which a biopsy was recommended. Patient is not a candidate forstereotactic needle core biopsy, therefore, is here in preparation for awire localization followed by excisional biopsy. COMPARISON: Diagnostic mammogram in July 31, 2021. PROCEDURE: Mammographic-Guided left Breast Needle Localization: The procedure, with its potential risks (including but not limited topain, bleeding, infection and allergic reaction) and complications, wasdiscussed with the patient, including the option of not performing theprocedure. Written informed consent was obtained. The procedure site was marked by the attending physician. The inferioraspect of the patient's left breast was prepped with ChloraPrep usingstandard sterile technique. A full stop time-out was performed to verifypatient identity, procedure, site and side. Under local anesthesia with 5cc of lidocaine 1% buffered with Sodium bicarbonate 4.2% and mammographicguidance, a 19G 5-cm Bard Chesbrough needle was advanced towards the areaof grouped calcifications using a inferior approach. A 15-cm localizationwire was then deployed with the thick portion located adjacent to the areaof calcifications. At the time of termination of the procedure, about 11cm of the wire length is external to the skin. The patient tolerated the procedure well without any acute postproceduralcomplications. The patient subsequently proceeded to operating room. Estimated blood loss: None Surgical Specimen Radiograph: Radiographic image of the surgical specimen from the left breast wasobtained. The surgical specimen contains the grouped calcifications aswell as the double aminata and distal end of the localization wire. Findingscommunicated to Dr Cabello at the time of interpretation of the specimenimage. IMPRESSION: 1. Successful mammographic-guided needle localization of the groupedcalcifications in the left breast. 2. Satisfactory surgical specimen containing the grouped calcifications. Ashley Cabello MD IMG BI IRP GUIDED BREAST PROC Fi nal Result documented in this encounter Visit Diagnoses Diagnosis Abnormal mammogram- Primary Abnormal mammogram, unspecified Abnormal mammogram Abnormal mammogram, unspecified documented in this encounter Care Teams Resort Keeper Relationship Specialty Start Date End Date Luciano Yuen DO [address] [place] [address] [email or web address] PCP - General Internal Medicine 03/18/19 12/09/24 Luciano Yuen DO [address] [place] [address] PCP - General Internal Medicine 12/10/24 Kilo Horowitz MD [email or web address] Historical LMR Provider 09/06/17 Bhavana Espinoza NP [address] [place] [address] Historical LMR Provider 09/06/17 2 Adrianne Mehta MD [address] [place] [address] [email or web address] Primary Oncologist Medical Oncology 06/13/21 06/11/22 Danielle Wright, MULTISKILL OPERATOR 30 [place] [address] Nurse Practitioner Medical Oncology 09/07/21 Ashley Cabello MD [address] [place] [address] 8 [place] [address] General Surgery 09/11/21 Jyoti Stone MD [address] [place] [address] [email or web address] 01/01/22 Adrianne Mehta MD [address] [place] [email or web address] Primary Oncologist Medical Oncology 06/13/21 Luciano Yuen DO [address] [place] [address] [email or web address] Insurance Assigned Provider 02/21/24 11/22/24 Luciano Yuen DO [address] [place] [address] [email or web address] Insurance Assigned Provider 02/20/25 documented as of this encounter Additional Source Comments The information contained in this document represents components of the legal health record. It is not the complete legal health record.[facility]
--- OUTSIDE RECORDS SUMMARY | 2025-08-17 18:48 | XMS_ITS | Encounter Summary ---
Author Organization [facility] Address [address] [place] [address] Phone Care Team Providers Care Nozzle Operator Name Role Phone Kilo Horowitz MD Unavailable [email or web address] Bhavana Espinoza NP Unavailable Luciano Yuen DO Primary Care Provider [phone] Adrianne Mehta MD Unavailable Danielle Wright DATA VISUALIZATION DEVELOPER Unavailable Ashley Cabello MD Unavailable Jyoti Stone MD Unavailable [phone] Adrianne Mehta MD Unavailable Luciano Yuen DO Unavailable Luciano Yuen DO Primary Care Provider [phone] Luciano Yuen DO Unavailable Encounter Details Date Type Department Care Team (Late st Contact Info) Description 08/01/2021 Ancillary Orders Virtual Department [address] [place] [address] Luciano Yuen DO [address] [place] [address] Other abnormal and inconclusive findings on diagnostic imaging of breast Social History Tobacco Use Types Packs/Day Years [...] Visit [facility] at [address] [address] Adrianne Mehta MD [address] [place] [email or web address] 09/28/2025 8:00 AM EST Office Visit [facility] [address] [place] [address] [address] Floor, [address] [address] Felix Harvey MD [address] [place] [address] 10/14/2025 8:40 AM EST Office Visit [facility] Rheumatology [address] [place] [address] Katerine Velazquez MD, MPH [address] [place] [address] documented as of this encounter Visit Diagnoses Diagnosis Other abnormal and inconclusive findings on diagnostic imaging of breast documented in this encounter Care Teams Nozzle Operator Relationship Specialty Start Date End Date Luciano Yuen DO [address] [place] [address] PCP - General Internal Medicine 03/18/19 12/09/24 Luciano Yuen DO [address] [place], [place] [address], [place] [address] [email or web address] PCP - General Internal Medicine 12/10/24 Kilo Horowitz MD [email or web address] Historical LMR Provider 09/06/17 Bhavana Espinoza NP [address] [place] [address] Historical LMR Provider 09/06/17 2 Adrianne Mehta MD [address] [place] [address] [email or web address] Primary Oncologist Medical Oncology 06/13/21 06/11/22 Danielle Wright FNP [address] [place] [address] [email or web address] Nurse Practitioner Medical Oncology 09/07/21 Ashley Cabello MD [address] [place] [address] 8 [place] [address] General Surgery 09/11/21 Jyoti Sotne MD [address] [place] [address] [email or web address] Oncology 01/01/22 Adrianne Mehta MD [address] [place] [address] @[email or web address] Primary Oncologist Medical Oncology 06/13/21 Luciano Yuen DO [address] [place] [address] Insurance Assigned Provider 02/21/24 11/22/24 Luciano Yuen DO [address] [place] [address] [email or web address] Insurance Assigned Provider 02/20/25 documented as of this encounter Additional Source Comments The information contained in this document represents components of the legal health record. It is not the complete legal health record.[facility]
--- OUTSIDE RECORDS SUMMARY | 2025-08-17 18:48 | XMS_ITS | Encounter Summary ---
Author Organization [facility] Address [address] [place] [phone] Phone Care Team Providers Care Printing Plate Clerk Name Role Phone Kilo Horowitz MD Unavailable [email or web address] Bhavana Espinoza NP Unavailable [phone] Luciano Yuen DO Primary Care Provider [phone] Adrianne Mehta MD Unavailable [phone] Danielle Wright MINE SHIFTER Unavailable Ashley Cabello MD Unavailable Jyoti Stone MD Unavailable [phone] Adrianne Mehta MD Unavailable Luciano Yuen DO Unavailable Luciano Yuen DO Primary Care Provider [phone] Luciano Yuen DO Unavailable Encounter Details Date Type Department Care Team (Late st Contact Info) Description 07/25/2021 Ancillary Orders Virtual Department [address] [place] [address] Luciano Yuen DO [address] [place] [address] Breast screening Social History Tobacco Use Types [...] Description 09/14/2025 2:00 PM EDT Office Visit [facility] [address] [place] [address] Adrianne Mehta MD [address] [place] [address] 09/28/2025 8:00 AM EST Office Visit [facility] [address] [place] [address] 3rd Floor, [address] [place] [address] Felix Harvey MD [address] [place] [address] 10/14/2025 8:40 AM EST Office Visit [facility] Rheumatology [address] [place] [address] Katerine Velazquez MD, MPH [address] [place] [address], [address] [address] documented as of this encounter Results * (ABNORMAL) BI MAMMOGRAM SCREENING WITH TOMOSYNTHESIS WITH CAD (LEFT) (07/25/2021 11:29 AM EDT) Anatomical Region Laterality Modality Breast Left, Breast Bilateral Left Ma mmography 07/25/2021 2:12 PM EDT Impressions 07/25/2021 2:19 PM EDT Recommend magnification views for new group of microcalcifications in the lower left breast. No other findings suspicious for malignancy. The radiology department will attempt to recall the patient for the additional imaging. BI-RADS CATEGORY: 0 - Incomplete. Need additional imaging evaluation. DENSITY: There are scattered fibroglandular densities. LEFT RECOMMENDATION DUE DATE: 1 Month Left Additional Imaging RIGHT RECOMMENDATION DUE DATE: 12 Months Right Mammography Screening Narrative 07/25/2021 2:19 PM EDT Left screening mammogram is performed in conjunction with computed aided detection. 3-D tomography along with 2-D C view imaging was also performed. Comparison made to previous dated as far back as 11/29/2014 and as recent as 05/18/2020. The patient is status-post right mastectomy for breast malignancy in 2002. Group of microcalcifications in the posterior lower left breast at the approximate 6 clock position. While superficial lesion not clearly within the skin. No suspicious masses, areas of architectural distortion or other suspicious microcalcifications. us Luciano Yuen DO IMG MG EXAMS Final Result documented in this encounter Visit Diagnoses Diagnosis Breast screening Breast screening, unspecified Breast screening Breast screening, unspecified documented in this encounter Care Teams Printing Plate Clerk Relationship Specialty Start Date End Date Luciano Yuen DO [address] [place] [address] PCP - General Internal Medicine 03/18/19 12/09/24 Luciano Yuen DO [address] [place] [address] PCP - General Internal Medicine 12/10/24 Kilo Horowitz MD [email or web address] Historical LMR Provider 09/06/17 Bhavana Espinoza NP [address] [place] [address] Historical LMR Provider 09/06/17 2 Adrianne Mehta MD [address] [place] [address] [email or web address] Primary Oncologist Medical Oncology 06/13/21 06/11/22 Danielle Wright FNP [address] [place] [address] [email or web address] Nurse Practitioner Medical Oncology 09/07/21 Ashley Cabello MD [address] [place] [address] 8 [place] [address] [email or web address] General Surgery 09/11/21 Jyoti Stone MD [address] [place] [address] [email or web address] Oncology 01/01/22 Adrianne Mehta MD [address] [place] [address] [email or web address] Primary Oncologist Medical Oncology 06/13/21 Luciano Yuen DO [address] [place] [address] Insurance Assigned Provider 02/21/24 11/22/24 Luciano Yuen DO [address] [place] [address] [email or web address] Insurance Assigned Provider 02/20/25 documented as of this encounter Additional Source Comments The information contained in this document represents components of the legal health record. It is not the complete legal health record.[facility]
--- OUTSIDE RECORDS SUMMARY | 2025-08-17 18:48 | XMS_ITS | Encounter Summary ---
Author Organization [facility] Address [address] [place] [address] Phone Care Team Providers Care Herb Doctor Name Role Phone Kilo Horowitz MD Unavailable [email or web address] Adrianne Mehta MD Unavailable [phone] Bhavana Espinoza NP Unavailable [phone] Luciano Yuen DO Primary Care Provider + Luciano Yuen DO Unavailable + Adrianne Mehta MD Unavailable [phone] Danielle Wright CNMT Unavailable [phone] Ashley Cabello MD Unavailable Jyoti Stone MD Unavailable [phone] Adrianne Mehta MD Unavailable [phone] Luciano Yuen DO Unavailable Luciano Yuen DO Primary Care Provider + Luciano Yuen DO Unavailable + Reason for Referral * Outpatient Procedure - Closed Specialty Diagnoses / Procedures Referred By Contac t Referred To Contact Diagnoses Atrial fibrillation, unspecified type Procedures Adult Echo TTE Luciano Yuen DO Phone: tel: fax: [email or web address] Referral ID Status Reason Start Date Expiration Date Visits Re quested Visits Authorized [id number] Closed 06/23/2019 06/22/2020 1 1 Encounter Details Date Type Department Care Team (Late Contact Info) Description 06/23/2019 Transcribe Orders [facility] Department [address] [place] [address] Luciano Yuen DO [address] [facility] [place] [address] [place] [address] [email or web address] Atrial fibrillation, unspecified type (Primary Dx) Social History Tobacco Use Types [...] Description 09/14/2025 2:00 PM EDT Office Visit [facility] [address] [place] [address] Adrianne Mehta MD [address] [place] [address] 09/28/2025 8:00 AM EST Office Visit [facility] [address] Floor, [address] [place] [address] Felix Harvey MD [address] [place] [address] 10/14/2025 8:40 AM EST Office Visit [facility] Rheumatology [address] [place] [address] Katerine Velazquez MD, MPH [address] [place] [address] [address] [place] [address] [email or web address] documented as of this encounter Results * TTE COMPREHENSIVE (07/01/2019 9:54 AM EDT) Body Surface Area 2.3 m2 Height 170 cm Weight 124 kg Systolic BP 128 mmHg Diastolic BP 82 mmHg Interventricular Septum Thickness 12 mm Left Ventricle Internal Diameter End Diastole 46 37 - 52 mm Left Ventricle Internal Diameter End Systole 30 22 - 35 mm LVOT VTI REST 139 mm Left Ventricular Outflow Tract Velocity 0.7 m/s Left Ventricular Outflow Tract Gradient at Rest 2 mmHg Left Ventricular Posterior Wall Thickness 11 mm Ejection Fraction 57 50 - 75 Percent Left Atrium Dimension Anterior-Posterior 39 15 - 40 mm Aortic Valve Peak Velocity 115.0 cm/s Aortic Valve Peak Gradient 5 mmHg Aortic Sinus Diameter 26 mm Ascending Aorta Diameter 29 mm Inferior Vena Cava Diameter 16 0.0 - 21 mm Mitral Valve Deceleration Time 162 ms Mitral Valve E Wave Speed 79.1 cm/s Right Ventricle Basal Diameter 30.4 25 - 41 mm Tricuspid Valve Peak Velocity 1.8 m/s Raw LV EF% 57 % Right Ventricle Peak Systolic Pressure 16 mmHg Right Atrium Pressure Estimated 3 mmHg Right Ventricle to Right Atrium Pressure Gradient 13 mmHg Aortic Valve Sinus Index 1 11 19 - 27 mm Ascending Aorta Diameter 13 mm Aortic Sinus Index 11 mm Ascending Aorta Index 13 mm Left Atrial Volume 58 mL Left Atrial Volume Index 25.22 mL/m2 Anatomical Region Laterality Modality Heart Ultrasound Narrative 07/03/2019 7:59 AM EDT The predominant rhythm during the study was atrial fibrillation. The left ventricular cavity size and wall thickness are normal. Left ventricular systolic function is normal. There are no segmental left ventricular wall motion abnormalities noted. The estimated ejection fraction is 57% (Normal 50-75%). The left ventricular ejection fraction was measured by the bi-plane method of discs. Left ventricular diastolic function could not be adequately assessed. There is evidence of trace to mild aortic regurgitation by color and spectral Doppler. Normal pulmonary pressure. The RV systolic pressure was estimated from the peak TV regurgitant velocity. The estimated RV systolic pressure is 16 mmHg assuming a right atrial pressure of 3 mmHg. No prior studies for comparison. Left Ventricle The left ventricular cavity size and wall thickness are normal. Left ventricular systolic function is normal. There are no segmental left ventricular wall motion abnormalities noted. The estimated ejection fraction is 57% (Normal 50-75%). The left ventricular ejection fraction was measured by the bi-plane method of discs. Left ventricular diastolic function could not be adequately assessed. Right Ventricle The right ventricular size is normal. No evidence of right ventricular hypertrophy. The right ventricular systolic function is normal. Left Atrium The left atrium is normal in size. The left atrial anterior-posterior dimension measures 39 mm (normal 15-40 mm). The LA volume is 58 mL. The LA volume index is 25.22 mL/m2 (normal indexed value is 16-34 mL/m2). The pulmonary venous flow profiles are normal. Pulmonary vein connections were not well seen. Right Atrium The right atrium is normal in size. The IVC is normal in size (2.1cm or less). The IVC measures 16 mm (normal <=21 mm). The IVC demonstrates normal collapse with inspiration which is consistent with normal RA pressure. Mitral Valve The mitral valve appears normal. There is no evidence of mitral stenosis. There is no significant mitral regurgitation detected by spectral and color Doppler. Tricuspid Valve The tricuspid valve appears normal. There is no evidence of tricuspid stenosis. There is evidence of trace tricuspid regurgitation by color and spectral Doppler. Normal pulmonary pressure. The RV systolic pressure was estimated from the peak TV regurgitant velocity. The estimated RV systolic pressure is 16 mmHg assuming a right atrial pressure of 3 mmHg. Aortic Valve The aortic valve appears normal. The aortic valve is tricuspid. There is no evidence of valvular aortic stenosis. The peak aortic valve gradient is 5 mmHg. There is evidence of trace to mild aortic regurgitation by color and spectral Doppler. The visualized portions of the thoracic aorta appear normal. Pulmonic Valve The pulmonary valve appears normal. There is no evidence of pulmonic stenosis. Pericardium There is no evidence of pericardial effusion. There no evidence of a pleural effusion. Interatrial Septum The interatrial septum appears normal. Interventricular Septum Interventricular septal motion appears normal. General Findings The study was technically difficult (4). Technique(s) used in the evaluation: Color flow Doppler and Spectral Doppler. The predominant rhythm during the study was atrial fibrillation. Comparison Findings No prior studies for comparison. us Luciano A Bigda DO CV ECHO ORDERABLES Final Result documented in this encounter Visit Diagnoses Diagnosis Atrial fibrillation, unspecified type- Primary Atrial fibrillation, unspecified type documented in this encounter Care Teams Herb Doctor Relationship Specialty Start Date End Date FrandyLuciano quinnDO [address] [place] [address] [email or web address] PCP - General Internal Medicine 03/18/19 12/09/24 Luciano Yuen DO [address] [place] [address] [email or web address] PCP - General Internal Medicine 12/10/24 Kilo Horowitz MD [email or web address] Historical LMR Provider 09/06/17 Adrianne Mehta MD [address] [place] [address] [email or web address] Historical LMR Provider 09/06/17 06/12/21 Bhavana Espinoza NP [address] [place] [address] Historical LMR Provider 09/06/17 Luciano Yuen DO [address] [place] [address] [email or web address] Insurance Assigned Provider 03/20/19 06/12/21 Adrianne Mehta MD [address] [place] [phone] [email or web address] Primary Oncologist Medical Oncology 06/13/21 06/11/22 Danielle Wright FNP [address] [place] [address] Nurse Practitioner Medical Oncology 09/07/21 Ashley Cabello MD [address] [place] [address] 8 [place] [address] [email or web address] General Surgery 09/11/21 Jyoti Stone MD [address] [place] [address] [email or web address] Oncology 01/01/22 Adrianne Mehta MD [address] [place] [address] Primary Oncologist Medical Oncology 06/13/21 Luciano Yuen DO [address] [place] [address] Insurance Assigned Provider 02/21/24 11/22/24 Luciano Yuen DO [address] [place] [address] Insurance Assigned Provider 02/20/25 documented as of this encounter Additional Source Comments The information contained in this document represents components of the legal health record. It is not the complete legal health record.[facility]
[2025-08-17 19:38] LABS: Hematocrit 37.5 % (37.0-47.0); Hemoglobin 12.5 g/dl (12.0-16.0); Imm Gran Abs Auto 0.02 X10*3/uL (0.00-0.03); Imm Gran Pct Auto 0.3 % (0.0-0.4); Lymphocytes Absolute Auto 2.0 X10*3/uL (1.2-4.9); Mean Corpuscular HGB Conc 33.3 g/dl (31.0-35.0); Mean Corpuscular Hemoglobin 29.1 pg (27.0-33.0); Mean Corpuscular Volume 87.4 fL (80.0-98.0); NRBC Abs Auto 0.000 X10*3/uL (0.0-0.012); NRBC Pct Auto 0.0 /100WBC (0.0-0.2); Platelet Count 281 X10*3/uL (160-400); Red Blood Count 4.29 X10*6/uL (4.20-5.50); White Blood Count 6.2 X10*3/uL (4.8-10.8)
[2025-08-17 19:53] LABS: Alanine Aminotransferase 17 U/L (0-31); Albumin Level 4.2 g/dL (3.5-5.0); Alkaline Phosphatase 97 U/L (39-117); Anion Gap 12 (12-20); Aspartate Amino Transferase 21 U/L (5-31); Blood Urea Nitrogen 19 mg/dL (9-16); Calcium 9.5 mg/dL (8.4-10.2); Carbon Dioxide 28 mmol/L (22-29); Chloride 104 mmol/L (96-108); Cholesterol 273 mg/dL (<200); Estimated Glomerular Filt Rate 57; HDL Cholesterol 51 mg/dL (>40); Potassium 4.7 mmol/L (3.3-5.1); Sodium 139 mmol/L (135-145); Total Protein 6.8 g/dL (6.5-8.0); Triglycerides 147 mg/dL (<150)
== END 2025-08-17 18:42 | disposition home or self-care (01) ==
LOC: HO.LNP 18:41
PROVIDERS: Visit Provider Internal Medicine
DX: Z00.00 Encounter for general adult medical examination without abnormal findings (principal); Z13.6 Encounter for screening for cardiovascular disorders
CPT/HCPCS: 80053; 80061; 82306; 85025